=== PATIENT | female | born 1990 | race African-American/Black ===

== ENCOUNTER 2016-04-11 18:17 | Emergency (ER) | payer SELFPAY ==
--- NOTE | 2016-04-11 19:41 | ER Document Report ---
ED Flu Like - General Chief Complaint: Flu Symptoms Stated Complaint: BODY ACHES Mode of Arrival: Ambulatory Information source: Patient Notes: Pt is a 26 year old female who presents to the ER today for sore throat, body aches, chills with fever and nausea that began when she woke up this morning. She denies cough, runny nose. TRAVEL OUTSIDE OF THE [place] IN LAST 30 DAYS: No - Related Data Allergies/Adverse Reactions: Sulfa (Sulfonamide Antibiotics) Allergy (Verified 04/11/16 18:20) Past Medical History - General Information source: Patient - Social History Smoking Status: Never Smoker Chew tobacco use (# tins/day): No Frequency of alcohol use: Occasional Drug Abuse: None Family History: CAD, CVA, DM, Hypertension, Malignancy Patient has suicidal ideation: No Patient has homicidal ideation: No Endocrine Medical History: Reports: Hx Diabetes Mellitus Type 1, Hx Diabetes Mellitus Type 2 Past Surgical History: Reports: Hx Section - x2, Hx Tubal Ligation - Immunizations Immunizations up to date: Yes Hx Diphtheria, Pertussis, Tetanus Vaccination: Yes Review of Systems - Review of Systems Constitutional: See HPI EENT: See HPI Cardiovascular: No symptoms reported Respiratory: No symptoms reported Gastrointestinal: No symptoms reported Genitourinary: No symptoms reported Female Genitourinary: No symptoms reported Musculoskeletal: No symptoms reported Skin: No symptoms reported Hematologic/Lymphatic: No symptoms reported Neurological/Psychological: No symptoms reported Physical Exam - Notes Notes: PHYSICAL EXAMINATION: GENERAL: Obviously uncomfortable, mildly ill-appearing, but in no acute distress. HEAD: Atraumatic, normocephalic. EYES: Pupils equal round and reactive to light, extraocular movements intact, sclera anicteric, conjunctiva are normal. ENT: ear canals without erythema or foreign body, TMs pearly ram with good bony landmarks, nares patent, oropharynx erythematous with enlarged tonsils bilaterally with exudates. Moist mucous membranes. NECK: Normal range of motion, supple with cervical bilateral lymphadenopathy , tender LUNGS: CTAB and equal. No wheezes rales or rhonchi. HEART: Regular rate and rhythm without murmurs EXTREMITIES: Normal range of motion, no pitting edema. No cyanosis. NEUROLOGICAL: Cranial nerves grossly intact. Normal sensory/motor exams. PSYCH: Normal mood, normal affect. SKIN: Warm, Dry, normal turgor, no rashes or lesions noted Course - Re-evaluation Re-evalutation: 04/11/16 20:30 04/11/16 21:17 Pt is positive for strep. She received magic mouthwash to take home. She also received her first abx dose here. Discharge - Discharge Clinical Impression: Strep pharyngitis Condition: Stable Disposition: HOME, SELF-CARE Additional Instructions: Return immediately for any new or worsening symptoms. Follow up with primary care provider, call tomorrow to make followup appointment. Prescriptions: Amoxicillin 500 mg PO BID #20 capsule Ibuprofen [Motrin 800 mg Tablet] 800 mg PO Q8H PRN #30 tab PRN Reason: Forms: Return to Work
[2016-04-11] MEDS ORDERED: CYCLOBENZAPRINE HCL 10 MG TABLET PO ONE (20:28)
[2016-04-11] MEDS ORDERED: IBUPROFEN 800 MG TABLET PO ONE (20:28)
[2016-04-11] MEDS ORDERED: NYSTATIN/DEXAMETH/DIPHEN SUSP 120 ML PO ONE (20:28)
[2016-04-11] MEDS ORDERED: AMOXICILLIN TRIHYDRATE 500 MG CAPSULE PO ONE (20:52)
[2016-04-11 21:27] VITALS: BP 132/67
== END 2016-04-11 21:32 | disposition home or self-care (01) ==
LOC: ER 18:17
DX: J02.0 Streptococcal pharyngitis (principal); R52 Pain, unspecified; R50.9 Fever, unspecified; R11.0 Nausea
CPT/HCPCS: 99283; 87880; 87804; J3490

== ENCOUNTER 2016-04-29 12:22 | Emergency (ER) | payer SELFPAY ==
[2016-04-29 12:47] VITALS: BP 132/81
--- NOTE | 2016-04-29 13:05 | ER Document Report ---
ED Medical Screen (RME) - General Chief Complaint: Lip Swelling Stated Complaint: THROAT PAIN Mode of Arrival: Ambulatory Information source: Patient Notes: 26 y/o F presents to ED c/o sore throat and left lower lip swelling which she noted this morning. Reports recent dx of strep throat. Denies difficulty breathing or swallowing. TRAVEL OUTSIDE OF THE [place] IN LAST 30 DAYS: No - Related Data Allergies/Adverse Reactions: No Known Allergies Allergy (Verified 04/29/16 12:58) Past Medical History - Social History Frequency of alcohol use: Occasional Drug Abuse: None Family history: Reviewed & Not Pertinent Endocrine Medical History: Reports: Hx Diabetes Mellitus Type 1, Hx Diabetes Mellitus Type 2 Renal/ Medical History: Denies: Hx Peritoneal Dialysis Past Surgical History: Reports: Hx Section - x2, Hx Tubal Ligation - Immunizations Immunizations up to date: Yes Hx Diphtheria, Pertussis, Tetanus Vaccination: Yes Physical Exam - Vital signs Vitals: Temp Pulse BP Pulse Ox 98.1 F 75 132/81 H 99 04/29/16 12:46 04/29/16 12:46 04/29/16 12:46 04/29/16 12:46 - General General appearance: Appears well, Alert In distress: None Course - Vital Signs Vital signs: Temp Pulse Resp BP Pulse Ox 98.1 F 75 132/81 H 99 04/29/16 12:46 04/29/16 12:46 04/29/16 12:46 04/29/16 12:46
--- NOTE | 2016-04-29 13:27 | ER Document Report ---
ED ENT - General Chief Complaint: Lip Swelling Stated Complaint: THROAT PAIN Mode of Arrival: Ambulatory TRAVEL OUTSIDE OF THE [place] IN LAST 30 DAYS: No - Related Data Allergies/Adverse Reactions: No Known Allergies Allergy (Verified 04/29/16 12:58) Past Medical History - General Information source: Patient - Social History Smoking Status: Never Smoker Frequency of alcohol use: Occasional Drug Abuse: None Family History: CAD, CVA, DM, Hypertension, Malignancy Patient has suicidal ideation: No Patient has homicidal ideation: No Endocrine Medical History: Reports: Hx Diabetes Mellitus Type 1, Hx Diabetes Mellitus Type 2 Renal/ Medical History: Denies: Hx Peritoneal Dialysis Past Surgical History: Reports: Hx Section - x2, Hx Tubal Ligation - Immunizations Immunizations up to date: Yes Hx Diphtheria, Pertussis, Tetanus Vaccination: Yes Physical Exam - Vital signs Vitals: Temp Pulse BP Pulse Ox 98.1 F 75 132/81 H 99 04/29/16 12:46 04/29/16 12:46 04/29/16 12:46 04/29/16 12:46 Interpretation: Normal. No: Tachycardic, Hypoxic, Tachypneic, Febrile Course - Re-evaluation Re-evalutation: 04/29/16 14:11 Results rapid strep test discussed with patient. Patient admits to being poorly compliant with previous antibiotic prescription, saying that she stopped about 2 days early. - Vital Signs Vital signs: Temp Pulse Resp BP Pulse Ox 98.1 F 75 132/81 H 99 04/29/16 12:46 04/29/16 12:46 04/29/16 12:46 04/29/16 12:46 Discharge - Discharge Clinical Impression: Strep pharyngitis Condition: Stable Disposition: HOME, SELF-CARE Instructions: Strep Throat ([facility]), Amoxicillin ([facility]) Additional Instructions: TAKE AMOXICILLIN DIRECTED, STARTING TODAY AND CONTINUING FOR THE FULL 14 DAYS PRESCRIBED. TAKE BENADRYL, 25-50 mg EVERY 4 TO 6 HOURS TO HELP REDUCE SWELLING IN LIP. RETURN FOR RE-EVALUATION IF YOU GET WORSE, ANY TIME. Prescriptions: Amoxicillin Trihydrate [Amoxil 500 mg Capsule] 500 mg PO TID #42 cap
[2016-04-29] MEDS ORDERED: DIPHENHYDRAMINE HCL 25 MG CAPSULE PO ONE (14:18)
== END 2016-04-29 14:24 | disposition home or self-care (01) ==
LOC: ER 12:22
DX: J02.0 Streptococcal pharyngitis (principal); E11.9 Type 2 diabetes mellitus without complications
CPT/HCPCS: 87880; 99283

== ENCOUNTER 2016-12-02 02:18 | Emergency (ER) | payer SELFPAY ==
--- NOTE | 2016-12-02 02:57 | ER Document Report ---
ED General - General Chief Complaint: Foot Pain Stated Complaint: FALL/FOOT PAIN Time Seen by Provider: 12/02/16 02:52 Notes: Patient is a 26-year-old female presents with complaint of pain in her right foot. Patient says that someone stepped on her foot she has severe pain and she has pain with bearing weight. No numbness the foot. No pain in his ankle. Injuries only to the distal foot itself. No other complaints at this time. TRAVEL OUTSIDE OF THE [place] IN LAST 30 DAYS: No - Related Data Allergies/Adverse Reactions: No Known Allergies Allergy (Verified 12/02/16 02:21) Past Medical History - Social History Smoking Status: Unknown if Ever Smoked Frequency of alcohol use: None Drug Abuse: None Family History: CAD, CVA, DM, Hypertension, Malignancy Patient has suicidal ideation: No Patient has homicidal ideation: No Endocrine Medical History: Reports: Hx Diabetes Mellitus Type 1, Hx Diabetes Mellitus Type 2 Renal/ Medical History: Denies: Hx Peritoneal Dialysis Past Surgical History: Reports: Hx Section - x2, Hx Tubal Ligation - Immunizations Immunizations up to date: Yes Hx Diphtheria, Pertussis, Tetanus Vaccination: Yes Review of Systems - Review of Systems Notes: My Normal Review Basic REVIEW OF SYSTEMS: MUSCULOSKELETAL: Right foot pain SKIN: Denies rash or skin lesions. NEUROLOGICAL: Denies sensory or motor loss. ALL OTHER SYSTEMS REVIEWED AND NEGATIVE. Physical Exam - Vital signs Vitals: Temp Pulse Resp BP Pulse Ox 98.1 F 78 18 143/80 H 100 12/02/16 02:21 12/02/16 02:21 12/02/16 02:21 12/02/16 02:21 12/02/16 02:21 - Notes Notes: General Appearance: Well nourished, alert, cooperative, no acute distress, no obvious discomfort. Vitals: reviewed, See vital signs table. Extremities: strength 5/5 in all extremities, good pulses in all extremities, mild swelling of the dorsum of the right foot mainly at the first MTP joint. Pain to palpation of the distal third of the foot. Remainder of the foot is nontender. Patient is able to flex and extend her toes without difficulty. Skin: warm, dry, appropriate color, no rash Neuro: speech clear, oriented x 3, normal affect, responds appropriately to questions. Distal sensation intact. Course - Re-evaluation Re-evalutation: 12/02/16 04:03 Patient's x-rays negative. I offered patient crutches but states that she does not need them and said she is able to walk. Patient discharged but encouraged to return to ER if she has worsening pain or further concerns. Dictation of this chart was performed using voice recognition software; therefore, there may be some unintended grammatical errors. - Vital Signs Vital signs: Temp Pulse Resp BP Pulse Ox 98.1 F 78 18 143/80 H 100 12/02/16 02:21 12/02/16 02:21 12/02/16 02:21 12/02/16 02:21 12/02/16 02:21 Discharge - Discharge Clinical Impression: Contusion of foot, right Qualifiers: Encounter type: initial encounter Qualified Code(s): S90.31XA - Contusion of right foot, initial encounter Condition: Good Disposition: HOME, SELF-CARE Additional Instructions: Please return to the ER immediately if you develop worsening pain, redness or increased swelling to your foot, or if you have further concerns. Please take Motrin and Tylenol for pain. Forms: Return to Work
--- NOTE | 2016-12-02 03:53 | RADIOLOGY REPORT (SQ) ---
EXAM DESCRIPTION: FOOT RIGHT 2 VIEWS COMPLETED DATE/TIME: 12/02/2016 3:18 am REASON FOR STUDY: trauma. Fall. Pain on top of the right foot in the middle. COMPARISON: None. NUMBER OF VIEWS: Two views. TECHNIQUE: AP and lateral radiographic images acquired of the right foot. LIMITATIONS: None. FINDINGS: MINERALIZATION: Normal. BONES: No acute fracture or dislocation. SOFT TISSUES: No soft tissue swelling. No radiopaque foreign body. IMPRESSION: No radiographic evidence of acute injury. TECHNICAL DOCUMENTATION: JOB ID: [id number] [employer]- All Rights Reserved
[2016-12-02 04:31] VITALS: BP 174/90
== END 2016-12-02 04:29 | disposition home or self-care (01) ==
LOC: ER 02:18
DX: S90.31XA Contusion of right foot, initial encounter (principal); W50.0XXA Accidental hit or strike by another person, initial encounter; E11.9 Type 2 diabetes mellitus without complications; Z98.51 Tubal ligation status
CPT/HCPCS: 99283

== ENCOUNTER 2017-01-11 21:09 | Emergency (ER) | payer SELFPAY ==
[2017-01-11 21:24] VITALS: BP 147/87
== END 2017-01-11 22:20 | disposition left against medical advice (07) ==
LOC: ER 21:09
DX: Z53.9 Procedure and treatment not carried out, unspecified reason (principal); R10.9 Unspecified abdominal pain

== ENCOUNTER 2017-05-11 04:54 | Emergency (ER) | payer SELFPAY ==
[2017-05-11 04:59] VITALS: BP 145/90
[2017-05-11] MEDS ORDERED: HYDROCODONE/ACETAMINOPHEN 5-325 MG TABLET PO ONE (05:24)
[2017-05-11] MEDS ORDERED: HYDROCODONE/ACETAMINOPHEN 5-325 MG (6 TAB/ER DISP) PO PRN (05:24)
--- NOTE | 2017-05-11 05:26 | ER Document Report ---
ED Oral Problem - General Chief Complaint: Toothache Stated Complaint: FACE SWELLING Time Seen by Provider: 05/11/17 05:18 Mode of Arrival: Ambulatory Information source: Patient Notes: Patient is a 27-year-old female who presents to the ER today for a broken tooth to the upper left jaw that broke yesterday and she was eating. Patient admits to a little bit of swelling to the area and a lot of pain. She has used multiple epci-sty-rxrhyiz numbing agents as well as ibuprofen and Tylenol and she states she cannot sleep. She states that she has contacted a dentist and has an appointment set up. TRAVEL OUTSIDE OF THE [place] IN LAST 30 DAYS: No - Related Data Allergies/Adverse Reactions: No Known Allergies Allergy (Verified 12/02/16 02:21) Past Medical History - General Information source: Patient - Social History Smoking Status: Never Smoker Frequency of alcohol use: Occasional Drug Abuse: None Family History: CAD, CVA, DM, Hypertension, Malignancy Patient has suicidal ideation: No Patient has homicidal ideation: No Endocrine Medical History: Reports: Hx Diabetes Mellitus Type 1, Hx Diabetes Mellitus Type 2 Renal/ Medical History: Denies: Hx Peritoneal Dialysis Past Surgical History: Reports: Hx Section - x2, Hx Tubal Ligation - Immunizations Immunizations up to date: Yes Hx Diphtheria, Pertussis, Tetanus Vaccination: Yes Review of Systems - Review of Systems Constitutional: No symptoms reported EENT: See HPI Cardiovascular: No symptoms reported Respiratory: No symptoms reported Gastrointestinal: No symptoms reported Genitourinary: No symptoms reported Female Genitourinary: No symptoms reported Musculoskeletal: No symptoms reported Skin: No symptoms reported Hematologic/Lymphatic: No symptoms reported Neurological/Psychological: No symptoms reported Physical Exam - Vital signs Vitals: Temp Pulse Resp BP Pulse Ox 99.0 F 89 18 145/90 H 99 05/11/17 04:55 05/11/17 04:55 05/11/17 04:55 05/11/17 04:55 05/11/17 04:55 - Notes Notes: but PHYSICAL EXAMINATION: GENERAL: uncomfortable appearing, in no acute distress. HEAD: Atraumatic, normocephalic. EYES: Pupils equal round and reactive to light, extraocular movements intact, sclera anicteric, conjunctiva are normal. ENT: ear canals without erythema or foreign body, TMs pearly ram with good bony landmarks, nares patent, oropharynx clear without exudates. Moist mucous membranes. Tooth #12 with open fracture, tender to palpation, no erythema or edema, no drainage noted NECK: Normal range of motion, supple without lymphadenopathy LUNGS: CTAB and equal. No wheezes rales or rhonchi. HEART: Regular rate and rhythm without murmurs EXTREMITIES: Normal range of motion, no pitting edema. No cyanosis. NEUROLOGICAL: Cranial nerves grossly intact. Normal sensory/motor exams. PSYCH: Normal mood, normal affect. SKIN: Warm, Dry, normal turgor, no rashes or lesions noted Course - Vital Signs Vital signs: Temp Pulse Resp BP Pulse Ox 99.0 F 89 18 145/90 H 99 05/11/17 04:55 05/11/17 04:55 05/11/17 04:55 05/11/17 04:55 05/11/17 04:55 Discharge - Discharge Clinical Impression: Tooth fracture Qualifiers: Encounter type: initial encounter Fracture type: open Qualified Code(s): S02.5XXB - Fracture of tooth (traumatic), initial encounter for open fracture Condition: Stable Disposition: HOME, SELF-CARE Additional Instructions: Return immediately for any new or worsening symptoms. Follow up with Dentist, call tomorrow to make followup appointment. Prescriptions: Amoxicillin 500 mg PO BID #20 capsule Referrals: [facility] [Provider Group] - Follow up as needed
== END 2017-05-11 05:36 | disposition home or self-care (01) ==
LOC: ER 04:54
DX: S02.5XXB Fracture of tooth (traumatic), initial encounter for open fracture (principal); X58.XXXA Exposure to other specified factors, initial encounter; E11.9 Type 2 diabetes mellitus without complications; Z98.51 Tubal ligation status
CPT/HCPCS: 99283

== ENCOUNTER 2017-11-12 22:05 | Emergency (ER) | payer SELFPAY ==
--- NOTE | 2017-11-13 01:04 | ER Document Report ---
ED General - General Chief Complaint: Passed Out Prior to Arrival Stated Complaint: FAINTED,DIZZINESS,BLURRY VISION Time Seen by Provider: 11/13/17 00:30 TRAVEL OUTSIDE OF THE [place] IN LAST 30 DAYS: No - HPI Patient complains to provider of: Lightheadedness and weakness Onset: Other - 27-year-old insulin-dependent diabetic presents for evaluation of lightheadedness and weight is which she has had intermittently worsening over last week prompting her to seek care tonight. She notes that she ran out of insulin and Lantus a while back so decided to stop taking them. She has not seen a doctor in a long time, denies any constipation diarrhea dysuria abdominal pain cramps chest pain palpitations shortness of breath or other symptoms. Denies any focal numbness or weakness. Nothing makes it better nothing makes it worse - Related Data Allergies/Adverse Reactions: No Known Allergies Allergy (Verified 12/02/16 02:21) Past Medical History - Social History Smoking Status: Never Smoker Cigarette use (# per day): No Chew tobacco use (# tins/day): No Family History: CAD, CVA, DM, Hypertension, Malignancy Endocrine Medical History: Reports: Hx Diabetes Mellitus Type 1, Hx Diabetes Mellitus Type 2 Renal/ Medical History: Denies: Hx Peritoneal Dialysis Past Surgical History: Reports: Hx Section - x2, Hx Tubal Ligation - Immunizations Immunizations up to date: Yes Hx Diphtheria, Pertussis, Tetanus Vaccination: Yes Review of Systems - Review of Systems -: Yes All other systems reviewed and negative Physical Exam - Vital signs Vitals: Temp Pulse Resp BP Pulse Ox 98.3 F 56 L 18 140/78 H 91 L 11/12/17 22:13 11/12/17 22:13 11/12/17 22:13 11/12/17 22:13 11/12/17 22:13 - General General appearance: Appears well In distress: None - HEENT Head: Normocephalic Eyes: Normal Conjunctiva: Normal Cornea: Normal - Respiratory Respiratory status: No respiratory distress Chest status: Nontender Breath sounds: Normal Chest palpation: Normal - Cardiovascular Rhythm: Regular Heart sounds: Normal auscultation Murmur: No - Abdominal Inspection: Normal Bowel sounds: Normal Tenderness: Nontender - Back Back: Normal - Extremities General upper extremity: Normal inspection General lower extremity: Normal inspection Shoulder: Normal - Neurological Neuro grossly intact: Yes Cognition: Normal Orientation: AAOx4 - Psychological Associated symptoms: Normal affect Course - Re-evaluation Re-evalutation: 11/13/17 03:57 This 27-year-old insulin-dependent diabetic presented for evaluation of some lightheadedness. She notes that she has been off of her insulin ever since running out several weeks ago because it is too expensive for her to see her primary physician. She denies any recent trauma fevers chills or other symptoms at this time. She is neurologically intact has benign examination. Blood glucose is in the 360 range otherwise has a relatively unremarkable chemistry and count. We will plan for administration of subcutaneous insulin. Patient's blood glucose improved after administration of insulin, [id number] glucose downtrending. Patient will follow up with primary physician in regards to initiating treatment with insulin as previously. She is ambulatory able to tolerate p.o. and well-appearing at the time of discharge. She agrees with current course of action will return for any worsening symptoms. - Vital Signs Vital signs: Temp Pulse Resp BP Pulse Ox 98.3 F 56 L 18 140/78 H 91 L 11/12/17 22:13 11/12/17 22:13 11/12/17 22:13 11/12/17 22:13 11/12/17 22:13 - Laboratory Result Diagrams: 11/13/17 00:45 11/13/17 00:45 Laboratory results interpreted by me: 11/13/17 11/13/17 11/13/17 00:45 00:45 01:27 Hgb 9.0 L Hct 29.1 L MCV 66 L MCH 20.5 L MCHC 30.9 L RDW 18.2 H Sodium 136.9 L Glucose 348 H POC Glucose AST 38 H Urine Glucose (UA) >=500 H 11/13/17 02:58 Hgb Hct MCV MCH MCHC RDW Sodium Glucose POC Glucose 337 H AST Urine Glucose (UA) Discharge - Discharge Clinical Impression: Hyperglycemia Condition: Stable Disposition: HOME, SELF-CARE Instructions: Diabetes ([facility]), Insulin ([facility]) Additional Instructions: You were seen today in the emergency department for your high blood sugar, he had an evaluation including a physical exam as well as an EKG and tests of your blood. It appears that your elevated blood sugar is likely causing her symptoms, you need to call your physician today to schedule an appointment this week to restart taking your insulin. Return for any worsening headache numbness or weakness inability to eat or drink nausea or vomiting.
[2017-11-13 01:22] LABS: ABSOLUTE EOSINOPHILS # (AUTO) 0.1 10^3/uL (0.0-0.6); ABSOLUTE LYMPHOCYTES (AUTO) 2.9 10^3/uL (0.5-4.7); ABSOLUTE MONOCYTES (AUTO) 0.5 10^3/uL (0.1-1.4); ABSOLUTE NEUT (AUTO) 3.3 10^3/uL (1.7-8.2); ALANINE AMINOTRANSFERASE 44 U/L (9-52); ALBUMIN 3.9 g/dL (3.5-5.0); ALKALINE PHOSPHATASE 96 U/L (38-126); ANION GAP 12 (5-19); ASPARTATE AMINO TRANSFERASE 38 U/L (14-36); BASOPHILS % (AUTO) 0.6 % (0-2); BILIRUBIN,DIRECT 0.2 mg/dL (0.0-0.4); BILIRUBIN,TOTAL 0.3 mg/dL (0.2-1.3); BLOOD UREA NITROGEN 8 mg/dL (7-20); CALCIUM 9.5 mg/dL (8.4-10.2); CARBON DIOXIDE 24 mmol/L (22-30); CHLORIDE 101 mmol/L (98-107); EOSINOPHILS % (AUTO) 0.9 % (0-6); GLUCOSE 348 mg/dL (75-110); HEMATOCRIT 29.1 % (36.0-47.0); LYMPHOCYTES % (AUTO) 43.4 % (13-45); MEAN CORPUSCULAR HEMOGLOBIN 20.5 pg (27.0-33.4); MEAN CORPUSCULAR HGB CONC 30.9 g/dL (32.0-36.0); MEAN CORPUSCULAR VOLUME 66 fl (80-97); PLATELET COUNT 354 10^3/uL (150-450); RED BLOOD COUNT 4.38 10^6/uL (3.72-5.28); RED CELL DISTRIBUTION WIDTH 18.2 % (11.5-14.0); SEGMENTED NEUTROPHILS % (AUTO) 48.1 % (42-78); SODIUM 136.9 mmol/L (137-145); TOTAL CELLS COUNTED % (AUTO) 100 %; TOTAL PROTEIN 7.3 g/dL (6.3-8.2); WHITE BLOOD COUNT 6.8 10^3/uL (4.0-10.5)
[2017-11-13] MEDS ORDERED: INSULIN REG, HUMAN 100 UNIT/ML 3 ML VIAL (PYX) SUBCUT ONE (01:41)
[2017-11-13 02:10] LABS: APPEARANCE,URINE CLEAR; BILIRUBIN,URINE NEGATIVE (NEGATIVE); COLOR,URINE STRAW; GLUCOSE, URINE >=500 mg/dL (NEGATIVE); KETONES,URINE NEGATIVE (NEGATIVE); LEUKOCYTE ESTERASE,URINE NEGATIVE (NEGATIVE); NITRITE,URINE NEGATIVE (NEGATIVE); PROTEIN,URINE NEGATIVE (NEGATIVE); URINE SPECIFIC GRAVITY 1.037; UROBILINOGEN,URINE NEGATIVE mg/dL (<2.0)
[2017-11-13 03:59] VITALS: BP 121/65
--- NOTE | 2017-11-13 11:31 | EKG REPORT ---
SEVERITY:- NORMAL ECG - SINUS RHYTHM : Confirmed by: Anna De Leon MD 13-Nov-2017 11:30:35
== END 2017-11-13 04:07 | disposition home or self-care (01) ==
LOC: ER 22:05
DX: E11.65 Type 2 diabetes mellitus with hyperglycemia (principal); R55 Syncope and collapse; R42 Dizziness and giddiness; H53.8 Other visual disturbances; R53.1 Weakness; Z79.4 Long term (current) use of insulin; Z91.19 Patient's noncompliance with other medical treatment and regimen
CPT/HCPCS: 93005; 99284; 36415; 82962; 85025; 81025; 80053; 81001; 93010; J1815

== ENCOUNTER 2018-03-03 08:27 | Emergency (ER) | payer SELFPAY ==
[2018-03-03 08:33] VITALS: BP 131/78
--- NOTE | 2018-03-03 09:38 | ER Document Report ---
ED Foreign Body - General Chief Complaint: Foreign Body in Vagina Stated Complaint: STOMACH PAIN, FB IN VAGINA Time Seen by Provider: 03/03/18 09:11 TRAVEL OUTSIDE OF THE [place] IN LAST 30 DAYS: No - HPI Notes: Patient is a 27 yo female that presents to the emergency department for chief complaint of tampon stuck in vagina. Patient inserted a tampon in her vagina yesterday morning. She forgot that it was in there and had intercourse with her last night. Today she remembered and was unable to feel or retrieve the tampon. She denies any vaginal discharge or bleeding currently. She denies any pelvic pain or pressure. She does have diabetes which she states is well controlled. She denies any concern for STD. She denies any dysuria or hematuria Past Medical History: Diabetes Past Surgical History: Negative Social History: Occasional cigars. Occasional alcohol. Denies drug use Family History: Reviewed and noncontributory for presenting illness Allergies: Reviewed, see documented allergy list. REVIEW OF SYSTEMS: CONSTITUTIONAL : No fever No chills No diaphoresis No recent illness EENT: No vision changes No congestion No sore throat CARDIOVASCULAR: No chest pain No palpitations RESPIRATORY: No shortness of breath No cough No difficulty breathing GASTROINTESTINAL: No abdominal pain No nausea No vomiting No diarrhea GENITOURINARY: No dysuria No hematuria No difficulty urinating MUSCULOSKELETAL: No back pain No leg pain No arm pain SKIN: No rashes No lesions LYMPHATIC: No swollen, enlarged glands. NEUROLOGICAL: No lightheadedness No headache No weakness No paresthesias PSYCHIATRIC: No anxiety No depression PHYSICAL EXAMINATION: Vital signs reviewed, nursing noted reviewed. GENERAL: Well-appearing, well-nourished and in no acute distress. HEAD: Atraumatic, normocephalic. EYES: Eyes appear normal, extraocular movements intact, sclera anicteric, conjunctiva are normal. ENT: nares patent, oropharynx clear without exudates. Moist mucous membranes. NECK: Normal range of motion, supple without lymphadenopathy LUNGS: Breath sounds clear to auscultation bilaterally and equal. No wheezes rales or rhonchi. HEART: Regular rate and rhythm without murmurs ABDOMEN: Soft, nontender, normoactive bowel sounds. No rebound, guarding, or rigidity. No masses appreciated. : No vaginal bleeding or discharge. Large dry tampon in vagina EXTREMITIES: Nontender, good range of motion, no pitting or edema. NEUROLOGICAL: No focal neurological deficits. Moves all extremities spontaneously Motor and sensory grossly intact on exam. PSYCH: Normal mood, normal affect. SKIN: Warm, Dry, normal turgor, no rashes or lesions noted on exposed skin - Related Data Allergies/Adverse Reactions: No Known Allergies Allergy (Verified 12/02/16 02:21) Past Medical History - Social History Smoking Status: Current Some Day Smoker Family History: CAD, CVA, DM, Hypertension, Malignancy Endocrine Medical History: Reports: Hx Diabetes Mellitus Type 1, Hx Diabetes Mellitus Type 2 Renal/ Medical History: Denies: Hx Peritoneal Dialysis Past Surgical History: Reports: Hx Section - x2, Hx Tubal Ligation - Immunizations Immunizations up to date: Yes Hx Diphtheria, Pertussis, Tetanus Vaccination: Yes Physical Exam - Vital signs Vitals: Temp Pulse Resp BP Pulse Ox 98.0 F 84 16 131/78 H 99 03/03/18 08:32 03/03/18 08:32 03/03/18 08:32 03/03/18 08:32 03/03/18 08:32 Course - Re-evaluation Re-evalutation: 03/03/18 09:36 Vitals reviewed. Nursing notes reviewed. Patient had an impacted tampon which was removed in the emergency room. She is not having any pelvic pain or vaginal discharge requiring antibiotics. I did investment counselor her on monitoring for increased pain or vaginal discharge and bleeding. She will be referred to gynecology for follow-up if symptoms begin. Or she will return to the emergency room for any new or worsening symptoms. She is stable at discharge. Prophylactic antibiotics not currently indicated. - Vital Signs Vital signs: Temp Pulse Resp BP Pulse Ox 98.0 F 84 16 131/78 H 99 03/03/18 08:32 03/03/18 08:32 03/03/18 08:32 03/03/18 08:32 03/03/18 08:32 Procedures - Additional Procedures Foreign body removal Time performed: 09:37 Notes: 03/03/18 09:37 Pelvic exam performed using sterile speculum. Direct visualization of tampon with removal using long alligator forceps. No complications. Patient tolerated well. No bleeding. Discharge - Discharge Clinical Impression: Foreign body in vagina Qualifiers: Encounter type: initial encounter Qualified Code(s): T19.2XXA - Foreign body in vulva and vagina, initial encounter Condition: Stable Disposition: HOME, SELF-CARE Instructions: Foreign Body ([facility]) Additional Instructions: Please return to the emergency department if you have any worsening, or concern of your symptoms. Please return to the emergency department if you develop chest pain, difficulty breathing, severe abdominal pain, or ongoing vomiting. Please follow-up with your primary care physician in 2-3 days and any other recommended physicians. If prescribed, take all medications as directed. If you have any questions or concerns do not hesitate to return the emergency department for evaluation. Return to the emergency room or follow-up with gynecology if you develop increased pelvic pain or vaginal discharge Referrals: [facility] [Provider Group] - Follow up as needed
== END 2018-03-03 09:30 | disposition home or self-care (01) ==
LOC: ER 08:27
DX: T19.2XXA Foreign body in vulva and vagina, initial encounter (principal); X58.XXXA Exposure to other specified factors, initial encounter; E11.9 Type 2 diabetes mellitus without complications; F17.290 Nicotine dependence, other tobacco product, uncomplicated
CPT/HCPCS: 99283

== ENCOUNTER 2018-04-15 10:42 | Emergency (ER) | payer SELFPAY ==
[2018-04-15] MEDS ORDERED: ONDANSETRON 4 MG TAB.RAPDIS PO ONE (10:58)
[2018-04-15] MEDS ORDERED: OXYCODONE-ACETAMINOPHEN 5-325 MG TABLET PO ONE (10:58)
--- NOTE | 2018-04-15 11:10 | ER Document Report ---
ED Medical Screen (RME) - General Chief Complaint: Abdominal Pain Stated Complaint: SIDE PAIN Time Seen by Provider: 04/15/18 10:54 Notes: RAPID MEDICAL EVALUATION DISCLOSURE I have seen this patient as part of a Rapid Medical Evaluation and, if applicable, placed any initially appropriate orders. The patient will be seen and fully evaluated, including a full history and physical exam, by a provider (in Main ED or Fast Track) when a room becomes available. 28-year-old female PMH CKD here with complaints of right flank pain nonradiating sharp intermittent as well as hematuria ongoing for the past 1 day. She has associated nausea but no vomiting diarrhea dysuria fevers chills. She denies any previous history of kidney stones. EXAM Minimal right upper quadrant TTP Mild to moderate right flank TTP No CVA TTP TRAVEL OUTSIDE OF THE [place] IN LAST 30 DAYS: No - Related Data Allergies/Adverse Reactions: No Known Allergies Allergy (Verified 04/15/18 10:45) Past Medical History - Social History Family history: Reviewed & Not Pertinent Endocrine Medical History: Reports: Hx Diabetes Mellitus Type 1, Hx Diabetes Mellitus Type 2 Renal/ Medical History: Denies: Hx Peritoneal Dialysis Past Surgical History: Reports: Hx Section - x2, Hx Tubal Ligation - Immunizations Immunizations up to date: Yes Hx Diphtheria, Pertussis, Tetanus Vaccination: Yes Physical Exam - Vital signs Vitals: Temp Pulse Resp BP Pulse Ox 98.2 F 95 16 141/91 H 100 04/15/18 10:49 04/15/18 10:49 04/15/18 10:49 04/15/18 10:49 04/15/18 10:49 Course - Vital Signs Vital signs: Temp Pulse Resp BP Pulse Ox 98.2 F 95 16 141/91 H 100 04/15/18 10:49 04/15/18 10:49 04/15/18 10:49 04/15/18 10:49 04/15/18 10:49
[2018-04-15 11:31] LABS: APPEARANCE,URINE SLIGHTLY-CLOUDY; BILIRUBIN,URINE NEGATIVE (NEGATIVE); COLOR,URINE STRAW; GLUCOSE, URINE >=500 mg/dL (NEGATIVE); KETONES,URINE NEGATIVE (NEGATIVE); LEUKOCYTE ESTERASE,URINE TRACE (NEGATIVE); NITRITE,URINE POSITIVE (NEGATIVE); PROTEIN,URINE NEGATIVE (NEGATIVE); URINE SPECIFIC GRAVITY 1.029; UROBILINOGEN,URINE NEGATIVE mg/dL (<2.0)
--- NOTE | 2018-04-15 11:39 | ER Document Report ---
ED General - General Chief Complaint: Abdominal Pain Stated Complaint: SIDE PAIN Time Seen by Provider: 04/15/18 10:54 Notes: Patient is a 28-year-old female with diabetes that presents to the emergency department for chief complaint of right flank pain. Patient states that she started having this pain yesterday and got progressively worse, she is had urinary frequency associated, denies fevers, chills but had nausea but no vomiting. She currently rates her pain as a 4 out of 10, describes as an aching and constant throbbing sensation on her right flank, worse with palpation to that area. She also reports that she has been poorly compliant with her diabetic medications, she was on Lantus, but cannot afford to buy it anymore, has not followed up with her physician was curious what her sugars were today. Past Medical History: Diabetes mellitus Past Surgical History: Denies surgical history Social History: Admits to smoking cigarettes, denies alcohol or drug use. Family History: Reviewed and noncontributory for presenting illness Allergies: Reviewed, see documented allergy list. REVIEW OF SYSTEMS: Other than noted above, the 12 point review of systems was reviewed with the patient and were negative, all pertinent findings are included in the HPI. PHYSICAL EXAMINATION: Vital signs reviewed, nursing noted reviewed. GENERAL: Well-appearing, well-nourished and in no acute distress. HEAD: Atraumatic, normocephalic. EYES: Eyes appear normal, extraocular movements intact, sclera anicteric, conjunctiva are normal. ENT: nares patent, oropharynx clear without exudates. Moist mucous membranes. NECK: Normal range of motion, supple without lymphadenopathy LUNGS: Breath sounds clear to auscultation bilaterally and equal. No wheezes rales or rhonchi. HEART: Regular rate and rhythm without murmurs ABDOMEN: Soft, right flank tenderness to palpation, normoactive bowel sounds. No rebound, guarding, or rigidity. No masses appreciated. EXTREMITIES: Nontender, good range of motion, no pitting or edema. NEUROLOGICAL: No focal neurological deficits. Moves all extremities spontaneously Motor and sensory grossly intact on exam. PSYCH: Normal mood, normal affect. SKIN: Warm, Dry, normal turgor, no rashes or lesions noted on exposed skin TRAVEL OUTSIDE OF THE [place] IN LAST 30 DAYS: No - Related Data Allergies/Adverse Reactions: No Known Allergies Allergy (Verified 04/15/18 10:45) Past Medical History - Social History Smoking Status: Current Every Day Smoker Chew tobacco use (# tins/day): No Frequency of alcohol use: None Drug Abuse: None Family History: CAD, CVA, DM, Hypertension, Malignancy Patient has suicidal ideation: No Patient has homicidal ideation: No Endocrine Medical History: Reports: Hx Diabetes Mellitus Type 1, Hx Diabetes Mellitus Type 2 Renal/ Medical History: Denies: Hx Peritoneal Dialysis Past Surgical History: Reports: Hx Section - x2, Hx Tubal Ligation - Immunizations Immunizations up to date: Yes Hx Diphtheria, Pertussis, Tetanus Vaccination: Yes Physical Exam - Vital signs Vitals: Temp Pulse Resp BP Pulse Ox 98.2 F 95 16 141/91 H 100 04/15/18 10:49 04/15/18 10:49 04/15/18 10:49 04/15/18 10:49 04/15/18 10:49 Course - Re-evaluation Re-evalutation: Patient seen and examined vital signs reviewed. Laboratory data and imaging were ordered as appropriate for the patient's pr esenting symptoms and complaint, with consideration of any critical or life threatening conditions that may be associated with their obtained history and exam as noted above. Patient was treated with Percocet, and Zofran, but was still having nausea afterwards therefore is given some Phenergan Results were reviewed when available and demonstrated CT imaging was negative for renal stone, UA was positive for signs of urinary tract infection and consistent with the patient's symptoms, clinically with pyelonephritis, no leukocytosis, she did have hyperglycemia, she has poorly controlled diabetes, is only taking NovoLog based on a scale that she sets on her own. She was given 10 units of regular insulin subcu in the ED. The patient was re-evaluated and was stable and improved Evaluation was most consistent with pyelonephritis, hyperglycemia, uncontrolled diabetes, patient will be discharged to follow-up with primary care, given a prescription for Keflex to be taken for 7 days, follow-up with primary care, patient given a sliding scale to use at this time for her NovoLog, advised to c heck her glucose at least 4 times daily. Results were discussed with the patient at this point, after careful consideration I feel that that patient can be discharged from the emergency department, the patient was educated treatments and reasons to return to the emergency department based on their presumed diagnosis as noted above, they were advised to followup with a primary care physician in 2-3 days. Patient was agreeable to plan of care. *Note is created using voice recognition software and may contain spelling, syntax or grammatical errors. Laboratory 04/15/18 04/15/18 04/15/18 10:58 11:35 11:35 WBC 6.8 RBC 4.97 Hgb 9.6 L Hct 31.2 L MCV 63 L MCH 19.3 L MCHC 30.8 L RDW 16.9 H Plt Count 320 Seg Neutrophils % 60.6 Lymphocytes % 31.9 Monocytes % 5.9 Eosinophils % 1.1 Basophils % 0.5 Absolute Neutrophils 4.1 Absolute Lymphocytes 2.2 Absolute Monocytes 0.4 Absolute Eosinophils 0.1 Absolute Basophils 0.0 Platelet Comment ADEQUATE Polychromasia SLIGHT Hypochromasia 1+ Poikilocytosis SLIGHT Anisocytosis 1+ Microcytosis 3+ Ovalocytes SLIGHT Rouleaux SLIGHT Sodium 134.4 L Potassium 4.3 Chloride 98 Carbon Dioxide 25 Anion Gap 11 BUN 10 Creatinine 0.43 L Est GFR ( Amer) > 60 Est GFR (Non-Af Amer) > 60 Glucose 441 H* Calcium 10.0 Total Bilirubin 0.4 Direct Bilirubin 0.2 Neonat Total Bilirubin Not Reportable Neonat Direct Bilirubin Not Reportable Neonat Indirect Bili Not Reportable AST 38 H ALT 29 Alkaline Phosphatase 128 H Total Protein 7.9 Albumin 4.2 Lipase 177.7 Urine Color STRAW Urine Appearance SLIGHTLY-CLOUDY Urine pH 6.0 Ur Specific Rupert 1.029 Urine Protein NEGATIVE Urine Glucose (UA) >=500 H Urine Ketones NEGATIVE Urine Blood LARGE H Urine Nitrite POSITIVE H Urine Bilirubin NEGATIVE Urine Urobilinogen NEGATIVE Ur Leukocyte Esterase TRACE H Urine WBC (Auto) 24 Urine RBC (Auto) 18 Urine Bacteria (Auto) TRACE Squamous Epi Cells Auto <1 Urine Mucus (Auto) RARE Urine Ascorbic Acid NEGATIVE Urine HCG, Qual NEGATIVE Limited or Localized CT 04/15/18 10:57 IMPRESSION: NO SIGNIFICANT OR ACUTE PROCESS IN THE ABDOMEN OR PELVIS. - Vital Signs Vital signs: Temp Pulse Resp BP Pulse Ox 98.2 F 95 16 141/91 H 100 04/15/18 10:49 04/15/18 10:49 04/15/18 10:49 04/15/18 10:49 04/15/18 10:49 - Laboratory Result Diagrams: 04/15/18 11:35 04/15/18 11:35 Laboratory results interpreted by me: 04/15/18 04/15/18 04/15/18 10:58 11:35 11:35 Hgb 9.6 L Hct 31.2 L MCV 63 L MCH 19.3 L MCHC 30.8 L RDW 16.9 H Sodium 134.4 L Creatinine 0.43 L Glucose 441 H* AST 38 H Alkaline Phosphatase 128 H Urine Glucose (UA) >=500 H Urine Blood LARGE H Urine Nitrite POSITIVE H Ur Leukocyte Esterase TRACE H Discharge - Discharge Clinical Impression: Pyelonephritis, Hyperglycemia Condition: Stable Disposition: HOME, SELF-CARE Instructions: Pyelonephritis ([facility]) Additional Instructions: Please follow-up with the primary care physician, call for an appointment, several have been listed as well. In the meantime, take all prescribed antibiotics until we complete the entire course, take the Pyridium and Phenergan if needed, and please use her insulin according to the following scale when checking your glucose at breakfast, lunch, dinner, and bedtime. Blood Glucose <150 0 units 150-200 2 units 201-250 4 units 251-300 6 units 301-350 8 units 351-400 10 units >400 please call your physician. Prescriptions: Cephalexin Monohydrate [Keflex 500 mg Capsule] 500 mg PO Q8H 5 Days #21 capsule Phenazopyridine HCl [Pyridium 100 Mg Tablet] 100 mg PO TID #9 tablet Promethazine HCl [Phenergan 25 mg Tablet] 1 mg PO Q8 PRN #12 tablet PRN Reason: nausea/vomiting Referrals: [facility] [Provider Group] - Follow up as needed [facility] [Provider Group] - Follow up as needed
[2018-04-15 11:54] LABS: ABSOLUTE EOSINOPHILS # (AUTO) 0.1 10^3/uL (0.0-0.6); ABSOLUTE LYMPHOCYTES (AUTO) 2.2 10^3/uL (0.5-4.7); ABSOLUTE MONOCYTES (AUTO) 0.4 10^3/uL (0.1-1.4); ABSOLUTE NEUT (AUTO) 4.1 10^3/uL (1.7-8.2); BASOPHILS % (AUTO) 0.5 % (0-2); EOSINOPHILS % (AUTO) 1.1 % (0-6); HEMATOCRIT 31.2 % (36.0-47.0); HEMOGLOBIN 9.6 g/dL (12.0-15.5); LYMPHOCYTES % (AUTO) 31.9 % (13-45); MEAN CORPUSCULAR HEMOGLOBIN 19.3 pg (27.0-33.4); MEAN CORPUSCULAR HGB CONC 30.8 g/dL (32.0-36.0); MONOCYTES % (AUTO) 5.9 % (3-13); PLATELET COUNT 320 10^3/uL (150-450); RED BLOOD COUNT 4.97 10^6/uL (3.72-5.28); RED CELL DISTRIBUTION WIDTH 16.9 % (11.5-14.0); SEGMENTED NEUTROPHILS % (AUTO) 60.6 % (42-78); TOTAL CELLS COUNTED % (AUTO) 100 %; WHITE BLOOD COUNT 6.8 10^3/uL (4.0-10.5)
[2018-04-15 11:57] LABS: MEAN CORPUSCULAR VOLUME 63 fl (80-97)
--- NOTE | 2018-04-15 12:03 | RADIOLOGY REPORT (SQ) ---
EXAM DESCRIPTION: CT LTD RENAL STONE PROTOCOL ON COMPLETED DATE/TIME: 04/15/2018 11:53 am REASON FOR STUDY: R flank pain hematuria; stone? COMPARISON: None. TECHNIQUE: CT scan of the abdomen and pelvis performed without intravenous or oral contrast. Images reviewed with lung, soft tissue, and bone windows. Reconstructed coronal and sagittal MPR images revi ewed. All images stored on PACS. All CT scanners at this facility use dose modulation, iterative reconstruction, and/or weight based d osing when appropriate to reduce radiation dose to as low as reasonably achievable (ALARA). [facility]: Dose Right [facility]: CareDose [facility]: Dose Right [facility]: Teradose 4D [facility]: SMS Assist RADIATION DOSE: CT Rad equipment meets quality standard of care and radiation dose reduction techniq ues were employed. CTDIvol: 14.8 mGy. DLP: 814 mGy-cm.mGy. LIMITATIONS: None. FINDINGS: LOWER CHEST: No significant findings. No nodules or infiltrates. NON-CONTRASTED LIVER, SPLEEN, ADRENALS: Evaluation limited by lack of IV contrast. No identified sign ificant masses. PANCREAS: No masses. No peripancreatic inflammatory changes. GALLBLADDER: No identified stones by CT criteria. No inflammatory changes to suggest cholecystitis. RIGHT KIDNEY AND URETER: No suspicious masses. Assessment limited by lack of IV contrast. No signif icant calcifications. No hydronephrosis or hydroureter. LEFT KIDNEY AND URETER: No suspicious masses. Assessment limited by lack of IV contrast. No signifi cant calcifications. No hydronephrosis or hydroureter. AORTA AND RETROPERITONEUM: No aneurysm. No retroperitoneal masses or adenopathy. BOWEL AND PERITONEAL CAVITY: No obvious masses or inflammatory changes. No free fluid. APPENDIX: Normal. PELVIS, BLADDER, AND ABDOMINAL WALL:Diastases of the rectus abdominus muscles. No abnormal masses. N o free fluid. Bladder normal. BONES: No significant findings. OTHER: No other significant finding. IMPRESSION: NO SIGNIFICANT OR ACUTE PROCESS IN THE ABDOMEN OR PELVIS. COMMENT: Quality ID # [id number]: Final reports with documentation of one or more dose reduction techniques (e.g., Automated exposure control, adjustment of the mA and/or kV according to patient size, use of iterative reconstruction technique) TECHNICAL DOCUMENTATION: JOB ID: [id number] [employer]- All Rights Reserved Reading location - IP/workstation name: [email or web address]
[2018-04-15 12:12] LABS: ANISOCYTOSIS 1+; OVALOCYTES SLIGHT; POIKILOCYTOSIS SLIGHT; ROULEAUX SLIGHT
[2018-04-15 12:13] LABS: HYPOCHROMASIA 1+; PLATELET COMMENT ADEQUATE; POLYCHROMASIA SLIGHT
[2018-04-15 12:14] LABS: ALANINE AMINOTRANSFERASE 29 U/L (9-52); ALBUMIN 4.2 g/dL (3.5-5.0); ALKALINE PHOSPHATASE 128 U/L (38-126); ANION GAP 11 (5-19); ASPARTATE AMINO TRANSFERASE 38 U/L (14-36); BILIRUBIN,DIRECT 0.2 mg/dL (0.0-0.4); BILIRUBIN,TOTAL 0.4 mg/dL (0.2-1.3); BLOOD UREA NITROGEN 10 mg/dL (7-20); CARBON DIOXIDE 25 mmol/L (22-30); CHLORIDE 98 mmol/L (98-107); LIPASE 177.7 U/L (23-300); POTASSIUM 4.3 mmol/L (3.6-5.0); SODIUM 134.4 mmol/L (137-145); TOTAL PROTEIN 7.9 g/dL (6.3-8.2)
[2018-04-15] MEDS ORDERED: LIDOCAINE 1% INJ-PF (10 MG/ML) 30 ML SDV INFIL ONE (12:17)
[2018-04-15] MEDS ORDERED: CEFTRIAXONE INJ 1000 MG VIAL IM ONE (12:17)
[2018-04-15] MEDS ORDERED: PROMETHAZINE HCL 25 MG TABLET PO ONE (12:26)
[2018-04-15 12:28] LABS: GLUCOSE 441 mg/dL (75-110)
[2018-04-15] MEDS ORDERED: INSULIN REG, HUMAN 100 UNIT/ML 3 ML VIAL (PYX) SUBCUT ONE (12:40)
[2018-04-15 13:59] VITALS: BP 104/55
[2018-04-16 15:40] LABS: PATH REVIEW PATHOLOGIST REVIEWED
== END 2018-04-15 13:30 | disposition home or self-care (01) ==
LOC: ER 10:42
DX: N12 Tubulo-interstitial nephritis, not specified as acute or chronic (principal); E11.65 Type 2 diabetes mellitus with hyperglycemia; F17.210 Nicotine dependence, cigarettes, uncomplicated
CPT/HCPCS: 99285; 96372; 36415; 83690; 85025; 81025; 80053; 81001; 76380; S0119; J3490; J1815; J0696

== ENCOUNTER 2018-04-15 21:43 | Emergency (ER) | payer SELFPAY ==
[2018-04-16] MEDS ORDERED: OXYCODONE-ACETAMINOPHEN 5-325 MG TABLET PO ONE (00:14)
[2018-04-16] MEDS ORDERED: PROMETHAZINE HCL 25 MG TABLET PO ONE (00:14)
[2018-04-16] MEDS ORDERED: HYDROCODONE/ACETAMINOPHEN 5-325 MG (6 TAB/ER DISP) PO PRN (00:14)
--- NOTE | 2018-04-16 00:16 | ER Document Report ---
HPI - HPI Patient complains to provider of: right flank pain Time Seen by Provider: 04/15/18 23:42 Pain Level: 5 Context: Patient is a 28-year-old female that comes to the emergency department for chief complaint of right flank pain. Patient states that she was seen earlier today, diagnosed with a kidney infection, placed on antibiotics, Pyridium, and Phenergan, she states she filled these medications but after she went home and the pain medicine she received while she was in the emergency department wore off, she started having a lot of pain again. She denies worsening pain than previous, she denies vomiting, she denies fever or chills. She states that she is only here for better symptom management. Past medical history of insulin- dependent diabetes. She states she is using NovoLog at home a sliding scale. - REPRODUCTIVE Reproductive: DENIES: : Past Medical History - General Information source: Patient - Social History Smoking Status: Current Every Day Smoker Smoking Education Provided: Yes - <3 min Frequency of alcohol use: None Drug Abuse: None Lives with: Family Family History: CAD, CVA, DM, Hypertension, Malignancy Endocrine Medical History: Reports: Hx Diabetes Mellitus Type 1 Renal/ Medical History: Denies: Hx Peritoneal Dialysis Past Surgical History: Reports: Hx Section - x2, Hx Tubal Ligation - Immunizations Immunizations up to date: Yes Hx Diphtheria, Pertussis, Tetanus Vaccination: Yes Vertical Provider Document - CONSTITUTIONAL General Appearance: WD/WN, Other - Patient appears minimally uncomfortable but does not appear to be in any severe distress - INFECTION CONTROL TRAVEL OUTSIDE OF THE [place] IN LAST 30 DAYS: No - HEENT HEENT: Atraumatic, Normal ENT Exam, Normocephalic - NECK Neck: Normal Inspection - RESPIRATORY Respiratory: Breath Sounds Normal, No Respiratory Distress - CARDIOVASCULAR Cardiovascular: Regular Rate, Regular Rhythm - GI/ABDOMEN Gastrointestinal: Abdomen Soft, Abdomen Non-Tender - BACK Back: Normal Inspection, CVA Tenderness-Right - MUSCULOSKELETAL/EXTREMETIES Musculoskeletal/Extremeties: MAEW, FROM, Non-Tender - NEURO Level of Consciousness: Awake, Alert, Appropriate - DERM Integumentary: Warm, Dry, No Rash Course - Re-evaluation Re-evalutation: Patient is nontoxic in appearance. Soft benign abdomen. Unremarkable vital signs including no fever or tachycardia. Denies worsening symptoms. Asking for better symptom management. Patient has already received IM Rocephin. Patient declines additional laboratory evaluation including blood chemistry. Patient was given another dose of pain medication, she was given a norco pack to go home with. I discussed medication use, follow-up, and return precautions. Patient and family members at bedside state understanding and agreement. - Vital Signs Vital signs: Temp Pulse Resp BP Pulse Ox 98.8 F 81 16 120/68 98 04/15/18 22:46 04/15/18 22:46 04/15/18 22:46 04/15/18 22:46 04/15/18 22:46 Discharge - Discharge Clinical Impression: Right flank pain Condition: Stable Disposition: HOME, SELF-CARE Additional Instructions: Continue current medication including cephalexin antibiotic, Phenergan for nausea. Take the provided medications for pain if needed. You can take ibuprofen with this, 600 mg every 6 hours. Follow-up with primary care. Return if you worsen including vomiting, fever/chills, worsening pain, or any other concerning or worsening symptoms.
[2018-04-16 00:21] VITALS: BP 118/70
== END 2018-04-16 00:30 | disposition home or self-care (01) ==
LOC: ER 21:43
DX: R10.9 Unspecified abdominal pain (principal); E11.9 Type 2 diabetes mellitus without complications; Z79.4 Long term (current) use of insulin; F17.200 Nicotine dependence, unspecified, uncomplicated
CPT/HCPCS: 99283

== ENCOUNTER 2018-05-06 20:57 | Emergency (ER) | payer SELFPAY ==
--- NOTE | 2018-05-06 22:11 | ER Document Report ---
ED GI/ - General Chief Complaint: Flank Pain Stated Complaint: FLANK PAIN Time Seen by Provider: 05/06/18 22:10 Mode of Arrival: Ambulatory Information source: Patient Notes: HISTORY OF PRESENT ILLNESS: Patient is a 28-year-old female with a past medical history of type 2 diabetes who presents with right-sided flank pain. Of note, patient does report having a history of "a kidney infection" a month ago that was treated with antibiotics, she reports the symptoms are similar but not completely identical. Location: Right lower flank Onset: Sudden earlier today Alleviation: None Provocation: Moving, bending, twisting Quality: Aching Radiation: None Severity: Moderate Timing: Constant History of abdominal surgery: None Associated symptoms: Mild nausea but no vomiting, no fevers or chills, no vaginal bleeding or discharge Last bowel movement: Today and normal Last menstrual period: 2 weeks ago and normal but was "a week early" REVIEW OF SYSTEMS: CONSTITUTIONAL : Denies fever or chills, no sweats. Denies recent illness. EENT: Denies eye, ear, throat, or mouth pain or symptoms. Denies nasal or sinus congestion. CARDIOVASCULAR: Denies chest pain. Denies swelling of the legs. RESPIRATORY: Denies cough, cold, or chest congestion. Denies shortness of breath or difficulty breathing. Denies wheezing. GASTROINTESTINAL: Positive for abdominal pain. Positive for nausea but no vomiting or diarrhea. Denies constipation. GENITOURINARY: Denies difficulty urinating, painful urination, burning, frequency, or blood in urine. FEMALE GENITOURINARY: Denies vaginal bleeding, abnormal or irregular periods. MUSCULOSKELETAL: Denies neck or back pain or joint pain or swelling. SKIN: Denies rash or skin lesions. HEMATOLOGIC : Denies easy bruising or bleeding. LYMPHATIC: Denies swollen, enlarged glands. NEUROLOGICAL: Denies altered mental status or loss of consciousness. Denies headache. Denies weakness or paralysis or loss of use of either side. Denies problems with gait or speech. Denies sensory or motor loss. PSYCHIATRIC: Denies anxiety or stress or depression. All other systems reviewed and negative. PHYSICAL EXAMINATION: GENERAL: Well-appearing, well-nourished and in no acute distress. HEAD: Atraumatic, normocephalic. No scalp deformity, depression, or crepitance. EYES: Pupils are 3 mm and equal/round/reactive to light, extraocular movements i ntact, sclera anicteric, conjunctiva are normal. ENT: Nares patent bilaterally, oropharynx. Moist mucous membranes. No tonsil hypertrophy. NECK: Normal range of motion, supple without lymphadenopathy. LUNGS: Breath sounds present, equal, and clear to auscultation bilaterally. No wheezes, rales, or rhonchi. HEART: Regular rate and rhythm without murmurs, rubs, or gallops. 2+ peripheral pulses. Normal capillary refill. ABDOMEN: Soft without distention, mild tenderness in the right lower flank and mid abdomen. Normoactive bowel sounds. No guarding, no rebound. No masses appreciated. BACK: Normal contour, no midline tenderness. Rectal exam deferred. GENITAL/PELVIC: Deferred. EXTREMITIES: Normal range of motion, no pitting or edema. No cyanosis. NEUROLOGICAL: No focal neurological deficits. Moves all extremities spontaneously and on command. PSYCH: Normal mood, normal affect. No suicidal thoughts/ideations. No homocidal thoughts/ideations. No hallucinations. SKIN: Warm, dry, normal turgor, no rashes or lesions noted. ASSESSMENT AND PLAN: This patient is a 28-year-old female who presents with right-sided flank and abdominal pain. Differential diagnosis includes UTI versus pyelonephritis versus ureterolithiasis versus diabetic ketoacidosis. 1. Will obtain labs, urine, VBG, and reassess. 2. Will give IV fluids with Toradol and Zofran. TRAVEL OUTSIDE OF THE [place] IN LAST 30 DAYS: No - Related Data Allergies/Adverse Reactions: No Known Allergies Allergy (Verified 04/15/18 10:45) Past Medical History - General Information source: Patient - Social History Smoking Status: Never Smoker Chew tobacco use (# tins/day): No Frequency of alcohol use: None Drug Abuse: None Lives with: Family Family History: CAD, CVA, DM, Hypertension, Malignancy Patient has suicidal ideation: No Patient has homicidal ideation: No - Past Medical History Cardiac Medical History: Reports: None Pulmonary Medical History: Reports: None EENT Medical History: Reports: None Neurological Medical History: Reports: None Endocrine Medical History: Reports: Hx Diabetes Mellitus Type 1, Hx Diabetes Mellitus Type 2 Renal/ Medical History: Reports: None. Denies: Hx Peritoneal Dialysis Malignancy Medical History: Reports: None GI Medical History: Reports: None Musculoskeletal Medical History: Reports None Skin Medical History: Reports None Psychiatric Medical History: Reports: None Traumatic Medical History: Reports: None Infectious Medical History: Reports: None Surgical Hx: Negative Past Surgical History: Reports: Hx Section - x2, Hx Tubal Ligation - Immunizations Immunizations up to date: Yes Hx Diphtheria, Pertussis, Tetanus Vaccination: Yes Physical Exam - Vital signs Vitals: Temp Pulse Resp BP Pulse Ox 98.4 F 111 H 18 155/87 H 100 05/06/18 21:04 05/06/18 21:04 05/06/18 21:04 05/06/18 21:04 05/06/18 21:04 Course - Re-evaluation Re-evalutation: 05/07/18 03:32 No evidence of acute diabetic ketoacidosis and blood work, however the patient was given IV fluids as well as 10 units of Regular Insulin and has had improvement of her hyperglycemia. Urinalysis does show evidence of urinary tract infection that is nitrite positive, however there is no evidence to suggest pyelonephritis. Patient will be given oral Levaquin and will be discharged home with return precautions and follow-up. Patient voices both understanding and agreeing with the plan. - Vital Signs Vital signs: Temp Pulse Resp BP Pulse Ox 98.4 F 111 H 18 155/87 H 100 05/06/18 21:04 05/06/18 21:04 05/06/18 21:04 05/06/18 21:04 05/06/18 21:04 - Laboratory Result Diagrams: 05/06/18 21:25 05/06/18 21:25 Laboratory results interpreted by me: 05/06/18 05/06/18 05/06/18 21:20 21:25 21:25 Hgb 8.4 L Hct 27.3 L MCV 62 L MCH 19.1 L MCHC 30.7 L RDW 16.8 H Sodium 134.9 L Creatinine 0.42 L Glucose 472 H* POC Glucose Alkaline Phosphatase 140 H Urine Glucose (UA) >=500 H Urine Blood SMALL H Urine Nitrite POSITIVE H Ur Leukocyte Esterase MODERATE H 05/07/18 03:00 Hgb Hct MCV MCH MCHC RDW Sodium Creatinine Glucose POC Glucose 308 H Alkaline Phosphatase Urine Glucose (UA) Urine Blood Urine Nitrite Ur Leukocyte Esterase Discharge - Discharge Clinical Impression: Hyperglycemia Urinary tract infection Qualifiers: Urinary tract infection type: acute cystitis Hematuria presence: without hematuria Qualified Code(s): N30.00 - Acute cystitis without hematuria Condition: Good Disposition: HOME, SELF-CARE Instructions: Urinary Tract Infection ([facility]), Hyperglycemia ([facility]), Quinolone Antibiotics ([facility]) Additional Instructions: You have been evaluated in the Emergency Department for abdominal pain as well as a urinary tract infection and elevated blood glucose. Please follow-up with your [primary physician] as instructed in 1 week to be rechecked. Take your antibiotics as instructed until they are completed. Return to the Emergency Department if you experience high fevers, worsening pain, the inability or difficulty urinating, or any other concerning symptoms. Prescriptions: Ondansetron [Zofran Odt 4 mg Tablet] 1 - 2 tab PO Q4HP PRN #30 tab.rapdis PRN Reason: Levofloxacin [Levaquin 500 mg Tablet] 500 mg PO DAILY #10 tablet Tramadol HCl [Ultram] 50 mg PO Q6H PRN #30 tablet PRN Reason: For Pain Print Language: Egyptian
[2018-05-06 22:34] LABS: APPEARANCE,URINE CLOUDY; BILIRUBIN,URINE NEGATIVE (NEGATIVE); COLOR,URINE YELLOW; GLUCOSE, URINE >=500 mg/dL (NEGATIVE); KETONES,URINE NEGATIVE (NEGATIVE); LEUKOCYTE ESTERASE,URINE MODERATE (NEGATIVE); NITRITE,URINE POSITIVE (NEGATIVE); PROTEIN,URINE NEGATIVE (NEGATIVE); URINE SPECIFIC GRAVITY 1.032; UROBILINOGEN,URINE NEGATIVE mg/dL (<2.0)
[2018-05-06 22:43] LABS: URINE AMPHETAMINES SCREEN NEGATIVE; URINE BARBITURATES SCREEN NEGATIVE; URINE BENZODIAZEPINES SCREEN NEGATIVE; URINE COCAINE SCREEN NEGATIVE; URINE MARIJUANA (THC) SCREEN NEGATIVE; URINE METHADONE SCREEN NEGATIVE; URINE PHENCYCLIDINE SCREEN NEGATIVE
[2018-05-07] LABS: ABSOLUTE BASOPHILS # (AUTO) 0.1 10^3/uL (0.0-0.2); ABSOLUTE EOSINOPHILS # (AUTO) 0.1 10^3/uL (0.0-0.6); ABSOLUTE LYMPHOCYTES (AUTO) 2.6 10^3/uL (0.5-4.7); ABSOLUTE MONOCYTES (AUTO) 0.5 10^3/uL (0.1-1.4); BASOPHILS % (AUTO) 0.5 % (0-2); HEMATOCRIT 27.3 % (36.0-47.0); HEMOGLOBIN 8.4 g/dL (12.0-15.5); LYMPHOCYTES % (AUTO) 28.3 % (13-45); MEAN CORPUSCULAR HEMOGLOBIN 19.1 pg (27.0-33.4); MEAN CORPUSCULAR HGB CONC 30.7 g/dL (32.0-36.0); MEAN CORPUSCULAR VOLUME 62 fl (80-97); MONOCYTES % (AUTO) 5.4 % (3-13); PLATELET COUNT 389 10^3/uL (150-450); RED BLOOD COUNT 4.37 10^6/uL (3.72-5.28); RED CELL DISTRIBUTION WIDTH 16.8 % (11.5-14.0); SEGMENTED NEUTROPHILS % (AUTO) 64.8 % (42-78); TOTAL CELLS COUNTED % (AUTO) 100 %; WHITE BLOOD COUNT 9.3 10^3/uL (4.0-10.5)
[2018-05-07 00:07] LABS: ALANINE AMINOTRANSFERASE 28 U/L (9-52); ALBUMIN 4.1 g/dL (3.5-5.0); ALKALINE PHOSPHATASE 140 U/L (38-126); ANION GAP 11 (5-19); ASPARTATE AMINO TRANSFERASE 28 U/L (14-36); BILIRUBIN,DIRECT 0.2 mg/dL (0.0-0.4); BILIRUBIN,TOTAL 0.4 mg/dL (0.2-1.3); BLOOD UREA NITROGEN 8 mg/dL (7-20); CALCIUM 9.6 mg/dL (8.4-10.2); CARBON DIOXIDE 26 mmol/L (22-30); CHLORIDE 98 mmol/L (98-107); SODIUM 134.9 mmol/L (137-145); TOTAL PROTEIN 7.4 g/dL (6.3-8.2)
[2018-05-07 00:16] LABS: GLUCOSE 472 mg/dL (75-110)
[2018-05-07 00:32] LABS: ANISOCYTOSIS 1+; STOMATOCYTES 1+
[2018-05-07 00:33] LABS: PLATELET COMMENT ADEQUATE
[2018-05-07] MEDS ORDERED: NORMAL SALINE 1000 ML 1,000 ML IV ONE (00:37)
[2018-05-07] MEDS ORDERED: INSULIN REG, HUMAN 100 UNIT/ML 3 ML VIAL (PYX) IV ONE (00:38)
[2018-05-07 02:13] LABS: VENOUS BLOOD BASE EXCESS 0.9 mmol/L; VENOUS BLOOD HCO3 26.3 mmol/L (20-32); VENOUS BLOOD PCO2 45.3 mmHg (35-63); VENOUS BLOOD PH 7.38 (7.30-7.42)
[2018-05-07] MEDS ORDERED: LEVOFLOXACIN 500 MG TABLET PO ONE (03:31)
[2018-05-07] MEDS ORDERED: TRAMADOL HCL 50 MG TABLET PO ONE (03:32)
[2018-05-07 04:16] VITALS: BP 146/70
== END 2018-05-07 04:16 | disposition home or self-care (01) ==
LOC: ER 20:57
DX: N30.00 Acute cystitis without hematuria (principal); E11.65 Type 2 diabetes mellitus with hyperglycemia; R10.9 Unspecified abdominal pain
CPT/HCPCS: 99284; 96360; 36415; 82962; 85025; 81025; 80053; 81001; 80307; 82803; J1815; J7030

== ENCOUNTER 2018-06-11 08:36 | Emergency (ER) | payer SELFPAY ==
[2018-06-11] MEDS ORDERED: IBUPROFEN 400 MG TABLET PO ONE (09:29)
[2018-06-11] MEDS ORDERED: PHENAZOPYRIDINE HCL 100 MG TABLET PO ONE (09:29)
--- NOTE | 2018-06-11 09:30 | ER Document Report ---
ED Medical Screen (RME) - General Chief Complaint: Vaginal Pain Stated Complaint: VAGINAL PAIN Time Seen by Provider: 06/11/18 09:23 Notes: 28-year-old female patient with emergency part for evaluation of dysuria, multiple abscesses, pelvic pain, pain around the labia, abscess under the left arm, abscesses on the bilateral thighs. Patient is a diabetic. I have greeted and performed a rapid initial assessment of this patient. A comprehensive ED assessment and evaluation of the patient, analysis of test results and completion of the medical decision making process will be conducted by additional ED providers. TRAVEL OUTSIDE OF THE [place] IN LAST 30 DAYS: No - Related Data Allergies/Adverse Reactions: No Known Allergies Allergy (Verified 06/11/18 08:37) Past Medical History - Social History Family history: Reviewed & Not Pertinent Endocrine Medical History: Reports: Hx Diabetes Mellitus Type 1, Hx Diabetes Mellitus Type 2 Renal/ Medical History: Denies: Hx Peritoneal Dialysis Past Surgical History: Reports: Hx Section - x2, Hx Tubal Ligation - Immunizations Immunizations up to date: Yes Hx Diphtheria, Pertussis, Tetanus Vaccination: Yes Physical Exam - Vital signs Vitals: Temp Pulse Resp BP Pulse Ox 99.2 F 99 18 138/79 H 100 06/11/18 09:20 06/11/18 09:20 06/11/18 09:20 06/11/18 09:20 06/11/18 09:20 Course - Vital Signs Vital signs: Temp Pulse Resp BP Pulse Ox 99.2 F 99 18 138/79 H 100 06/11/18 09:20 06/11/18 09:20 06/11/18 09:20 06/11/18 09:20 06/11/18 09:20
[2018-06-11] MEDS ORDERED: NORMAL SALINE 1000 ML 1,000 ML IV ONE (09:43)
[2018-06-11 09:54] LABS: APPEARANCE,URINE CLEAR; BILIRUBIN,URINE NEGATIVE (NEGATIVE); COLOR,URINE YELLOW; GLUCOSE, URINE >=500 mg/dL (NEGATIVE); KETONES,URINE NEGATIVE (NEGATIVE); LEUKOCYTE ESTERASE,URINE NEGATIVE (NEGATIVE); NITRITE,URINE POSITIVE (NEGATIVE); PROTEIN,URINE 30 mg/dL (NEGATIVE); URINE SPECIFIC GRAVITY 1.033; UROBILINOGEN,URINE NEGATIVE mg/dL (<2.0)
--- NOTE | 2018-06-11 10:18 | ER Document Report ---
Addendum entered and electronically signed by PEACE VASQUEZ FNP 06/19/18 18:21: Procedures - Incision and Drainage Right medial thigh Type: Simple, Multiple - see diagram Anesthetic type: 1% Lidocaine w/epi mL's of anesthetic: 3 Blade size: 11 I&D procedure: Chlorprep applied, Sterile dressing applied Incision Method: Incision made by scalpel Amount/type of drainage: purulent Adult Front & Back picture: 1 - medial thigh 2 - Left axilla 3 - Left thigh Original Note: ED General - General Chief Complaint: Vaginal Pain Stated Complaint: VAGINAL PAIN Time Seen by Provider: 06/11/18 09:23 Notes: Patient is a 28-year-old female who presents the emergency department with vaginal pain. She also complains of overall body pain. She states that she has had her symptoms since she was last seen here in the emergency department and diagnosed with a urinary tract infection, which was back in April. She admits to having some white vaginal discharge and states that it is itchy. She also states that she has been burning also. She has a past medical history of gestational diabetes, which led to diabetes and she is supposed to be taking 10 units of NovoLog every day, but states that she does not have insurance she only takes it when needed. She also has multiple "bumps" all over her body. She has them on her left, thigh left lower leg, and one in her left axilla area. She does not have insurance and has not seen her primary care provider in regards to this issue. She denies any sexual contacts. TRAVEL OUTSIDE OF THE [place] IN LAST 30 DAYS: No - Related Data Allergies/Adverse Reactions: No Known Allergies Allergy (Verified 06/11/18 08:37) Past Medical History - Social History Smoking Status: Current Every Day Smoker Family History: CAD, CVA, DM, Hypertension, Malignancy Patient has suicidal ideation: No Patient has homicidal ideation: No Endocrine Medical History: Reports: Hx Diabetes Mellitus Type 1, Hx Diabetes Mellitus Type 2 Renal/ Medical History: Denies: Hx Peritoneal Dialysis Past Surgical History: Reports: Hx Section - x2, Hx Tubal Ligation - Immunizations Immunizations up to date: Yes Hx Diphtheria, Pertussis, Tetanus Vaccination: Yes Review of Systems - Review of Systems Notes: REVIEW OF SYSTEMS: CONSTITUTIONAL : Denies recent illness. Denies recent unintentional weight loss. Denies fever, chills, or sweats. EENT: Denies eye, ear, throat, or mouth pain, discharge, or symptoms. Denies nasal or sinus congestion. CARDIOVASCULAR: Denies chest pain. RESPIRATORY: Denies shortness of breath, cough, congestion, difficulty breathing, or wheezing. GASTROINTESTINAL: Denies nausea, vomiting, and diarrhea. Denies abdominal pain. Denies constipation. GENITOURINARY: Denies difficulty urinating, burning, blood in urine, urgency or frequency. MUSCULOSKELETAL: Denies neck and back pain. Denies joint pain or swelling. SKIN: See HPI HEMATOLOGIC : Denies easy bruising or bleeding. LYMPHATIC: Denies swollen, painful, enlarged glands. NEUROLOGICAL: Denies no numbness or tingling denies weakness. Denies headache. Denies altered mental status. Denies alteration in speech. PSYCHIATRIC: Denies stress, anxiety, alteration in sleep patterns, or depression. HEALTH CARE SANITARY TECHNICIAN: See HPI All other systems reviewed and negative. Physical Exam - Vital signs Vitals: Temp Pulse BP Pulse Ox 99.2 F 97 138/79 H 99 06/11/18 09:18 06/11/18 09:18 06/11/18 09:18 06/11/18 09:18 - Notes Notes: PHYSICAL EXAMINATION: GENERAL: Appears well, healthy, well-nourished, no acute distress. HEAD: Normocephalic, atraumatic. EYES: PERRL, conjunctiva normal, all extraocular movements intact, sclera nonicteric ENT: Moist mucous membranes. NECK: Supple, no noticeable swelling, redness, rash. Normal range of motion. LUNGS: Equal breath sounds bilaterally and clear to auscultation. No wheezes rales or rhonchi. CARDIOVASCULAR: S1-S2, regular rate, regular rhythm. Radial pulses 2+, normal. ABDOMEN: Normoactive bowel sounds. Soft, nontender, no guarding, no rebound tenderness, and no masses palpated. EXTREMITIES: Normal strength and range of motion, no pitting or edema. No cyanosis. NEUROLOGICAL: Moves all extremities upon command. Strength 5/5 in all extremities. PSYCH: Normal mood, normal affect. SKIN: Warm, dry. Multiple abscesses noted to axilla and bilateral thighs. PELVIC: Discharge noted. Raw skin noted to vaginal area and groin area. Course - Re-evaluation Re-evalutation: 06/11/18 11:15 KERRY Mari accompanied me during the patient's pelvic exam. A wet mount will be sent to see if the patient has any yeast or bacterial vaginosis.The patient has a mild leukocytosis of 10,700. Her urine is negative for leukocytes, therefore ruling out a urinary tract infection. The patient did not have any cervical motion tenderness on exam, ruling out pelvic inflammatory disease. Patient's blood gas is normal. Her blood sugar came down to 411. She will be given 12 units of regular insulin to help bring her blood sugar down and her sugar will be reassessed after giving insulin. 06/11/18 11:45 The patient has an abscesses noted to her left axilla area x2. Abscesses noted to bilateral buttock areas. Only one was drained and a small amount of purulent fluid was expressed. She has an abscess noted to her left anterior lateral thigh. About 3 mL's of purulent drainage was drained from that area. Also her right anterior medial thigh an abscess was drained from that area. All ab scesses were drained. She will be started on doxycycline and will be on it for the next week. While treating the patient's abscesses, I had a long conversation with the patient about the importance of keeping her blood sugar under control. She states that she states she does not have insurance, she finds it difficult. I have given her prescription coupon cards to help with her cost. Verbal discharge instructions were given to the patient. They verbalized understanding. They are stable for discharge. - Vital Signs Vital signs: Temp Pulse Resp BP Pulse Ox 98.3 F 92 14 129/86 H 100 06/11/18 13:17 06/11/18 13:17 06/11/18 13:17 06/11/18 13:17 06/11/18 13:17 - Laboratory Result Diagrams: 06/11/18 10:26 06/11/18 10:26 Laboratory results interpreted by me: 06/11/18 06/11/18 06/11/18 09:30 09:38 10:26 WBC 10.7 H Hgb 9.0 L Hct 29.4 L MCV 60 L MCH 18.5 L MCHC 30.8 L RDW 17.3 H Sodium Glucose POC Glucose 464 H* Calcium Alkaline Phosphatase Urine Protein 30 H Urine Glucose (UA) >=500 H Urine Nitrite POSITIVE H 06/11/18 06/11/18 06/11/18 10:26 11:24 13:15 WBC Hgb Hct MCV MCH MCHC RDW Sodium 135.6 L Glucose 454 H* POC Glucose 411 H* 355 H Calcium 10.4 H Alkaline Phosphatase 178 H Urine Protein Urine Glucose (UA) Urine Nitrite Discharge - Discharge Clinical Impression: Vaginal itching, Abscess, Yeast infection Condition: Stable Disposition: HOME, SELF-CARE Instructions: Abscess ([facility]), Post Incision and Drainage Additional Instructions: You were seen today in the emergency department for vaginal itching and multiple abscesses. The abscesses were drained here in the emergency department. You have been started on 2 antibiotics. Flagyl, as a medication to help with your vaginal itching. Doxycycline, is a medication to help with the abscesses on your body. Make sure you take all your medication as prescribed. Do not drink alcohol while you are taking Flagyl. You have also been given fluconazole, medication to help with your yeast infection. You need to take another dose in the next 3 days. Please establish a primary care provider to help with your insulin. [facility] for [facility]. You have also been provided prescription she plans to help with the cost of your medication. If you develop a fever greater than 100.4 F, have worsening symptoms, or have any symptoms that are worrisome to you, please return to the emergency department. Prescriptions: Doxycycline Hyclate 100 mg PO BID #20 capsule Fluconazole [Diflucan] 150 mg PO ONCE PRN #1 tablet PRN Reason: Metronidazole [Flagyl 500 mg Tablet] 500 mg PO Q6H #40 tablet
[2018-06-11 10:40] LABS: VENOUS BLOOD BASE EXCESS -0.5 mmol/L; VENOUS BLOOD HCO3 24.8 mmol/L (20-32); VENOUS BLOOD PCO2 43.4 mmHg (35-63); VENOUS BLOOD PH 7.37 (7.30-7.42)
[2018-06-11 10:46] LABS: BACTERIA (WET MOUNT) 3+ BACTERIA SEEN; EPITHELIALS (WET MOUNT) 4+ EPITHELIALS SEEN; RBCS (WET MOUNT) NO RBCS SEEN; T.VAGINALIS (WET MOUNT) TRICHOMONAS SEEN; WBCS (WET MOUNT) 3+ WBCS SEEN; YEAST (WET MOUNT) YEAST SEEN
[2018-06-11 10:47] LABS: ABSOLUTE EOSINOPHILS # (AUTO) 0.1 10^3/uL (0.0-0.6); ABSOLUTE LYMPHOCYTES (AUTO) 2.3 10^3/uL (0.5-4.7); ABSOLUTE MONOCYTES (AUTO) 0.7 10^3/uL (0.1-1.4); ABSOLUTE NEUT (AUTO) 7.6 10^3/uL (1.7-8.2); BASOPHILS % (AUTO) 0.3 % (0-2); HEMATOCRIT 29.4 % (36.0-47.0); LYMPHOCYTES % (AUTO) 21.7 % (13-45); MEAN CORPUSCULAR HEMOGLOBIN 18.5 pg (27.0-33.4); MEAN CORPUSCULAR HGB CONC 30.8 g/dL (32.0-36.0); MEAN CORPUSCULAR VOLUME 60 fl (80-97); MONOCYTES % (AUTO) 6.4 % (3-13); PLATELET COUNT 401 10^3/uL (150-450); RED BLOOD COUNT 4.89 10^6/uL (3.72-5.28); RED CELL DISTRIBUTION WIDTH 17.3 % (11.5-14.0); SEGMENTED NEUTROPHILS % (AUTO) 70.6 % (42-78); TOTAL CELLS COUNTED % (AUTO) 100 %; WHITE BLOOD COUNT 10.7 10^3/uL (4.0-10.5)
[2018-06-11] MEDS ORDERED: LIDOCAINE 1%/EPINEPHRINE INJ 20 ML VIAL INJ ONE (10:48)
[2018-06-11 11:11] LABS: HYPOCHROMASIA 3+
[2018-06-11 11:12] LABS: ANISOCYTOSIS 1+; PLATELET COMMENT ADEQUATE
[2018-06-11 11:18] LABS: ALANINE AMINOTRANSFERASE 17 U/L (9-52); ALBUMIN 4.3 g/dL (3.5-5.0); ALKALINE PHOSPHATASE 178 U/L (38-126); ANION GAP 11 (5-19); ASPARTATE AMINO TRANSFERASE 20 U/L (14-36); BILIRUBIN,TOTAL 0.5 mg/dL (0.2-1.3); BLOOD UREA NITROGEN 8 mg/dL (7-20); CALCIUM 10.4 mg/dL (8.4-10.2); CARBON DIOXIDE 26 mmol/L (22-30); CHLORIDE 99 mmol/L (98-107); POTASSIUM 4.1 mmol/L (3.6-5.0); SODIUM 135.6 mmol/L (137-145)
[2018-06-11 11:25] LABS: GLUCOSE 454 mg/dL (75-110)
[2018-06-11 11:26] LABS: CHLAM PCR NOT DETECTED (NOT DETECT); GON PCR NOT DETECTED (NOT DETECT)
[2018-06-11] MEDS ORDERED: INSULIN REG, HUMAN 100 UNIT/ML 3 ML VIAL (PYX) SUBCUT ONE (12:15)
[2018-06-11] MEDS ORDERED: FLUCONAZOLE 100 MG TABLET PO ONE (12:19)
[2018-06-11 13:18] VITALS: BP 129/86
== END 2018-06-11 13:24 | disposition home or self-care (01) ==
LOC: ER 08:36
DX: L02.412 Cutaneous abscess of left axilla (principal); L02.416 Cutaneous abscess of left lower limb; L02.415 Cutaneous abscess of right lower limb; B37.9 Candidiasis, unspecified; R10.2 Pelvic and perineal pain; N89.8 Other specified noninflammatory disorders of vagina; L29.9 Pruritus, unspecified; E11.9 Type 2 diabetes mellitus without complications; T38.3X6A Underdosing of insulin and oral hypoglycemic [antidiabetic] drugs, initial encounter; Z91.120 Patient's intentional underdosing of medication regimen due to financial hardship; Z91.14 Patient's other noncompliance with medication regimen; F17.200 Nicotine dependence, unspecified, uncomplicated; Z87.440 Personal history of urinary (tract) infections; L02.31 Cutaneous abscess of buttock
CPT/HCPCS: 10061; 99283; 96360; 36415; 87210; 82962; 85025; 81025; 80053; 81001; 87491; 87591; 82803; J3490 ×3; J1815; J7030

== ENCOUNTER 2018-06-30 16:42 | Emergency (ER) | payer SELFPAY ==
[2018-06-30] MEDS ORDERED: ACETAMINOPHEN 325 MG TABLET PO ONE (17:32)
--- NOTE | 2018-06-30 17:32 | ER Document Report ---
ED Medical Screen (RME) - General Stated Complaint: SHORTNESS OF BREATH Time Seen by Provider: 06/30/18 17:30 Mode of Arrival: Ambulatory Information source: Patient Notes: PT PRESENTS WITH LEFT SIDE PAIN, SOB, PAIN WITH VOID, REPORTS VOMITING YESTERDAY, DENIES FEVER. HISTORY OF DIABETES, REPORTS GLUCOSE USUALLY STAYS IN THE HIGH 400-500s. Takes NOVULOG. FEVER IN PIVOT OF 101. TYLENOL ORDERED I have greeted and performed a rapid initial assessment of this patient. A comprehensive ED assessment and evaluation of the patient, analysis of test results and completion of the medical decision making process will be conducted by additional ED providers. TRAVEL OUTSIDE OF THE [place] IN LAST 30 DAYS: No - Related Data Allergies/Adverse Reactions: No Known Allergies Allergy (Verified 06/30/18 17:30) Past Medical History - Social History Family history: Reviewed & Not Pertinent Endocrine Medical History: Reports: Hx Diabetes Mellitus Type 1, Hx Diabetes Mellitus Type 2 Renal/ Medical History: Denies: Hx Peritoneal Dialysis Past Surgical History: Reports: Hx Section - x2, Hx Tubal Ligation - Immunizations Immunizations up to date: Yes Hx Diphtheria, Pertussis, Tetanus Vaccination: Yes Physical Exam - Vital signs Vitals: Temp Pulse Resp BP Pulse Ox 101 F H 110 H 20 150/93 H 100 06/30/18 17:32 06/30/18 17:32 06/30/18 17:32 06/30/18 17:32 06/30/18 17:32 Course - Vital Signs Vital signs: Temp Pulse Resp BP Pulse Ox 101 F H 110 H 20 150/93 H 100 06/30/18 17:32 06/30/18 17:32 06/30/18 17:32 06/30/18 17:32 06/30/18 17:32 - Laboratory Laboratory results interpreted by me: 06/30/18 17:25 Urine Glucose (UA) >=500 H Urine Blood SMALL H Ur Leukocyte Esterase LARGE H
[2018-06-30 18:00] LABS: APPEARANCE,URINE SLIGHTLY-CLOUDY; BILIRUBIN,URINE NEGATIVE (NEGATIVE); COLOR,URINE YELLOW; GLUCOSE, URINE >=500 mg/dL (NEGATIVE); KETONES,URINE NEGATIVE (NEGATIVE); LEUKOCYTE ESTERASE,URINE LARGE (NEGATIVE); NITRITE,URINE NEGATIVE (NEGATIVE); PROTEIN,URINE NEGATIVE (NEGATIVE); URINE SPECIFIC GRAVITY 1.024; UROBILINOGEN,URINE NEGATIVE mg/dL (<2.0)
[2018-06-30] MEDS ORDERED: NORMAL SALINE 1000 ML 1,000 ML IV ONE (19:22)
[2018-06-30 20:14] LABS: ABSOLUTE BASOPHILS # (AUTO) 0.1 10^3/uL (0.0-0.2); ABSOLUTE EOSINOPHILS # (AUTO) 0.1 10^3/uL (0.0-0.6); ABSOLUTE LYMPHOCYTES (AUTO) 2.7 10^3/uL (0.5-4.7); ABSOLUTE MONOCYTES (AUTO) 0.4 10^3/uL (0.1-1.4); BASOPHILS % (AUTO) 0.7 % (0-2); EOSINOPHILS % (AUTO) 0.8 % (0-6); HEMATOCRIT 27.9 % (36.0-47.0); HEMOGLOBIN 8.4 g/dL (12.0-15.5); MEAN CORPUSCULAR HEMOGLOBIN 18.1 pg (27.0-33.4); MEAN CORPUSCULAR HGB CONC 30.3 g/dL (32.0-36.0); MONOCYTES % (AUTO) 4.8 % (3-13); PLATELET COUNT 392 10^3/uL (150-450); RED BLOOD COUNT 4.68 10^6/uL (3.72-5.28); RED CELL DISTRIBUTION WIDTH 17.4 % (11.5-14.0); SEGMENTED NEUTROPHILS % (AUTO) 64.7 % (42-78); TOTAL CELLS COUNTED % (AUTO) 100 %; WHITE BLOOD COUNT 9.2 10^3/uL (4.0-10.5)
[2018-06-30 20:19] LABS: ALANINE AMINOTRANSFERASE 47 U/L (9-52); ALBUMIN 3.9 g/dL (3.5-5.0); ALKALINE PHOSPHATASE 113 U/L (38-126); ANION GAP 9 (5-19); ASPARTATE AMINO TRANSFERASE 39 U/L (14-36); BILIRUBIN,DIRECT 0.1 mg/dL (0.0-0.4); BILIRUBIN,TOTAL 0.4 mg/dL (0.2-1.3); BLOOD UREA NITROGEN 7 mg/dL (7-20); CALCIUM 10.1 mg/dL (8.4-10.2); CARBON DIOXIDE 26 mmol/L (22-30); CHLORIDE 99 mmol/L (98-107); POTASSIUM 4.2 mmol/L (3.6-5.0); SODIUM 134.2 mmol/L (137-145); TOTAL PROTEIN 7.6 g/dL (6.3-8.2)
[2018-06-30 20:33] LABS: GLUCOSE 426 mg/dL (75-110)
[2018-06-30 20:36] LABS: MEAN CORPUSCULAR VOLUME 60 fl (80-97)
[2018-06-30 20:37] LABS: ANISOCYTOSIS 2+; HYPOCHROMASIA 3+; POLYCHROMASIA SLIGHT; ROULEAUX SLIGHT; TARGET CELLS 1+
[2018-06-30 20:38] LABS: PLATELET COMMENT ADEQUATE
[2018-06-30] MEDS ORDERED: CEFTRIAXONE INJ 1000 MG VIAL IV ONE (21:03)
[2018-06-30] MEDS ORDERED: INSULIN REG, HUMAN 100 UNIT/ML 3 ML VIAL (PYX) SUBCUT ONE (21:04)
--- NOTE | 2018-06-30 21:25 | ER Document Report ---
ED General - General Chief Complaint: Abdominal Pain Stated Complaint: SHORTNESS OF BREATH Time Seen by Provider: 06/30/18 17:30 Mode of Arrival: Ambulatory Notes: Patient is a 28-year old female with a past medical history of insulin-dependent type 2 diabetes with poor glycemic control who presents with 2 days of left flank pain, pain with urination and urinary frequency. Patient states that she has not had fevers at home while she was noted to have a fever in triage. Patient describes the pain in her left flank as being a constant, throbbing, aching discomfort. Nothing seems to improve or worsen her pain. States this feels exactly similar to when she had a kidney infection in April 2018. She has had nausea but no vomiting. Does not have a primary care doctor. Denies focal abdominal pain, syncope or confusion. TRAVEL OUTSIDE OF THE [place] IN LAST 30 DAYS: No - Related Data Allergies/Adverse Reactions: No Known Allergies Allergy (Verified 06/30/18 17:30) Past Medical History - General Information source: Patient - Social History Smoking Status: Never Smoker Frequency of alcohol use: None Drug Abuse: None Lives with: Spouse/Significant other Family History: CAD, CVA, DM, Hypertension, Malignancy Endocrine Medical History: Reports: Hx Diabetes Mellitus Type 1, Hx Diabetes Mellitus Type 2 Renal/ Medical History: Denies: Hx Peritoneal Dialysis Past Surgical History: Reports: Hx Section - x2, Hx Tubal Ligation - Immunizations Immunizations up to date: Yes Hx Diphtheria, Pertussis, Tetanus Vaccination: Yes Review of Systems - Review of Systems Notes: Constitutional: Negative for fever. HENT: Negative for sore throat. Eyes: Negative for visual changes. Cardiovascular: Negative for chest pain. Respiratory: Negative for shortness of breath. Gastrointestinal: Positive for left flank pain, nausea Genitourinary: Positive for dysuria. Musculoskeletal: Negative for back pain. Skin: Negative for rash. Neurological: Negative for headaches, weakness or numbness. 10 point ROS negative except as marked above and in HPI. Physical Exam - Vital signs Vitals: Temp Pulse Resp BP Pulse Ox 101 F H 110 H 20 150/93 H 100 06/30/18 17:32 06/30/18 17:32 06/30/18 17:32 06/30/18 17:32 06/30/18 17:32 Interpretation: Hypertensive, Tachycardic, Febrile Notes: PHYSICAL EXAMINATION: GENERAL: Well-appearing, well-nourished and in no acute distress. HEAD: Atraumatic, normocephalic. EYES: Pupils equal round and reactive to light, extraocular movements intact, sclera anicteric, conjunctiva are normal. ENT: nares patent, oropharynx clear without exudates. Moderately dry mucous membranes. NECK: Normal range of motion, supple without lymphadenopathy LUNGS: Breath sounds clear to auscultation bilaterally and equal. No wheezes rales or rhonchi. HEART: Regular rate and rhythm without murmurs ABDOMEN: Soft, nontender, normoactive bowel sounds. No guarding, no rebound. No masses appreciated. Left CVA tenderness EXTREMITIES: Normal range of motion, no pitting or edema. No cyanosis. NEUROLOGICAL: No focal neurological deficits. Moves all extremities spo ntaneously and on command. PSYCH: Normal mood, normal affect. SKIN: Warm, Dry, normal turgor, no rashes or lesions noted. Course - Re-evaluation Re-evalutation: 06/30/18 21:22 Presentation is most consistent with acute pyelonephritis. Laboratories do demonstrate a large amount of white blood cells in the urine as well as bacter ia. Patient has had constitutional symptoms at home as well as a fever. CVA tenderness is present on exam. The remainder laboratories are relatively unremarkable without evidence of renal dysfunction but do show chronic hyperglycemia without evidence of DKA or HHS. I have added glipizide to the patient's home diabetic regimen. I do not suspect an acute appendicitis, biliary pathology, pancreatitis, intra-abdominal abscess, or tubo-ovarian abscess based on history and examination. Patient has been given a dose of IV ceftriaxone and a liter of fluids. Patient is able to tolerate oral intake without difficulty. Will be discharged home on 7 day course of cephalexin. A urine culture has been sent. At this time will discharge with return precautions and follow-up recommendations. Verbal discharge instructions given a the bedside and opportunity for questions given. Medication warnings reviewed. Patient is in agreement with this plan and has verbalized understanding of return precautions and the need for primary care follow-up in the next 24-72 hours. - Vital Signs Vital signs: Temp Pulse Resp BP Pulse Ox 98.5 F 86 18 126/76 H 100 06/30/18 22:28 06/30/18 22:28 06/30/18 22:28 06/30/18 22:28 06/30/18 22:28 - Laboratory Result Diagrams: 06/30/18 19:35 06/30/18 19:35 Laboratory results interpreted by me: 06/30/18 06/30/18 06/30/18 17:25 19:35 19:35 Hgb 8.4 L Hct 27.9 L MCV 60 L MCH 18.1 L MCHC 30.3 L RDW 17.4 H Sodium 134.2 L Creatinine 0.45 L Glucose 426 H* POC Glucose AST 39 H Urine Glucose (UA) >=500 H Urine Blood SMALL H Ur Leukocyte Esterase LARGE H 06/30/18 06/30/18 20:20 22:27 Hgb Hct MCV MCH MCHC RDW Sodium Creatinine Glucose POC Glucose 397 H 365 H AST Urine Glucose (UA) Urine Blood Ur Leukocyte Esterase Discharge - Discharge Clinical Impression: Pyelonephritis, Left flank pain Hyperglycemia due to type 2 diabetes mellitus Qualifiers: Diabetes mellitus halfway insulin use: with terminal carman use Qualified Code(s): E11.65 - Type 2 diabetes mellitus with hyperglycemia Condition: Good Disposition: HOME, SELF-CARE Additional Instructions: You have been diagnosed with a condition called pyelonephritis which is an infection involving your kidneys and bladder. You have been given a dose of antibiotics here in the emergency department to help begin to treat this infection. Your also being sent home on antibiotics. Please start taking these later on today when you fill the prescription. Complete the course even if you feel better. Please return if you have persistent vomiting, pass out, have worsening pain, become unable to tolerate fluids, or have any other symptoms that are concerning to you. Please follow-up with your primary care physician i n the next 24-48 hours. You need to followup urgently with your primary care doctor as your blood sugars were dangerously high today. You did not have any evidence of a dangerous condition associated with these blood sugars at this time. However, it is very important that you get your blood sugars under control. Please take all of your medications exactly as directed. You should avoid foods that are high in carbohydrates and sugary foods. Losing weight will also help to better control your blood sugars. Please return to emergency department immediately if you develop weakness, persistent vomiting, confusion, or any other symptoms that are concerning to you. Prescriptions: Cephalexin Monohydrate [Keflex 500 mg Capsule] 500 mg PO Q6H 7 Days capsule Fluconazole [Diflucan] 200 mg PO DAILY #1 tablet Glipizide [Glipizide Xl] 10 mg PO DAILY #30 tab.[id number]
[2018-06-30 22:29] VITALS: BP 126/76
[2018-07-01 12:10] LABS: PATH REVIEW PATHOLOGIST REVIEWED
== END 2018-06-30 22:29 | disposition home or self-care (01) ==
LOC: ER 16:42
DX: N12 Tubulo-interstitial nephritis, not specified as acute or chronic (principal); E11.65 Type 2 diabetes mellitus with hyperglycemia; R10.9 Unspecified abdominal pain; R06.02 Shortness of breath; R11.0 Nausea; Z98.51 Tubal ligation status; Z79.4 Long term (current) use of insulin
CPT/HCPCS: 99284; 96361; 96365; 36415; 87086; 82962; 84703; 85025; 87088; 80053; 81001; 87186; J1815; J0696; J7030

== ENCOUNTER 2018-07-21 11:58 | Emergency (ER) | payer SELFPAY ==
--- NOTE | 2018-07-21 12:52 | ER Document Report ---
ED Medical Screen (RME) - General Chief Complaint: Pain With Urination Stated Complaint: DIZZY/SIDE PAIN/URINARY ISSUE Time Seen by Provider: 07/21/18 12:45 Mode of Arrival: Ambulatory Information source: Patient TRAVEL OUTSIDE OF THE [place] IN LAST 30 DAYS: No - HPI Patient complains to provider of: Left flank pain Notes: 07/21/18 12:50 Patient is here with complaints of left flank pain. The patient was recently seen on 30 June and diagnosed with left pyelonephritis. Urine culture grew Klebsiella pneumoniae, she was placed on Keflex. According to the culture sensitivity, this would have been an appropriate antibiotic. She states that she finished her antibiotics and was feeling fine until the last 24 hours when she started having left flank pain and urinary symptoms again. She complains of nausea, but denies any vomiting or diarrhea. She states that she thinks she had a fever at home. Physical exam: Patient is nontoxic-appearing, no distress. Left CVA tenderness to percussion. Plan: CBC, CMP, lipase, urine, urine , urine culture. An initial examination was made on the patient as part of the triage process, and it was determined a more comprehensive evaluation was necessary. Initial labs were ordered and patient was transferred to another provider in the ED who assumed care and finished evaluation and plan. - Related Data Allergies/Adverse Reactions: No Known Allergies Allergy (Verified 07/21/18 12:00) Past Medical History - Social History Frequency of alcohol use: None Drug Abuse: None Family history: Reviewed & Not Pertinent Endocrine Medical History: Reports: Hx Diabetes Mellitus Type 1, Hx Diabetes Mellitus Type 2 Renal/ Medical History: Denies: Hx Peritoneal Dialysis Past Surgical History: Reports: Hx Section - x2, Hx Tubal Ligation - Immunizations Immunizations up to date: Yes Hx Diphtheria, Pertussis, Tetanus Vaccination: Yes Physical Exam - Vital signs Vitals: Temp Pulse Resp BP Pulse Ox 98.4 F 92 14 131/79 H 97 07/21/18 12:13 07/21/18 12:13 07/21/18 12:13 07/21/18 12:13 07/21/18 12:13 Course - Vital Signs Vital signs: Temp Pulse Resp BP Pulse Ox 98.4 F 92 14 131/79 H 97 07/21/18 12:13 07/21/18 12:13 07/21/18 12:13 07/21/18 12:13 07/21/18 12:13
[2018-07-21 13:21] LABS: ABSOLUTE EOSINOPHILS # (AUTO) 0.1 10^3/uL (0.0-0.6); ABSOLUTE LYMPHOCYTES (AUTO) 2.1 10^3/uL (0.5-4.7); ABSOLUTE MONOCYTES (AUTO) 0.4 10^3/uL (0.1-1.4); ABSOLUTE NEUT (AUTO) 4.1 10^3/uL (1.7-8.2); BASOPHILS % (AUTO) 0.7 % (0-2); EOSINOPHILS % (AUTO) 1.3 % (0-6); HEMATOCRIT 26.9 % (36.0-47.0); MEAN CORPUSCULAR HGB CONC 29.9 g/dL (32.0-36.0); MEAN CORPUSCULAR VOLUME 60 fl (80-97); MONOCYTES % (AUTO) 6.3 % (3-13); PLATELET COUNT 509 10^3/uL (150-450); RED BLOOD COUNT 4.46 10^6/uL (3.72-5.28); RED CELL DISTRIBUTION WIDTH 18.3 % (11.5-14.0); SEGMENTED NEUTROPHILS % (AUTO) 60.7 % (42-78); TOTAL CELLS COUNTED % (AUTO) 100 %; WHITE BLOOD COUNT 6.8 10^3/uL (4.0-10.5)
[2018-07-21 13:22] LABS: APPEARANCE,URINE SLIGHTLY-CLOUDY; BILIRUBIN,URINE NEGATIVE (NEGATIVE); COLOR,URINE YELLOW; GLUCOSE, URINE >=500 mg/dL (NEGATIVE); KETONES,URINE NEGATIVE (NEGATIVE); LEUKOCYTE ESTERASE,URINE TRACE (NEGATIVE); NITRITE,URINE NEGATIVE (NEGATIVE); PROTEIN,URINE NEGATIVE (NEGATIVE); UROBILINOGEN,URINE NEGATIVE mg/dL (<2.0)
[2018-07-21 13:34] LABS: ALANINE AMINOTRANSFERASE 27 U/L (9-52); ALBUMIN 4.1 g/dL (3.5-5.0); ALKALINE PHOSPHATASE 111 U/L (38-126); ANION GAP 10 (5-19); ASPARTATE AMINO TRANSFERASE 31 U/L (14-36); BILIRUBIN,DIRECT 0.2 mg/dL (0.0-0.4); BILIRUBIN,TOTAL 0.5 mg/dL (0.2-1.3); BLOOD UREA NITROGEN 3 mg/dL (7-20); CALCIUM 10.3 mg/dL (8.4-10.2); CARBON DIOXIDE 23 mmol/L (22-30); CHLORIDE 102 mmol/L (98-107); LIPASE 162.7 U/L (23-300); POTASSIUM 4.1 mmol/L (3.6-5.0); SODIUM 135.2 mmol/L (137-145); TOTAL PROTEIN 7.6 g/dL (6.3-8.2)
[2018-07-21 13:46] LABS: GLUCOSE 570 mg/dL (75-110)
[2018-07-21] MEDS ORDERED: NORMAL SALINE 1000 ML 2,000 ML IV ONE (13:48)
[2018-07-21 14:01] LABS: ANISOCYTOSIS 1+; HYPOCHROMASIA 2+; OVALOCYTES SLIGHT; POIKILOCYTOSIS SLIGHT; POLYCHROMASIA 1+
[2018-07-21 14:02] LABS: PLATELET COMMENT INCREASED; TEAR DROP CELLS SLIGHT
[2018-07-21] MEDS ORDERED: KETOROLAC TROMETHAMINE INJ/PF 30 MG/1 ML SDV IV ONE (17:11)
[2018-07-21] MEDS ORDERED: PHENAZOPYRIDINE HCL 200 MG TABLET PO ONE (17:11)
[2018-07-21] MEDS ORDERED: ONDANSETRON HCL INJ/PF 4 MG/2 ML SDV IV ONE (17:11)
--- NOTE | 2018-07-21 17:12 | ER Document Report ---
ED General - General Chief Complaint: Pain With Urination Stated Complaint: DIZZY/SIDE PAIN/URINARY ISSUE Time Seen by Provider: 07/21/18 12:45 Primary Care Provider: RAMIRO MOTT MD [ACTIVE STAFF] - Follow up in 3-5 days Mode of Arrival: Ambulatory Notes: Patient is a 28-year-old female that presents to the emergency department for chief complaint of left flank pain. Patient reports that this pain is been present for the past few days, she is had associated dysuria, she is been taking Motrin and she does report a fever at home which was improved with Motrin. Denies prior history of kidney stones. She denies noting any blood in the urine. She also denies any headaches, lightheadedness, chest pain, shortness of breath or difficulty breathing. She currently rates her pain as a 9 out of 10 describes as an aching and stabbing in the left flank. Past Medical History: Diabetes mellitus, poorly controlled Past Surgical History: Denies surgical history Social History: Admits to smoking cigarettes and occasional alcohol use, denies illicit drug use. Family History: Reviewed and noncontributory for presenting illness Allergies: Reviewed, see documented allergy list. REVIEW OF SYSTEMS: Other than noted above, the 12 point review of systems was reviewed with the patient and were negative, all pertinent findings are included in the HPI. PHYSICAL EXAMINATION: Vital signs reviewed, nursing noted reviewed. GENERAL: Well-appearing, well-nourished and in no acute distress. HEAD: Atraumatic, normocephalic. EYES: Eyes appear normal, extraocular movements intact, sclera anicteric, conjunctiva are normal. ENT: nares patent, oropharynx clear without exudates. Moist mucous membranes. NECK: Normal range of motion, supple without lymphadenopathy LUNGS: Breath sounds clear to auscultation bilaterally and equal. No wheezes rales or rhonchi. HEART: Regular rate and rhythm without murmurs ABDOMEN: Soft, mild left CVA tenderness with palpation, normoactive bowel s ounds. No rebound, guarding, or rigidity. No masses appreciated. EXTREMITIES: Nontender, good range of motion, no pitting or edema. NEUROLOGICAL: No focal neurological deficits. Moves all extremities spontaneously Motor and sensory grossly intact on exam. PSYCH: Normal mood, normal affect. SKIN: Warm, Dry, normal turgor, no rashes or lesions noted on exposed skin TRAVEL OUTSIDE OF THE [place] IN LAST 30 DAYS: No - Related Data Allergies/Adverse Reactions: No Known Allergies Allergy (Verified 07/21/18 12:00) Past Medical History - General Information source: Patient - Social History Smoking Status: Current Some Day Smoker Frequency of alcohol use: None Drug Abuse: None Family History: CAD, CVA, DM, Hypertension, Malignancy Patient has suicidal ideation: No Patient has homicidal ideation: No Endocrine Medical History: Reports: Hx Diabetes Mellitus Type 1, Hx Diabetes Mellitus Type 2 Renal/ Medical History: Denies: Hx Peritoneal Dialysis Past Surgical History: Reports: Hx Section - x2, Hx Tubal Ligation - Immunizations Immunizations up to date: Yes Hx Diphtheria, Pertussis, Tetanus Vaccination: Yes Physical Exam - Vital signs Vitals: Temp Pulse Resp BP Pulse Ox 98.4 F 92 14 131/79 H 97 07/21/18 12:13 07/21/18 12:13 07/21/18 12:13 07/21/18 12:13 07/21/18 12:13 Course - Re-evaluation Re-evalutation: Patient seen and examined vital signs reviewed. Laboratory data and/or imaging were ordered as appropriate for the patient's presenting symptoms and complaint, with consideration of any critical or life threatening conditions that may be associated with their obtained history and exam as noted above. Patient was treated with IV fluids, Toradol, and Zofran Results were reviewed when available and demonstrated UA consistent with urinary tract infection, and she was noted to be rather hyperglycemic, without anion gap, which did improve with IV fluids, after discussion with the patient, she has been not using her insulin as directed, but states she just got insurance and will be following up with the primary care physician soon to be put on medication to better control her diabetes. She also states she is been having a yeast infection, with irritation between her legs, and would like treatment for that as well, she was given a dose of Diflucan in the ED as well as a dose of IV Rocephin. She was also noted to be anemic, patient states that she has chronic anemia from iron deficiency, but she does not take iron supplements as directed, she was also given a prescription for this. The patient was re-evaluated and was stable and improved Evaluation was most consistent with pyelonephritis, patient will be continued on oral antibiotics, she was given prescription for Diflucan to take as well if needed after finishing antibiotics, she is also given a prescription for naproxen and Pyridium and advised to follow-up with her primary care regarding her hyperglycemia. Results were discussed with the patient at this point, after careful considerat ion I feel that that patient can be discharged from the emergency department, the patient was educated treatments and reasons to return to the emergency department based on their presumed diagnosis as noted above, they were advised to followup with a primary care physician in 2-3 days. Patient was agreeable to plan of care. *Note is created using voice recognition software and may contain spelling, syntax or grammatical errors. Laboratory 07/21/18 07/21/18 07/21/18 12:57 12:57 12:57 WBC 6.8 RBC 4.46 Hgb 8.0 L Hct 26.9 L MCV 60 L MCH 18.0 L MCHC 29.9 L RDW 18.3 H Plt Count 509 H Seg Neutrophils % 60.7 Lymphocytes % 31.0 Monocytes % 6.3 Eosinophils % 1.3 Basophils % 0.7 Absolute Neutrophils 4.1 Absolute Lymphocytes 2.1 Absolute Monocytes 0.4 Absolute Eosinophils 0.1 Absolute Basophils 0.0 Platelet Comment INCREASED Polychromasia 1+ Hypochromasia 2+ Poikilocytosis SLIGHT Anisocytosis 1+ Microcytosis 3+ Tear Drop Cells SLIGHT Ovalocytes SLIGHT Sodium 135.2 L Potassium 4.1 Chloride 102 Carbon Dioxide 23 Anion Gap 10 BUN 3 L Creatinine 0.47 L Est GFR ( Amer) > 60 Est GFR (Non-Af Amer) > 60 Glucose 570 H* POC Glucose Calcium 10.3 H Total Bilirubin 0.5 Direct Bilirubin 0.2 Neonat Total Bilirubin Not Reportable Neonat Direct Bilirubin Not Reportable Neonat Indirect Bili Not Reportable AST 31 ALT 27 Alkaline Phosphatase 111 Total Protein 7.6 Albumin 4.1 Lipase 162.7 Urine Color YELLOW Urine Appearance SLIGHTLY-CLOUDY Urine pH 6.0 Ur Specific [place] 1.030 Urine Protein NEGATIVE Urine Glucose (UA) >=500 H Urine Ketones NEGATIVE Urine Blood MODERATE H Urine Nitrite NEGATIVE Urine Bilirubin NEGATIVE Urine Urobilinogen NEGATIVE Ur Leukocyte Esterase TRACE H Urine WBC (Auto) 6 Urine RBC (Auto) 1 U Hyaline Cast (Auto) 1 Urine Bacteria (Auto) TRACE Squamous Epi Cells Auto 13 Urine Mucus (Auto) RARE Urine Ascorbic Acid NEGATIVE Urine HCG, Qual NEGATIVE 07/21/18 15:29 WBC RBC Hgb Hct MCV MCH MCHC RDW Plt Count Seg Neutrophils % Lymphocytes % Monocytes % Eosinophils % Basophils % Absolute Neutrophils Absolute Lymphocytes Absolute Monocytes Absolute Eosinophils Absolute Basophils Platelet Comment Polychromasia Hypochromasia Poikilocytosis Anisocytosis Microcytosis Tear Drop Cells Ovalocytes Sodium Potassium Chloride Carbon Dioxide Anion Gap BUN Creatinine Est GFR ( Amer) Est GFR (Non-Af Amer) Glucose POC Glucose 480 H* Calcium Total Bilirubin Direct Bilirubin Neonat Total Bilirubin Neonat Direct Bilirubin Neonat Indirect Bili AST ALT Alkaline Phosphatase Total Protein Albumin Lipase Urine Color Urine Appearance Urine pH Ur Specific [place] Urine Protein Urine Glucose (UA) Urine Ketones Urine Blood Urine Nitrite Urine Bilirubin Urine Urobilinogen Ur Leukocyte Esterase Urine WBC (Auto) Urine RBC (Auto) U Hyaline Cast (Auto) Urine Bacteria (Auto) Squamous Epi Cells Auto Urine Mucus (Auto) Urine Ascorbic Acid Urine HCG, Qual Abdomen/Pelvis CT 07/21/18 17:11 IMPRESSION: NO SIGNIFICANT OR ACUTE PROCESS IN THE ABDOMEN OR PELVIS. - Vital Signs Vital signs: Temp Pulse Resp BP Pulse Ox 98.4 F 92 27 H 108/40 L 100 07/21/18 12:13 07/21/18 12:13 07/21/18 19:00 07/21/18 18:03 07/21/18 18:03 - Laboratory Result Diagrams: 07/21/18 12:57 07/21/18 12:57 Laboratory results interpreted by me: 07/21/18 07/21/18 07/21/18 12:57 12:57 12:57 Hgb 8.0 L Hct 26.9 L MCV 60 L MCH 18.0 L MCHC 29.9 L RDW 18.3 H Plt Count 509 H Sodium 135.2 L BUN 3 L Creatinine 0.47 L Glucose 570 H* POC Glucose Calcium 10.3 H Urine Glucose (UA) >=500 H Urine Blood MODERATE H Ur Leukocyte Esterase TRACE H 07/21/18 15:29 Hgb Hct MCV MCH MCHC RDW Plt Count Sodium BUN Creatinine Glucose POC Glucose 480 H* Calcium Urine Glucose (UA) Urine Blood Ur Leukocyte Esterase Discharge - Discharge Clinical Impression: Pyelonephritis, Hyperglycemia Anemia Qualifiers: Anemia type: unspecified type Qualified Code(s): D64.9 - Anemia, unspecified Condition: Stable Disposition: HOME, SELF-CARE Instructions: Anemia, Iron Deficiency ([facility]), Pyelonephritis ([facility]) Additional Instructions: Please complete the entire course of antibiotics as prescribed, if you have worsening symptoms, or not improving over the next several days, do not hesitate to return to the emergency department, I also recommend that you take the Pyridium to help with the burning with urinating, and I also recommend he start treating her iron deficiency anemia, with daily iron supplements that have been prescribed. Prescriptions: RX: Ferrous Sulfate [Feosol] 325 mg PO DAILY #30 tablet Fluconazole [Diflucan] 150 mg PO ONCE PRN #1 tablet PRN Reason: YEAST INFECTION RX: Naproxen [Naprosyn] 500 mg PO BID PRN #30 tablet PRN Reason: flank pain Phenazopyridine HCl [Pyridium 200 mg Tablet] 200 mg PO TID #15 tablet Sulfamethoxazole/Trimethoprim [Bactrim Ds Tablet] 1 each PO BID #14 tablet Referrals: RAMIRO MOTT MD [ACTIVE STAFF] - Follow up in 3-5 days
[2018-07-21] MEDS ORDERED: MORPHINE SULFATE 10 MG/ML INJ IV ONE (17:46)
[2018-07-21] MEDS ORDERED: CEFTRIAXONE 1 GM/D5W RTU 1 GM/50 ML RTUPB IV ONE (18:06)
--- NOTE | 2018-07-21 18:09 | RADIOLOGY REPORT (SQ) ---
EXAM DESCRIPTION: CT ABD/PELVIS NO ORAL OR IV COMPLETED DATE/TIME: 07/21/2018 5:56 pm REASON FOR STUDY: left flank pain COMPARISON: None. TECHNIQUE: CT scan of the abdomen and pelvis performed without intravenous or oral contrast. Images reviewed with lung, soft tissue, and bone windows. Reconstructed coronal and sagittal MPR images revi ewed. All images stored on PACS. All CT scanners at this facility use dose modulation, iterative reconstruction, and/or weight based d osing when appropriate to reduce radiation dose to as low as reasonably achievable (ALARA). [facility]: Dose Right [facility]: CareDose [facility]: Dose Right [facility]: Teradose 4D [facility]: Smart [employer] RADIATION DOSE: CT Rad equipment meets quality standard of care and radiation dose reduction techniq ues were employed. CTDIvol: 14.5 mGy. DLP: 795 mGy-cm.mGy. LIMITATIONS: None. FINDINGS: LOWER CHEST: No significant findings. No nodules or infiltrates. NON-CONTRASTED LIVER, SPLEEN, ADRENALS: Evaluation limited by lack of IV contrast. No identified sign ificant masses. PANCREAS: No masses. No peripancreatic inflammatory changes. GALLBLADDER: No identified stones by CT criteria. No inflammatory changes to suggest cholecystitis. RIGHT KIDNEY AND URETER: No suspicious masses. Assessment limited by lack of IV contrast. No signif icant calcifications. No hydronephrosis or hydroureter. LEFT KIDNEY AND URETER: No suspicious masses. Assessment limited by lack of IV contrast. No signifi cant calcifications. No hydronephrosis or hydroureter. AORTA AND RETROPERITONEUM: No aneurysm. No retroperitoneal masses or adenopathy. BOWEL AND PERITONEAL CAVITY: No obvious masses or inflammatory changes. No free fluid. APPENDIX: Not identified. PELVIS, BLADDER, AND ABDOMINAL WALL:No abnormal masses. No free fluid. Bladder normal. BONES: No significant findings. OTHER: No other significant finding. IMPRESSION: NO SIGNIFICANT OR ACUTE PROCESS IN THE ABDOMEN OR PELVIS. COMMENT: Quality ID # [id number]: Final reports with documentation of one or more dose reduction techniques (e.g., Automated exposure control, adjustment of the mA and/or kV according to patient size, use of iterative reconstruction technique) TECHNICAL DOCUMENTATION: JOB ID: [id number] [employer]- All Rights Reserved Reading location - IP/workstation name: [email or web address]
[2018-07-21] MEDS ORDERED: FLUCONAZOLE 100 MG TABLET PO ONE (18:54)
[2018-07-21 19:21] VITALS: BP 108/40
== END 2018-07-21 19:35 | disposition home or self-care (01) ==
LOC: ER 11:58
DX: N12 Tubulo-interstitial nephritis, not specified as acute or chronic (principal); E11.65 Type 2 diabetes mellitus with hyperglycemia; D64.9 Anemia, unspecified; R30.9 Painful micturition, unspecified; R42 Dizziness and giddiness; R39.198 Other difficulties with micturition; R10.9 Unspecified abdominal pain; R30.0 Dysuria; R50.9 Fever, unspecified; F17.200 Nicotine dependence, unspecified, uncomplicated
CPT/HCPCS: 99284; 96361; 96375; 96365; 36415; 87086; 82962; 83690; 85025; 81025; 87088; 80053; 81001; 87186; 74176; J1885; J2270; J3490; J2405; J7030; J0696

== ENCOUNTER 2018-08-08 15:40 | Emergency (ER) | payer BC ==
[2018-08-08 15:58] VITALS: BP 138/87
[2018-08-08] MEDS ORDERED: IBUPROFEN 800 MG TABLET PO ONE (17:10)
[2018-08-08] MEDS ORDERED: AMOXICILLIN TR/POT CLAVULANATE 500-125 MG TAB PO ONE (17:10)
[2018-08-08] MEDS ORDERED: LIDOCAINE 2% VISCOUS SOLN 20 ML UDCUP PO ONE (17:10)
[2018-08-08] MEDS ORDERED: OXYCODONE-ACETAMINOPHEN 5-325 MG TABLET PO ONE (17:10)
[2018-08-08] MEDS ORDERED: AMOXICILLIN TRIHYD 250 MG CAPSULE PO ONE (17:10)
--- NOTE | 2018-08-08 17:15 | ER Document Report ---
HPI - HPI Patient complains to provider of: Dental pain Time Seen by Provider: 08/08/18 16:43 Onset: Yesterday Onset/Duration: Worse Quality of pain: Achy Pain Level: 4 Context: Patient presents with a 2-day history of left upper dental pain. Patient did see a dentist earlier this afternoon was told that she had an infection and that she needed to get the tooth removed as soon as possible. Patient states that that dentist will not be able to do the extraction as she has diabetes. Patient states that he has to find a different oral surgeon to remove the tooth. Patient without any fever or facial swelling. Associated Symptoms: Other - Dental pain Exacerbated by: Denies Relieved by: Denies Similar symptoms previously: Yes Recently seen / treated by doctor: Yes - ROS ROS below otherwise negative: Yes Systems Reviewed and Negative: Yes All other systems reviewed and negative - CONSTITUTIONAL Constitutional: DENIES: Fever, Chills - EENT Notes: Dental pain - GASTROINTESTINAL Gastrointestinal: DENIES: Nausea - REPRODUCTIVE Reproductive: DENIES: : - DERM Skin Color: Normal Skin Problems: None Past Medical History - General Information source: Patient - Social History Smoking Status: Current Every Day Smoker Chew tobacco use (# tins/day): No Smoking Education Provided: Yes Frequency of alcohol use: None Drug Abuse: None Occupation: none Family History: CAD, CVA, DM, Hypertension, Malignancy Patient has suicidal ideation: No Patient has homicidal ideation: No Endocrine Medical History: Reports: Hx Diabetes Mellitus Type 1 Renal/ Medical History: Denies: Hx Peritoneal Dialysis Past Surgical History: Reports: Hx Section - x2, Hx Tubal Ligation - Immunizations Immunizations up to date: Yes Hx Diphtheria, Pertussis, Tetanus Vaccination: Yes Vertical Provider Document - CONSTITUTIONAL Agree With Documented VS: Yes Exam Limitations: No Limitations General Appearance: WD/WN, No Apparent Distress - INFECTION CONTROL TRAVEL OUTSIDE OF THE [place] IN LAST 30 DAYS: No - HEENT HEENT: Atraumatic, Normocephalic Mouth Diagram: 1 - Dental decay, tenderness, no gingival abscess, no trismus, no sublingual or submental swelling. - NECK Neck: Normal Inspection, Supple. negative: Lymphadenopathy-Left, Lymphadenopathy-Right - RESPIRATORY Respiratory: Breath Sounds Normal, No Respiratory Distress - CARDIOVASCULAR Cardiovascular: Regular Rate, Regular Rhythm, No Murmur - BACK Back: Normal Inspection - MUSCULOSKELETAL/EXTREMETIES Musculoskeletal/Extremeties: MAEW - NEURO Level of Consciousness: Awake, Alert, Appropriate Motor/Sensory: No Motor Deficit - DERM Integumentary: Warm, Dry, No Rash Course - Re-evaluation Re-evalutation: 08/08/18 17:12 Patient saw a dentist earlier today and had x-rays and was told that she had a below the gumline dental infection. Patient without any obvious drainable abscess noted. Patient without any facial swelling. Patient states that the dentist she saw gave her prescription for antibiotics but told her that she would have to see a different dental provider to have the tooth extracted as she has a history of diabetes and it was going to be a more complex extraction. Patient was provided with an oral surgeons information and advised to follow-up with them for further evaluation. - Vital Signs Vital signs: Temp Pulse Resp BP Pulse Ox 99 F 82 18 138/87 H 100 08/08/18 15:57 08/08/18 15:57 08/08/18 15:57 08/08/18 15:57 08/08/18 15:57 Discharge - Discharge Clinical Impression: Toothache Condition: Stable Disposition: HOME, SELF-CARE Instructions: Anti-Inflammatory Medication ([facility]), Dentist, Toothache ([facility]) Additional Instructions: Return immediately for any new or worsening symptoms Followup with a primary care provider, call tomorrow to make a followup appointment Follow-up with an oral surgeon or dentist for further evaluation. Call Saturday for an appointment Get the prescription for the Augmentin filled that you were given today and take as prescribed. Prescriptions: Naproxen [Naprosyn 250 Nmg Tablet] 1 tab PO BID #14 tablet Forms: Smoking Cessation Education Referrals: [facility] [Provider Group] - Follow up as needed [facility] [Provider Group] - Follow up as needed
== END 2018-08-08 17:30 | disposition home or self-care (01) ==
LOC: ER 15:40
DX: K08.9 Disorder of teeth and supporting structures, unspecified (principal); F17.200 Nicotine dependence, unspecified, uncomplicated; E10.9 Type 1 diabetes mellitus without complications; Z98.51 Tubal ligation status
CPT/HCPCS: 99282; J3490 ×2

== ENCOUNTER 2018-09-02 14:22 | Emergency (ER) | payer BC ==
[2018-09-02] MEDS ORDERED: NORMAL SALINE 1000 ML 1,000 ML IV ONE (15:28)
--- NOTE | 2018-09-02 15:30 | ER Document Report ---
ED Medical Screen (RME) - General Chief Complaint: Dizziness Stated Complaint: DIZZINESS Time Seen by Provider: 09/02/18 15:27 Primary Care Provider: CLAIRE TORREZ [Primary Care Provider] - Follow up as needed Mode of Arrival: Ambulatory Information source: Patient Notes: 28-year-old female presented to ED for complaint of dizziness lightheadedness, nausea, very thirsty, frequent urination. She does have a history of diabetes type 2. She states that the last time she had NovoLog was last week. She does take her long-acting insulin but she is not sure the name of it but is not Lantus. She took that last night. She states she was recently diagnosed with diabetes and at the time she had a sugar over 500. Patient is alert oriented and is able to answer questions walk with a even steady gait and to use her telephone. I have greeted and performed a rapid initial assessment of this patient. A comprehensive ED assessment and evaluation of the patient, analysis of test results and completion of medical decision making process will be conducted by an additional ED providers. Dictation of this chart was performed using voice recognition software; therefore, there may be some unintended grammatical errors. TRAVEL OUTSIDE OF THE [place] IN LAST 30 DAYS: No - Related Data Allergies/Adverse Reactions: No Known Allergies Allergy (Verified 09/02/18 14:25) Past Medical History - Social History Family history: Reviewed & Not Pertinent Endocrine Medical History: Reports: Hx Diabetes Mellitus Type 1, Hx Diabetes Mellitus Type 2 Renal/ Medical History: Denies: Hx Peritoneal Dialysis Past Surgical History: Reports: Hx Section - x2, Hx Tubal Ligation - Immunizations Immunizations up to date: Yes Hx Diphtheria, Pertussis, Tetanus Vaccination: Yes Physical Exam - Vital signs Vitals: Temp Pulse Resp BP Pulse Ox 98.3 F 87 16 136/88 H 100 09/02/18 14:28 09/02/18 14:28 09/02/18 14:28 09/02/18 14:09/02/18 14:28 Course - Vital Signs Vital signs: Temp Pulse Resp BP Pulse Ox 98.3 F 87 16 136/88 H 100 09/02/18 14:28 09/02/18 14:28 09/02/18 14:28 09/02/18 14:28 09/02/18 14:28 Doctor's Discharge - Discharge Referrals: LOCALMD,NO [Primary Care Provider] - Follow up as needed
[2018-09-02 16:55] LABS: APPEARANCE,URINE CLOUDY; BILIRUBIN,URINE NEGATIVE (NEGATIVE); COLOR,URINE YELLOW; GLUCOSE, URINE >=500 mg/dL (NEGATIVE); KETONES,URINE NEGATIVE (NEGATIVE); LEUKOCYTE ESTERASE,URINE TRACE (NEGATIVE); NITRITE,URINE NEGATIVE (NEGATIVE); PROTEIN,URINE 30 mg/dL (NEGATIVE); UROBILINOGEN,URINE NEGATIVE mg/dL (<2.0)
[2018-09-02 17:11] LABS: ALANINE AMINOTRANSFERASE 17 U/L (9-52); ALBUMIN 4.3 g/dL (3.5-5.0); ALKALINE PHOSPHATASE 104 U/L (38-126); ANION GAP 8 (5-19); ASPARTATE AMINO TRANSFERASE 30 U/L (14-36); BILIRUBIN,DIRECT 0.3 mg/dL (0.0-0.4); BILIRUBIN,TOTAL 0.6 mg/dL (0.2-1.3); BLOOD UREA NITROGEN 10 mg/dL (7-20); CALCIUM 9.4 mg/dL (8.4-10.2); CARBON DIOXIDE 26 mmol/L (22-30); CHLORIDE 102 mmol/L (98-107); GLUCOSE 239 mg/dL (75-110); POTASSIUM 3.9 mmol/L (3.6-5.0); TOTAL PROTEIN 8.4 g/dL (6.3-8.2)
[2018-09-02 17:30] LABS: ABSOLUTE BASOPHILS # (AUTO) 0.1 10^3/uL (0.0-0.2); ABSOLUTE EOSINOPHILS # (AUTO) 0.1 10^3/uL (0.0-0.6); ABSOLUTE LYMPHOCYTES (AUTO) 2.6 10^3/uL (0.5-4.7); ABSOLUTE MONOCYTES (AUTO) 0.5 10^3/uL (0.1-1.4); ABSOLUTE NEUT (AUTO) 3.6 10^3/uL (1.7-8.2); BASOPHILS % (AUTO) 0.9 % (0-2); EOSINOPHILS % (AUTO) 1.8 % (0-6); HEMATOCRIT 27.5 % (36.0-47.0); LYMPHOCYTES % (AUTO) 38.1 % (13-45); MEAN CORPUSCULAR VOLUME 59 fl (80-97); MONOCYTES % (AUTO) 7.3 % (3-13); PLATELET COUNT 365 10^3/uL (150-450); RED BLOOD COUNT 4.69 10^6/uL (3.72-5.28); RED CELL DISTRIBUTION WIDTH 17.7 % (11.5-14.0); SEGMENTED NEUTROPHILS % (AUTO) 51.9 % (42-78); TOTAL CELLS COUNTED % (AUTO) 100 %; WHITE BLOOD COUNT 6.9 10^3/uL (4.0-10.5)
[2018-09-02 17:44] LABS: ANISOCYTOSIS 1+; HYPOCHROMASIA 2+; PLATELET COMMENT ADEQUATE; POIKILOCYTOSIS SLIGHT; POLYCHROMASIA 1+; SPHEROCYTES SLIGHT
[2018-09-02] MEDS ORDERED: PRENATAL VITAMIN W DHA CAPSULE PO ONE (18:18)
--- NOTE | 2018-09-02 18:24 | ER Document Report ---
ED General - General Chief Complaint: Dizziness Stated Complaint: DIZZINESS Time Seen by Provider: 09/02/18 15:27 Primary Care Provider: CLAIRE TORREZ [Primary Care Provider] - Follow up as needed Mode of Arrival: Ambulatory Information source: Patient TRAVEL OUTSIDE OF THE [place] IN LAST 30 DAYS: No - HPI Patient complains to provider of: Dizziness, lightheadedness, fatigue Onset: Other - Past couple of days Onset/Duration: Gradual Quality of pain: No pain Severity: None Pain Level: Denies Associated symptoms: None Exacerbated by: Denies Relieved by: Denies Similar symptoms previously: No Recently seen / treated by doctor: No Notes: 28-year-old -[place] female coming in today with dizziness, lightheadedness, fatigue getting worse for the past couple of days. She is on the tail end of a menstrual cycle. She has a history of iron deficiency anemia. She has a new doctor who wanted her to come off of all of her medication. - Related Data Allergies/Adverse Reactions: No Known Allergies Allergy (Verified 09/02/18 14:25) Past Medical History - General Information source: Patient - Social History Smoking Status: Current Every Day Smoker Chew tobacco use (# tins/day): No Frequency of alcohol use: Occasional Drug Abuse: None Family History: CAD, CVA, DM, Hypertension, Malignancy Patient has suicidal ideation: No Patient has homicidal ideation: No Endocrine Medical History: Reports: Hx Diabetes Mellitus Type 1, Hx Diabetes Mellitus Type 2 Renal/ Medical History: Denies: Hx Peritoneal Dialysis Past Surgical History: Reports: Hx Section - x2, Hx Tubal Ligation - Immunizations Immunizations up to date: Yes Hx Diphtheria, Pertussis, Tetanus Vaccination: Yes Review of Systems - Review of Systems Notes: Constitutional: No fevers. No chills. EENT: No eye redness. No eye pain. No ear pain. No sore throat. Cardiovascular: No chest pain. No palpitations. Respiratory: No cough. No shortness of breath. No respiratory distress. Gastrointestinal: No abdominal pain. No nausea, vomiting, or diarrhea. Genitourinary: Atraumatic. No lesions. No pain. No discharge. Musculoskeletal: Atraumatic. No swelling. No deformities. Skin: No rash or lesions. Lymphatic: No swollen lymph nodes. Neurologic: No headache. No syncope. Weakness, lightheadedness, dizziness Psychiatric: No suicidal or homicidal ideation. Physical Exam - Vital signs Vitals: Temp Pulse Resp BP Pulse Ox 98.3 F 87 16 136/88 H 100 09/02/18 14:28 09/02/18 14:28 09/02/18 14:28 09/02/18 14:09/02/18 14:28 - Notes Notes: General: Well-developed, well-nourished. In no acute distress. Non-toxic appearing. Cardiac: Well-perfused. Regular rate and rhythm. No murmurs, rubs, or gallops. Pulmonary: No respiratory distress. No cyanosis. Bilateral lung fiels are clear to auscultation. Abdominal: Non-distended. Non-rigid. Bowels sounds are present in all four quadrants. No guarding or rebound. HEENT: Head is atraumatic. Conjunctival paleness. No tearing. PERRL. EOMI. Orbits atraumatic. No periorbital swelling or erythema. Oropharynx is without erythema, swelling, or exudates. Neck: Supple. No adenopathy. No meningismus. Dermatologic: Warm with good turgor. No rash. Atraumatic. Chest: Atraumatic. No chest wall tenderness to palpation. Musculoskeletal: Moves all extremities well. No range of motion deficits. no muscular or joint tenderness. No paraspinal muscle tenderness. no midline spinal tenderness or step-off. Genitourinary: Examination deferred Neurologic: No gross neurologic deficits. Psychiatric: Normal mood. Course - Re-evaluation Re-evalutation: 09/02/18 18:21 Patient had a hemoglobin of 8. She is just on the tail end of her menstrual cycle. I think given that we know she has a history of an we will start her back on iron pills and recheck her CBC in a couple of days. If she continues to go down or becomes more symptomatic she will probably need blood transfusion. She is encouraged to return the emergency department if this is the case. - Vital Signs Vital signs: Temp Pulse Resp BP Pulse Ox 98.3 F 87 16 136/88 H 100 09/02/18 14:28 09/02/18 14:28 09/02/18 14:28 09/02/18 14:28 09/02/18 14:28 - Laboratory Result Diagrams: 09/02/18 16:09/02/18 16:05 Laboratory results interpreted by me: 09/02/18 09/02/18 09/02/18 16:05 16:05 16:05 Hgb 8.0 L Hct 27.5 L MCV 59 L MCH 17.0 L MCHC 29.0 L RDW 17.7 H Sodium 136.0 L Creatinine 0.43 L Glucose 239 H Total Protein 8.4 H Urine Protein 30 H Urine Glucose (UA) >=500 H Ur Leukocyte Esterase TRACE H Discharge - Discharge Clinical Impression: Iron deficiency anemia Qualifiers: Iron deficiency anemia type: unspecified iron deficiency Qualified Code(s): D50.9 - Iron deficiency anemia, unspecified Condition: Good Disposition: HOME, SELF-CARE Instructions: Anemia, Iron Deficiency ([facility]) Additional Instructions: Start your iron pills again. If your symptoms get worse, return to the emergency department otherwise plan to see her doctor in the next 24 to 48 hours for blood count rechecked. Referrals: primary doctor, your [Other] - Follow up tomorrow
[2018-09-02 18:39] VITALS: BP 151/91
== END 2018-09-02 18:51 | disposition home or self-care (01) ==
LOC: ER 14:22
DX: D50.9 Iron deficiency anemia, unspecified (principal); R42 Dizziness and giddiness; R53.83 Other fatigue; F17.200 Nicotine dependence, unspecified, uncomplicated; E11.9 Type 2 diabetes mellitus without complications; Z98.51 Tubal ligation status
CPT/HCPCS: 99284; 96360; 36415; 82962; 84703; 85025; 80053; 81001; J7030; J3490

== ENCOUNTER 2018-10-01 08:19 | Outpatient (CLI) | payer BC ==
[~2018-10-01 08:19] MED LIST: FERUMOXYTOL 510 MG in NORMAL SALINE 100 ML IV PRN; NORMAL SALINE 250 ML IV PRN
[2018-10-01 08:47] VITALS: BP 137/78
== END 2018-10-01 09:41 | disposition home or self-care (01) ==
LOC: II 08:19 → 5TH 09:18 → II 09:41
PROVIDERS: ATTEND Internal Medicine
PROC: 3E033GC Introduction of Other Therapeutic Substance into Peripheral Vein, Percutaneous Approach (ICD-10-PCS; principal; 2018-10-01)
DX: D50.9 Iron deficiency anemia, unspecified (principal); K90.9 Intestinal malabsorption, unspecified
CPT/HCPCS: 96365; Q0138; J7050

== ENCOUNTER 2018-10-03 12:29 | Emergency (ER) | payer BC ==
--- NOTE | 2018-10-03 12:54 | ER Document Report ---
ED Medical Screen (RME) - General Chief Complaint: Abdominal Pain Stated Complaint: FLANK PAIN Time Seen by Provider: 10/03/18 12:49 Primary Care Provider: CHAD OROZCO MD [Primary Care Provider] - Follow up as needed Mode of Arrival: Ambulatory Information source: Patient Notes: 28-year-old female presented to ED for complaint of bilateral flank pain abdominal cramping and pelvic pain for the last week. She states the pain became much worse after she got her iron infusion on Saturday. She states she has a history of anemia so she gets iron infusions. Patient is alert oriented respirations regular and unlabored speaking in full sentences walks with a even steady gait. She states she knows she is not and she does not think she has any kind of STD but we will test for both. I have greeted and performed a rapid initial assessment of this patient. A comprehensive ED assessment and evaluation of the patient, analysis of test results and completion of medical decision making process will be conducted by an additional ED providers. Dictation of this chart was performed using voice recognition software; therefore, there may be some unintended grammatical errors. TRAVEL OUTSIDE OF THE [place] IN LAST 30 DAYS: No - Related Data Allergies/Adverse Reactions: No Known Allergies Allergy (Verified 10/03/18 12:35) Past Medical History - Social History Chew tobacco use (# tins/day): No Frequency of alcohol use: week ends Drug Abuse: None Family history: Reviewed & Not Pertinent Endocrine Medical History: Reports: Hx Diabetes Mellitus Type 1, Hx Diabetes Mellitus Type 2 Renal/ Medical History: Denies: Hx Peritoneal Dialysis Past Surgical History: Reports: Hx Section - x2, Hx Tubal Ligation - Immunizations Immunizations up to date: Yes Hx Diphtheria, Pertussis, Tetanus Vaccination: Yes Doctor's Discharge - Discharge Referrals: CHAD OROZCO MD [Primary Care Provider] - Follow up as needed
[2018-10-03 13:28] LABS: APPEARANCE,URINE SLIGHTLY-CLOUDY; BILIRUBIN,URINE NEGATIVE (NEGATIVE); COLOR,URINE YELLOW; GLUCOSE, URINE >=500 mg/dL (NEGATIVE); KETONES,URINE TRACE mg/dL (NEGATIVE); LEUKOCYTE ESTERASE,URINE NEGATIVE (NEGATIVE); NITRITE,URINE NEGATIVE (NEGATIVE); PROTEIN,URINE 30 mg/dL (NEGATIVE); URINE SPECIFIC GRAVITY 1.028; UROBILINOGEN,URINE NEGATIVE mg/dL (<2.0)
[2018-10-03 13:31] LABS: BACTERIA (WET MOUNT) 4+ BACTERIA SEEN; EPITHELIALS (WET MOUNT) 3+ EPITHELIALS SEEN; RBCS (WET MOUNT) RARE RBCS SEEN; T.VAGINALIS (WET MOUNT) NO TRICHOMONAS SEEN; WBCS (WET MOUNT) 2+ WBCS SEEN; YEAST (WET MOUNT) NO YEAST SEEN
[2018-10-03 13:39] LABS: ABSOLUTE BASOPHILS # (AUTO) 0.1 10^3/uL (0.0-0.2); ABSOLUTE EOSINOPHILS # (AUTO) 0.1 10^3/uL (0.0-0.6); ABSOLUTE LYMPHOCYTES (AUTO) 2.7 10^3/uL (0.5-4.7); ABSOLUTE MONOCYTES (AUTO) 0.4 10^3/uL (0.1-1.4); ABSOLUTE NEUT (AUTO) 4.5 10^3/uL (1.7-8.2); BASOPHILS % (AUTO) 1.2 % (0-2); EOSINOPHILS % (AUTO) 1.2 % (0-6); HEMATOCRIT 27.5 % (36.0-47.0); HEMOGLOBIN 8.3 g/dL (12.0-15.5); LYMPHOCYTES % (AUTO) 34.9 % (13-45); MEAN CORPUSCULAR HEMOGLOBIN 17.6 pg (27.0-33.4); MEAN CORPUSCULAR HGB CONC 30.3 g/dL (32.0-36.0); MEAN CORPUSCULAR VOLUME 58 fl (80-97); MONOCYTES % (AUTO) 4.9 % (3-13); PLATELET COUNT 312 10^3/uL (150-450); RED BLOOD COUNT 4.74 10^6/uL (3.72-5.28); RED CELL DISTRIBUTION WIDTH 17.5 % (11.5-14.0); SEGMENTED NEUTROPHILS % (AUTO) 57.8 % (42-78); TOTAL CELLS COUNTED % (AUTO) 100 %; WHITE BLOOD COUNT 7.8 10^3/uL (4.0-10.5)
[2018-10-03 13:49] LABS: ALANINE AMINOTRANSFERASE 17 U/L (9-52); ALBUMIN 4.3 g/dL (3.5-5.0); ALKALINE PHOSPHATASE 103 U/L (38-126); ANION GAP 12 (5-19); ASPARTATE AMINO TRANSFERASE 23 U/L (14-36); BILIRUBIN,DIRECT 0.2 mg/dL (0.0-0.4); BILIRUBIN,TOTAL 0.5 mg/dL (0.2-1.3); BLOOD UREA NITROGEN 10 mg/dL (7-20); CALCIUM 9.8 mg/dL (8.4-10.2); CARBON DIOXIDE 24 mmol/L (22-30); CHLORIDE 100 mmol/L (98-107); GLUCOSE 355 mg/dL (75-110); POTASSIUM 3.9 mmol/L (3.6-5.0); SODIUM 136.2 mmol/L (137-145); TOTAL PROTEIN 7.9 g/dL (6.3-8.2)
[2018-10-03 13:59] LABS: ANISOCYTOSIS 1+
[2018-10-03 14:00] LABS: PLATELET COMMENT ADEQUATE
[2018-10-03 14:01] LABS: POLYCHROMASIA 1+
[2018-10-03 14:02] LABS: POIKILOCYTOSIS SLIGHT; TEAR DROP CELLS SLIGHT
[2018-10-03 15:09] LABS: CHLAM PCR NOT DETECTED (NOT DETECT)
--- NOTE | 2018-10-03 15:15 | RADIOLOGY REPORT (SQ) ---
EXAM DESCRIPTION: U/S RETROPERITON (RENAL/AORTA) COMPLETED DATE/TIME: 10/03/2018 3:06 pm REASON FOR STUDY: bilateral flank pain COMPARISON: None. TECHNIQUE: Dynamic and static grayscale images acquired of the kidneys and bladder and recorded on P ACS. Additional selected color Doppler and spectral images recorded. LIMITATIONS: None. FINDINGS: RIGHT KIDNEY: Normal size. Normal echogenicity. No solid or suspicious masses. No hydronep hrosis. No calcifications. LEFT KIDNEY: Normal size. Normal echogenicity. No solid or suspicious masses. No hydronephrosis. No calcifications. BLADDER: No masses. OTHER FINDINGS: No other significant finding. IMPRESSION: NORMAL RENAL AND BLADDER ULTRASOUND. TECHNICAL DOCUMENTATION: JOB ID: [id number] [employer]- All Rights Reserved Reading location - IP/workstation name: [email or web address]
--- NOTE | 2018-10-03 15:17 | RADIOLOGY REPORT (SQ) ---
EXAM DESCRIPTION: U/S NON OB PEL TV W/DOPPLER COMPLETED DATE/TIME: 10/03/2018 3:06 pm REASON FOR STUDY: pelvic pain COMPARISON: 07/15/2015. TECHNIQUE: Dynamic and static grayscale images acquired of the pelvis via transvaginal approach and recorded on PACS. Additional selected color Doppler and spectral images recorded. LIMITATIONS: None. FINDINGS: UTERUS: Contour normal. No mass. ENDOMETRIAL STRIPE: No focal or generalized thickening. No masses. CERVIX: No nabothian cysts. RIGHT OVARY AND DOPPLER: Normal size. No worrisome masses. Normal arterial vascular flow without evid ence for torsion. LEFT OVARY AND DOPPLER: Normal size. No worrisome masses. Normal arterial vascular flow without evide nce for torsion. FREE FLUID: Small amount of free fluid in the posterior caudal sec. OTHER: No other significant finding. MEASUREMENTS: UTERUS: 5.1 x 5.9 x 10.6 cm. ENDOMETRIAL STRIPE: 9.3 mm. RIGHT OVARY: 2.7 x 2.8 x 4.3 cm. LEFT OVARY: 2.5 x 3.8 x 4.2 cm. IMPRESSION: NORMAL TRANSVAGINAL PELVIC ULTRASOUND. TECHNICAL DOCUMENTATION: JOB ID: [id number] [employer]- All Rights Reserved Rev-08/23 Reading location - IP/workstation name: [email or web address]
[2018-10-03] MEDS ORDERED: HYDROMORPHONE HCL INJ/PF 2 MG/ML AMPULE SUBCUT ONE (15:28)
[2018-10-03] MEDS ORDERED: ONDANSETRON 4 MG TAB.RAPDIS PO ONE (15:28)
--- NOTE | 2018-10-03 15:34 | ER Document Report ---
ED General - General Chief Complaint: Abdominal Pain Stated Complaint: FLANK PAIN Time Seen by Provider: 10/03/18 12:49 Primary Care Provider: CHAD OROZCO MD [Primary Care Provider] - Follow up as needed Mode of Arrival: Ambulatory TRAVEL OUTSIDE OF THE [place] IN LAST 30 DAYS: No - HPI Patient complains to provider of: Bilateral flank pain, low back pain, leg cramps, vaginal discharge Onset: Last week Onset/Duration: Constant Quality of pain: Sharp Severity: Severe Pain Level: 4 Associated symptoms: denies: Chills, Nonproductive cough, Productive cough, Diarrhea, Fever, Nausea, Vomiting, Sore throat Exacerbated by: Denies Relieved by: Denies Similar symptoms previously: No Recently seen / treated by doctor: No Notes: 28-year-old -Turkmen female coming in with a week's worth of bilateral flank pain, low back pain, leg cramps, dizziness. History of iron deficiency anemia. She is on iron infusions for this. No fevers or chills. No nausea vomiting or diarrhea - Related Data Allergies/Adverse Reactions: No Known Allergies Allergy (Verified 10/03/18 12:35) Past Medical History - General Information source: Patient - Social History Smoking Status: Current Every Day Smoker Chew tobacco use (# tins/day): No Frequency of alcohol use: week ends Drug Abuse: None Lives with: Alone Family History: CAD, CVA, DM, Hypertension, Malignancy Patient has suicidal ideation: No Patient has homicidal ideation: No Endocrine Medical History: Reports: Hx Diabetes Mellitus Type 1, Hx Diabetes Mellitus Type 2 Renal/ Medical History: Denies: Hx Peritoneal Dialysis Past Surgical History: Reports: Hx Section - x2, Hx Tubal Ligation - Immunizations Immunizations up to date: Yes Hx Diphtheria, Pertussis, Tetanus Vaccination: Yes Review of Systems - Review of Systems Notes: Constitutional: No fevers. No chills. EENT: No eye redness. No eye pain. No ear pain. No sore throat. Cardiovascular: No chest pain. No palpitations. Respiratory: No cough. No shortness of breath. No respiratory distress. Gastrointestinal: Bilateral flank pain Genitourinary: Atraumatic. No lesions. No pain. No discharge. Musculoskeletal: Positive for leg cramps Skin: No rash or lesions. Lymphatic: No swollen lymph nodes. Neurologic: No headache. No syncope. Psychiatric: No suicidal or homicidal ideation. Physical Exam - Vital signs Vitals: Temp Pulse Resp BP Pulse Ox 98.6 F 91 16 135/79 H 99 10/03/18 12:40 10/03/18 12:40 10/03/18 12:40 10/03/18 12:40 10/03/18 12:40 - Notes Notes: General: Well-developed, well-nourished. In no acute distress. Non-toxic appearing. Cardiac: Well-perfused. Regular rate and rhythm. No murmurs, rubs, or gallops. Pulmonary: No respiratory distress. No cyanosis. Bilateral lung fiels are clear to auscultation. Abdominal: Non-distended. Non-rigid. Bowels sounds are present in all four quadrants. No guarding or rebound. HEENT: Head is atraumatic. Conjunctivae not reddened. No tearing. PERRL. EOMI. Orbits atraumatic. No periorbital swelling or erythema. Oropharynx is without erythema, swelling, or exudates. Neck: Supple. No adenopathy. No meningismus. Dermatologic: Warm with good turgor. No rash. Atraumatic. Chest: Atraumatic. No chest wall tenderness to palpation. Musculoskeletal: Moves all extremities well. No range of motion deficits. no muscular or joint tenderness. No paraspinal muscle tenderness. no midline spinal tenderness or step-off. Genitourinary: Examination deferred Neurologic: No gross neurologic deficits. Psychiatric: Normal mood. Course - Re-evaluation Re-evalutation: 10/03/18 15:34 Patient is type 2 diabetes and some history of chronic iron deficiency anemia. Her exam is underwhelming. She is hemodynamically stable. She has a normal pelvic ultrasound. Pelvic swab reveals probable BV without gonorrhea chlamydia trichomoniasis or yeast. Renal ultrasound is negative. Will get CT abdomen pelvis no contrast. Suspect nothing will be found. 10/03/18 16:33 Patient's labs reassuring. Pelvic and renal ultrasound is normal. CT abdomen and pelvis without contrast performed and normal. I do not have a solid explanation for her back and flank pain. She does have evidence of bacterial vaginosis. We will treat her for musculoskeletal pain as well as metronidazole for her bacterial vaginosis. - Vital Signs Vital signs: Temp Pulse Resp BP Pulse Ox 98.6 F 91 16 135/79 H 99 10/03/18 12:40 10/03/18 12:40 10/03/18 12:40 10/03/18 12:40 10/03/18 12:40 - Laboratory Result Diagrams: 10/03/18 13:12 10/03/18 13:12 Laboratory results interpreted by me: 10/03/18 10/03/18 10/03/18 13:12 13:12 13:12 Hgb 8.3 L Hct 27.5 L MCV 58 L MCH 17.6 L MCHC 30.3 L RDW 17.5 H Sodium 136.2 L Glucose 355 H Urine Protein 30 H Urine Glucose (UA) >=500 H Urine Ketones TRACE H Discharge - Discharge Clinical Impression: Flank pain, Bacterial vaginosis Condition: Good Disposition: HOME, SELF-CARE Instructions: Abdominal Pain ([facility]), Antinausea Medication ([facility]) Additional Instructions: He will be prescribed naproxen as needed for flank pain. Please be diligent about managing your blood sugar take your medications as directed. Start taking Flagyl for the bacterial vaginosis. Please establish with a primary care provider or clinic who can do your general health maintenance as needed. Prescriptions: Metronidazole [Flagyl 500 mg Tablet] 500 mg PO BID #14 tablet Naproxen 500 mg PO BID 7 Days #14 tablet Referrals: CHAD OROZCO MD [Primary Care Provider] - Follow up as needed
--- NOTE | 2018-10-03 16:02 | RADIOLOGY REPORT (SQ) ---
EXAM DESCRIPTION: CT ABD/PELVIS NO ORAL OR IV COMPLETED DATE/TIME: 10/03/2018 3:49 pm REASON FOR STUDY: bilat flank pain COMPARISON: 07/21/2018 TECHNIQUE: CT scan of the abdomen and pelvis performed without intravenous or oral contrast. Images reviewed with lung, soft tissue, and bone windows. Reconstructed coronal and sagittal MPR images revi ewed. All images stored on PACS. All CT scanners at this facility use dose modulation, iterative reconstruction, and/or weight based d osing when appropriate to reduce radiation dose to as low as reasonably achievable (ALARA). [facility]: Dose Right [facility]: CareDose [facility]: Dose Right [facility]: Teradose 4D [facility]: Smart Milabra RADIATION DOSE: CT Rad equipment meets quality standard of care and radiation dose reduction techniq ues were employed. CTDIvol: 13.5 mGy. DLP: 717 mGy-cm.mGy. LIMITATIONS: None. FINDINGS: LOWER CHEST: No significant findings. No nodules or infiltrates. NON-CONTRASTED LIVER, SPLEEN, ADRENALS: Evaluation limited by lack of IV contrast. No identified sign ificant masses. PANCREAS: No masses. No peripancreatic inflammatory changes. GALLBLADDER: Contracted gallbladder. No identified stones by CT criteria. No inflammatory changes to suggest cholecystitis. RIGHT KIDNEY AND URETER: No suspicious masses. Assessment limited by lack of IV contrast. No signif icant calcifications. No hydronephrosis or hydroureter. LEFT KIDNEY AND URETER: No suspicious masses. Assessment limited by lack of IV contrast. No signifi cant calcifications. No hydronephrosis or hydroureter. AORTA AND RETROPERITONEUM: No aneurysm. No retroperitoneal masses or adenopathy. BOWEL AND PERITONEAL CAVITY: No obvious masses or inflammatory changes. No free fluid. APPENDIX: Normal. PELVIS, BLADDER, AND ABDOMINAL WALL:No abnormal masses. Small volume nonspecific fluid in the low pe lvis (series 3, image 70). Bladder normal. Tiny phlebolith in the low left hemipelvis which is unch anged in position compared to prior examination dated 07/21/2018. BONES: No significant findings. OTHER: No other significant finding. IMPRESSION: Small volume nonspecific fluid in the low pelvis, possibly functional in the reproductiv e age setting. No other noncontrast CT findings to explain abdominal pain. COMMENT: Quality ID # [id number]: Final reports with documentation of one or more dose reduction techniques (e.g., Automated exposure control, adjustment of the mA and/or kV according to patient size, use of iterative reconstruction technique) TECHNICAL DOCUMENTATION: JOB ID: [id number] [employer]- All Rights Reserved Reading location - IP/workstation name: [email or web address]
[2018-10-03 17:18] VITALS: BP 125/82
== END 2018-10-03 17:18 | disposition home or self-care (01) ==
LOC: ER 12:29
DX: N76.0 Acute vaginitis (principal); B96.89 Other specified bacterial agents as the cause of diseases classified elsewhere; R10.9 Unspecified abdominal pain; M54.5 Low back pain; R05 Cough; F17.200 Nicotine dependence, unspecified, uncomplicated; E11.9 Type 2 diabetes mellitus without complications; Z98.51 Tubal ligation status
CPT/HCPCS: 99284; 96372; 36415; 87210; 84703; 85025; 80053; 81001; 87491; 87591; 76770; 76830; 93976; 74176; S0119; J1170

== ENCOUNTER 2018-10-08 08:20 | Outpatient (CLI) | payer BC ==
[~2018-10-08 08:20] MED LIST changes: +FERUMOXYTOL (NON-ESRD) 510 MG/NS 100 ML IV PRN; -FERUMOXYTOL 510 MG in NORMAL SALINE 100 ML IV PRN
[2018-10-08 08:49] VITALS: BP 130/71
== END 2018-10-08 09:40 | disposition home or self-care (01) ==
LOC: II 08:20 → 5TH 08:23 → II 09:40
PROVIDERS: ATTEND Internal Medicine
PROC: 3E033GC Introduction of Other Therapeutic Substance into Peripheral Vein, Percutaneous Approach (ICD-10-PCS; principal; 2018-10-08)
DX: D50.9 Iron deficiency anemia, unspecified (principal); K90.9 Intestinal malabsorption, unspecified
CPT/HCPCS: 96365; Q0138; J7050

== ENCOUNTER 2018-11-05 21:39 | Emergency (ER) | payer BC ==
[2018-11-05] MEDS ORDERED: NORMAL SALINE 1000 ML 1,000 ML IV ONE (22:42)
[2018-11-06 00:41] LABS: ABSOLUTE BASOPHILS # (AUTO) 0.1 10^3/uL (0.0-0.2); ABSOLUTE EOSINOPHILS # (AUTO) 0.1 10^3/uL (0.0-0.6); ABSOLUTE LYMPHOCYTES (AUTO) 2.6 10^3/uL (0.5-4.7); ABSOLUTE MONOCYTES (AUTO) 0.4 10^3/uL (0.1-1.4); ABSOLUTE NEUT (AUTO) 2.9 10^3/uL (1.7-8.2); BASOPHILS % (AUTO) 1.6 % (0-2); EOSINOPHILS % (AUTO) 1.4 % (0-6); HEMATOCRIT 35.9 % (36.0-47.0); HEMOGLOBIN 11.4 g/dL (12.0-15.5); LYMPHOCYTES % (AUTO) 42.8 % (13-45); MEAN CORPUSCULAR HGB CONC 31.8 g/dL (32.0-36.0); MEAN CORPUSCULAR VOLUME 72 fl (80-97); MONOCYTES % (AUTO) 6.4 % (3-13); PLATELET COUNT 234 10^3/uL (150-450); RED BLOOD COUNT 4.97 10^6/uL (3.72-5.28); RED CELL DISTRIBUTION WIDTH 31.4 % (11.5-14.0); SEGMENTED NEUTROPHILS % (AUTO) 47.8 % (42-78); TOTAL CELLS COUNTED % (AUTO) 100 %
[2018-11-06 00:55] LABS: ANION GAP 10 (5-19); BLOOD UREA NITROGEN 10 mg/dL (7-20); CALCIUM 9.3 mg/dL (8.4-10.2); CARBON DIOXIDE 25 mmol/L (22-30); CHLORIDE 100 mmol/L (98-107); POTASSIUM 3.9 mmol/L (3.6-5.0)
--- NOTE | 2018-11-06 00:59 | ER Document Report ---
ED General - General Chief Complaint: High Blood Sugar Stated Complaint: ABDOMINAL PAIN, DIZZINESS, SUGAR PROBLEMS Time Seen by Provider: 11/05/18 22:35 Primary Care Provider: CHAD OROZCO MD [Primary Care Provider] - Follow up as needed Notes: Patient is a 28-year-old female is diabetic. She presents because she is been having high blood sugars over the last several days. She says that she currently is on long-acting insulin that is a new medication that she says comes in a green box. She cannot remember the name of it. She then does sliding scale insulin throughout the day. She uses NovoLog for her sliding scale. No fevers. Some nausea and vomiting today. No diarrhea. No abdominal pain. No dysuria. No other complaints this time. TRAVEL OUTSIDE OF THE [place] IN LAST 30 DAYS: No - Related Data Allergies/Adverse Reactions: No Known Allergies Allergy (Verified 10/03/18 12:35) Past Medical History - Social History Smoking Status: Never Smoker Frequency of alcohol use: None Drug Abuse: None Family History: CAD, CVA, DM, Hypertension, Malignancy Endocrine Medical History: Reports: Hx Diabetes Mellitus Type 1, Hx Diabetes Mellitus Type 2 Renal/ Medical History: Denies: Hx Peritoneal Dialysis Past Surgical History: Reports: Hx Section - x2, Hx Tubal Ligation - Immunizations Immunizations up to date: Yes Hx Diphtheria, Pertussis, Tetanus Vaccination: Yes Review of Systems - Review of Systems Notes: My Normal Review Basic REVIEW OF SYSTEMS: CONSTITUTIONAL : Denies fever, chills, or sweats. Denies recent illness. EENT: Denies eye, ear, throat, or mouth pain or symptoms. Denies nasal or sinus congestion. CARDIOVASCULAR: Denies chest pain. RESPIRATORY: Denies cough, cold, or chest congestion. Denies shortness of breath, difficulty breathing, or wheezing. GASTROINTESTINAL: Denies abdominal pain. Some vomiting denies constipation. Last BM: GENITOURINARY: Denies difficulty urinating, painful urination, burning, frequency, or blood in urine. FEMALE GENITOURINARY: Denies vaginal bleeding, abnormal or irregular periods. LMP: MUSCULOSKELETAL: Denies neck or back pain or joint pain or swelling. SKIN: Denies rash or skin lesions. NEUROLOGICAL: Denies altered mental status or loss of consciousness. Denies headache. Denies weakness or paralysis or loss of use of either side. Denies problems with gait or speech. Denies sensory or motor loss. ALL OTHER SYSTEMS REVIEWED AND NEGATIVE. Physical Exam - Vital signs Vitals: Temp Pulse Resp BP Pulse Ox 98.6 F 83 20 143/93 H 97 11/05/18 21:47 11/05/18 21:47 11/05/18 21:47 11/05/18 21:47 11/05/18 21:47 - Notes Notes: General Appearance: Well nourished, alert, cooperative, no acute distress, no obvious discomfort. Well-appearing. Vitals: reviewed, See vital signs table. Head: no swelling or tenderness to the head Eyes: PERRL, EOMI, Conjuctiva clear Mouth: No decreasd moisture Lungs: No wheezing, No rales, No rhonci, No accessory muscle use, good air ex change bilaterally. Heart: Normal rate, Regular rythm, No murmur, no rub Abdomen: Normal BS, soft, No rigidity, No abdominal tenderness, No guarding, no rebound, no abdominal masses, no organomegaly Extremities: strength 5/5 in all extremities, good pulses in all extremities, no swelling or tenderness in the extremities, no edema. Skin: warm, dry, appropriate color, no rash Neuro: speech clear, oriented x 3, normal affect, responds appropriately to questions. Course - Re-evaluation Re-evalutation: 11/06/18 04:00 Patient's blood sugars downtrending appropriately. She has no evidence of DKA on her left her evaluation. Clinically she looks well. Feel she safe to be discharged home. She says her blood sugars been hard to control ever since being switched this new form of long-acting insulin. She says her sugars are much better controlled on Lantus. I will switch her back to Lantus. I am encouraged her follow-up with your doctor for reevaluation and to inform him of the medication change. Patient agrees with plan and will be discharged home. She is to return to ER if she has recurrent high blood sugars not responding to her insulin or she feels unwell. Dictation of this chart was performed using voice recognition software; therefore, there may be some unintended grammatical errors. - Vital Signs Vital signs: Temp Pulse Resp BP Pulse Ox 98.0 F 73 20 124/66 100 11/06/18 03:31 11/06/18 03:31 11/06/18 03:31 11/06/18 03:31 11/06/18 03:31 - Laboratory Result Diagrams: 11/06/18 00:23 11/06/18 00:23 Laboratory results interpreted by me: 11/05/18 11/06/18 11/06/18 21:56 00:23 00:23 Hgb 11.4 L Hct 35.9 L MCV 72 L MCH 23.0 L MCHC 31.8 L RDW 31.4 H Sodium 134.7 L Creatinine 0.45 L Glucose 414 H* POC Glucose 456 H* Urine Glucose (UA) Urine Ketones Ur Leukocyte Esterase 11/06/18 11/06/18 02:44 03:05 Hgb Hct MCV MCH MCHC RDW Sodium Creatinine Glucose POC Glucose 268 H Urine Glucose (UA) >=500 H Urine Ketones TRACE H Ur Leukocyte Esterase MODERATE H Discharge - Discharge Clinical Impression: Hyperglycemia Condition: Good Disposition: HOME, SELF-CARE Additional Instructions: Please stop taking the new long-acting insulin that you have been getting samples for. We will switch you back to Lantus. I have prescribed the Lantus for you. Please continue to do your sliding scale with your Humalog at home. Please return to the ER if you have fevers, blood sugars consistently above 350, vomiting, or if you feel like you are worsening in any way. Please follow-up with your doctor to make them aware that we have switched you back to Lantus and to be reevaluated. Prescriptions: Lantus Solostar Pen 30 units SQ QPM #1 Pen Needle, Diabetic [Insulin Pen Needle] 1 each MC QPM #25 dis.needle Forms: Return to Work Referrals: CHAD OROZCO MD [Primary Care Provider] - Follow up in 3-5 days
[2018-11-06 01:02] LABS: ANISOCYTOSIS 4+; SPHEROCYTES 3+
[2018-11-06 01:04] LABS: PLATELET COMMENT ADEQUATE
[2018-11-06 01:07] LABS: GLUCOSE 414 mg/dL (75-110)
[2018-11-06] MEDS ORDERED: INSULIN REG, HUMAN 100 UNIT/ML 3 ML VIAL (PYX) SUBCUT ONE (01:21)
[2018-11-06] MEDS ORDERED: NORMAL SALINE 1000 ML 1,000 ML IV ONE (01:23)
[2018-11-06] MEDS ORDERED: ACETAMINOPHEN 325 MG TABLET PO ONE (01:57)
[2018-11-06] MEDS ORDERED: PREGABALIN 50 MG CAPSULE PO ONE (01:57)
[2018-11-06 03:32] VITALS: BP 124/66
[2018-11-06 03:40] LABS: APPEARANCE,URINE SLIGHTLY-CLOUDY; BILIRUBIN,URINE NEGATIVE (NEGATIVE); COLOR,URINE YELLOW; GLUCOSE, URINE >=500 mg/dL (NEGATIVE); KETONES,URINE TRACE mg/dL (NEGATIVE); LEUKOCYTE ESTERASE,URINE MODERATE (NEGATIVE); NITRITE,URINE NEGATIVE (NEGATIVE); PROTEIN,URINE NEGATIVE (NEGATIVE); UROBILINOGEN,URINE NEGATIVE mg/dL (<2.0)
[2018-11-06] MEDS ORDERED: INSULIN GLARGINE,HUM.REC.ANLOG 1,000 UNIT/10 ML VIAL SUBCUT ONE (03:52)
[2018-11-06] MEDS ORDERED: INSULIN GLARGINE,HUM.REC.ANLOG 1,000 UNIT/10 ML VIAL (PYX) SUBCUT ONE (04:45)
== END 2018-11-06 05:01 | disposition home or self-care (01) ==
LOC: ER 21:39
DX: E11.65 Type 2 diabetes mellitus with hyperglycemia (principal); Z79.4 Long term (current) use of insulin; R11.2 Nausea with vomiting, unspecified
CPT/HCPCS: 99283; 96360; 96361; 36415; 82962; 84703; 85025; 80048; 81001; J1815 ×2; J7030

== ENCOUNTER 2018-12-14 19:43 | Emergency (ER) | payer BC ==
--- NOTE | 2018-12-14 20:20 | ER Document Report ---
ED Medical Screen (RME) - General Chief Complaint: Back Pain Stated Complaint: RIGHT SHOULDER PAIN,LEFT SIDED FACIAL TINGLING Time Seen by Provider: 12/14/18 20:13 Primary Care Provider: CHAD OROZCO MD [Primary Care Provider] - Follow up as needed Mode of Arrival: Ambulatory Information source: Patient Notes: 28-year-old female presents to ED for complaint of numbness and tingling to the left side of her face and pain on the right neck shoulder and upper arm. She states she has some numbness and tingling to this right neck shoulder and arm also. She is alert oriented respirations regular and unlabored speaking in full sentences. She has full range of motion to both shoulders. 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 She states all of the symptoms started around noon today. Patient is alert oriented respirations regular and unlabored speaking in full sentences and she did walk into the room with a even steady gait. I have greeted and performed a rapid initial assessment of this patient. A comprehensive ED assessment and evaluation of the patient, analysis of test results and completion of medical decision making process will be conducted by an additional ED providers. TRAVEL OUTSIDE OF THE [place] IN LAST 30 DAYS: No - Related Data Allergies/Adverse Reactions: No Known Allergies Allergy (Verified 10/03/18 12:35) Past Medical History - Social History Family history: Reviewed & Not Pertinent Endocrine Medical History: Reports: Hx Diabetes Mellitus Type 1, Hx Diabetes Mellitus Type 2 Renal/ Medical History: Denies: Hx Peritoneal Dialysis Past Surgical History: Reports: Hx Section - x2, Hx Tubal Ligation - Immunizations Immunizations up to date: Yes Hx Diphtheria, Pertussis, Tetanus Vaccination: Yes Physical Exam - Vital signs Vitals: Temp Pulse Resp BP Pulse Ox 98.6 F 85 18 136/77 H 99 12/14/18 19:55 12/14/18 19:55 12/14/18 19:55 12/14/18 19:55 12/14/18 19:55 Course - Vital Signs Vital signs: Temp Pulse Resp BP Pulse Ox 98.6 F 85 18 136/77 H 99 12/14/18 19:55 12/14/18 19:55 12/14/18 19:55 12/14/18 19:55 12/14/18 19:55 Doctor's Discharge - Discharge Referrals: CHAD OROZCO MD [Primary Care Provider] - Follow up as needed
[2018-12-14 21:11] LABS: APPEARANCE,URINE CLEAR; BILIRUBIN,URINE NEGATIVE (NEGATIVE); COLOR,URINE YELLOW; GLUCOSE, URINE >=500 mg/dL (NEGATIVE); KETONES,URINE NEGATIVE (NEGATIVE); LEUKOCYTE ESTERASE,URINE NEGATIVE (NEGATIVE); NITRITE,URINE POSITIVE (NEGATIVE); PROTEIN,URINE NEGATIVE (NEGATIVE); URINE SPECIFIC GRAVITY 1.032; UROBILINOGEN,URINE NEGATIVE mg/dL (<2.0)
[2018-12-14 21:16] LABS: ABSOLUTE BASOPHILS # (AUTO) 0.1 10^3/uL (0.0-0.2); ABSOLUTE EOSINOPHILS # (AUTO) 0.1 10^3/uL (0.0-0.6); ABSOLUTE LYMPHOCYTES (AUTO) 3.2 10^3/uL (0.5-4.7); ABSOLUTE MONOCYTES (AUTO) 0.4 10^3/uL (0.1-1.4); ABSOLUTE NEUT (AUTO) 3.3 10^3/uL (1.7-8.2); BASOPHILS % (AUTO) 1.1 % (0-2); EOSINOPHILS % (AUTO) 2.1 % (0-6); HEMATOCRIT 33.2 % (36.0-47.0); HEMOGLOBIN 10.8 g/dL (12.0-15.5); LYMPHOCYTES % (AUTO) 45.4 % (13-45); MEAN CORPUSCULAR HEMOGLOBIN 24.6 pg (27.0-33.4); MEAN CORPUSCULAR HGB CONC 32.7 g/dL (32.0-36.0); MEAN CORPUSCULAR VOLUME 75 fl (80-97); MONOCYTES % (AUTO) 5.3 % (3-13); PLATELET COUNT 365 10^3/uL (150-450); RED BLOOD COUNT 4.41 10^6/uL (3.72-5.28); RED CELL DISTRIBUTION WIDTH 21.9 % (11.5-14.0); SEGMENTED NEUTROPHILS % (AUTO) 46.1 % (42-78); TOTAL CELLS COUNTED % (AUTO) 100 %; WHITE BLOOD COUNT 7.1 10^3/uL (4.0-10.5)
[2018-12-14 21:20] LABS: VENOUS BLOOD BASE EXCESS 1.5 mmol/L; VENOUS BLOOD HCO3 27.6 mmol/L (20-32); VENOUS BLOOD PCO2 48.8 mmHg (35-63); VENOUS BLOOD PH 7.37 (7.30-7.42)
[2018-12-14 21:24] LABS: ALBUMIN 4.1 g/dL (3.5-5.0); ALKALINE PHOSPHATASE 88 U/L (38-126); ANION GAP 11 (5-19); ASPARTATE AMINO TRANSFERASE 31 U/L (14-36); BILIRUBIN,DIRECT 0.2 mg/dL (0.0-0.4); BILIRUBIN,TOTAL 0.3 mg/dL (0.2-1.3); BLOOD UREA NITROGEN 15 mg/dL (7-20); CALCIUM 10.3 mg/dL (8.4-10.2); CARBON DIOXIDE 27 mmol/L (22-30); CHLORIDE 96 mmol/L (98-107); POTASSIUM 4.4 mmol/L (3.6-5.0); TOTAL PROTEIN 7.2 g/dL (6.3-8.2)
[2018-12-14 21:29] LABS: GLUCOSE 422 mg/dL (75-110)
[2018-12-14 21:36] LABS: ANISOCYTOSIS 3+; PLATELET COMMENT ADEQUATE; SCHISTOCYTES SLIGHT
[2018-12-14] MEDS ORDERED: FAMOTIDINE 20 MG TABLET PO ONE (21:37)
[2018-12-14] MEDS ORDERED: ONDANSETRON HCL INJ/PF 4 MG/2 ML SDV IV ONE (21:37)
[2018-12-14] MEDS ORDERED: HYDROCODONE/ACETAMINOPHEN 5-325 MG TABLET PO ONE (21:37)
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
[2018-12-14] MEDS ORDERED: INSULIN REG, HUMAN 100 UNIT/ML 3 ML VIAL (PYX) SUBCUT ONE (21:38)
[2018-12-14] MEDS: NORMAL SALINE 1000 ML 1,000 ML IV PRN ×2 (21:55→23:32)
[2018-12-15] MEDS ORDERED: CEPHALEXIN 500 MG CAPSULE PO ONE (00:53)
[2018-12-15 02:00] VITALS: BP 126/81
== END 2018-12-15 02:07 | disposition home or self-care (01) ==
LOC: ER 19:43
DX: E11.65 Type 2 diabetes mellitus with hyperglycemia (principal); M79.601 Pain in right arm; M25.511 Pain in right shoulder; R20.0 Anesthesia of skin; R10.9 Unspecified abdominal pain; R30.0 Dysuria; R11.0 Nausea; Z79.4 Long term (current) use of insulin; Z87.891 Personal history of nicotine dependence
CPT/HCPCS: 36415; 82962; 84703; 85025; 80053; 81001; 82803; J1815; J2405; J7030; 96361; 96374; 99283

== ENCOUNTER 2018-12-17 07:44 | Outpatient (CLI) | payer BC ==
[2018-12-17 07:59] VITALS: BP 135/86
== END 2018-12-17 09:30 | disposition home or self-care (01) ==
LOC: II 07:44 → 5TH 07:49 → II 09:30
PROVIDERS: ATTEND Internal Medicine
PROC: 3E033GC Introduction of Other Therapeutic Substance into Peripheral Vein, Percutaneous Approach (ICD-10-PCS; principal; 2018-12-17)
DX: D50.9 Iron deficiency anemia, unspecified (principal); K90.9 Intestinal malabsorption, unspecified
CPT/HCPCS: 96365; Q0138; J7050

== ENCOUNTER 2018-12-24 08:09 | Outpatient (CLI) | payer BC ==
[2018-12-24 08:27] VITALS: BP 134/87
== END 2018-12-24 09:20 | disposition home or self-care (01) ==
LOC: 5TH 08:09 → II 08:09
PROVIDERS: ATTEND Internal Medicine
PROC: 3E033GC Introduction of Other Therapeutic Substance into Peripheral Vein, Percutaneous Approach (ICD-10-PCS; principal; 2018-12-24)
DX: D50.9 Iron deficiency anemia, unspecified (principal); K90.9 Intestinal malabsorption, unspecified
CPT/HCPCS: 96365; Q0138; J7050

== ENCOUNTER 2019-02-02 20:03 | Emergency (ER) | payer BC ==
[2019-02-02] MEDS ORDERED: NORMAL SALINE 1000 ML 2,000 ML IV ONE (20:13)
[2019-02-02] MEDS ORDERED: ONDANSETRON HCL INJ/PF 4 MG/2 ML SDV IV ONE (20:15)
--- NOTE | 2019-02-02 20:17 | ER Document Report ---
ED Medical Screen (RME) - General Chief Complaint: High Blood Sugar Stated Complaint: HIGH BLOOD SUGAR Time Seen by Provider: 02/02/19 20:08 Primary Care Provider: CHAD OROZCO MD [Primary Care Provider] - Follow up as needed Notes: Patient is a 28-year-old insulin-dependent diabetic female who presents to the emergency department with a chief complaint of high blood sugars. Patient also states that she feels nauseated. Patient states that she has a little bit of abdominal pain in her left upper quadrant. Patient states that she got a new Lantus pen and gave herself 30 units, but her Lantus pen was accidentally left in her car. She is unsure of whether or not it is not working due to the heat. Exam: Mildly tender mid upper abdomen. Blood sugar 460 and 490. I have greeted and performed a rapid initial assessment of this patient. A comprehensive ED assessment and evaluation of the patient, analysis of test results and completion of medical decision making process will be conducted by an additional ED providers. TRAVEL OUTSIDE OF THE [place] IN LAST 30 DAYS: No - Related Data Allergies/Adverse Reactions: No Known Allergies Allergy (Verified 12/14/18 20:20) Past Medical History - Social History Family history: Reviewed & Not Pertinent Endocrine Medical History: Reports: Hx Diabetes Mellitus Type 1, Hx Diabetes Mellitus Type 2 Renal/ Medical History: Denies: Hx Peritoneal Dialysis Past Surgical History: Reports: Hx Section - x2, Hx Tubal Ligation - Immunizations Immunizations up to date: Yes Hx Diphtheria, Pertussis, Tetanus Vaccination: Yes Physical Exam - Vital signs Vitals: Temp Pulse Resp BP Pulse Ox 98.6 F 89 18 143/91 H 99 02/02/19 20:06 02/02/19 20:06 02/02/19 20:06 02/02/19 20:06 02/02/19 20:06 Course - Vital Signs Vital signs: Temp Pulse Resp BP Pulse Ox 98.6 F 89 18 143/91 H 99 02/02/19 20:06 02/02/19 20:06 02/02/19 20:06 02/02/19 20:06 02/02/19 20:06 Doctor's Discharge - Discharge Referrals: CHAD OROZCO MD [Primary Care Provider] - Follow up as needed
[2019-02-02 20:49] LABS: APPEARANCE,URINE CLEAR; BILIRUBIN,URINE NEGATIVE (NEGATIVE); COLOR,URINE COLORLESS; GLUCOSE, URINE >=1000 mg/dL (NEGATIVE); KETONES,URINE NEGATIVE (NEGATIVE); LEUKOCYTE ESTERASE,URINE NEGATIVE (NEGATIVE); NITRITE,URINE NEGATIVE (NEGATIVE); PROTEIN,URINE NEGATIVE (NEGATIVE); URINE SPECIFIC GRAVITY 1.033; UROBILINOGEN,URINE NEGATIVE mg/dL (<2.0)
[2019-02-02 20:58] LABS: ABSOLUTE BASOPHILS # (AUTO) 0.1 10^3/uL (0.0-0.2); ABSOLUTE EOSINOPHILS # (AUTO) 0.1 10^3/uL (0.0-0.6); ABSOLUTE LYMPHOCYTES (AUTO) 2.4 10^3/uL (0.5-4.7); ABSOLUTE MONOCYTES (AUTO) 0.3 10^3/uL (0.1-1.4); ABSOLUTE NEUT (AUTO) 2.7 10^3/uL (1.7-8.2); BASOPHILS % (AUTO) 1.3 % (0-2); HEMATOCRIT 39.3 % (36.0-47.0); HEMOGLOBIN 12.7 g/dL (12.0-15.5); LYMPHOCYTES % (AUTO) 42.9 % (13-45); MEAN CORPUSCULAR HEMOGLOBIN 26.4 pg (27.0-33.4); MEAN CORPUSCULAR HGB CONC 32.2 g/dL (32.0-36.0); MEAN CORPUSCULAR VOLUME 82 fl (80-97); MONOCYTES % (AUTO) 6.1 % (3-13); PLATELET COUNT 316 10^3/uL (150-450); RED BLOOD COUNT 4.79 10^6/uL (3.72-5.28); RED CELL DISTRIBUTION WIDTH 16.4 % (11.5-14.0); SEGMENTED NEUTROPHILS % (AUTO) 47.7 % (42-78); TOTAL CELLS COUNTED % (AUTO) 100 %; WHITE BLOOD COUNT 5.6 10^3/uL (4.0-10.5)
[2019-02-02 21:06] LABS: VENOUS BLOOD PCO2 52.5 mmHg (35-63); VENOUS BLOOD PH 7.31 (7.30-7.42)
[2019-02-02 21:23] LABS: ALBUMIN 4.5 g/dL (3.5-5.0); ALKALINE PHOSPHATASE 93 U/L (38-126); ANION GAP 13 (5-19); ASPARTATE AMINO TRANSFERASE 33 U/L (14-36); BILIRUBIN,DIRECT 0.4 mg/dL (0.0-0.4); BILIRUBIN,TOTAL 0.6 mg/dL (0.2-1.3); BLOOD UREA NITROGEN 9 mg/dL (7-20); CALCIUM 10.1 mg/dL (8.4-10.2); CARBON DIOXIDE 23 mmol/L (22-30); CHLORIDE 99 mmol/L (98-107); CREATINE KINASE 88 U/L (30-135)
[2019-02-02 21:33] LABS: GLUCOSE 442 mg/dL (75-110)
[2019-02-02] MEDS ORDERED: INSULIN REG, HUMAN 100 UNIT/ML 3 ML VIAL (PYX) SUBCUT ONE (21:39)
[2019-02-02] MEDS ORDERED: RINGERS SOLUTION,LACTATED 1,000 ML IV ONE (21:39)
--- NOTE | 2019-02-02 22:16 | ER Document Report ---
ED Blood Sugar Problem - General Chief Complaint: High Blood Sugar Stated Complaint: HIGH BLOOD SUGAR Time Seen by Provider: 02/02/19 20:08 Primary Care Provider: CHAD OROZCO MD [Primary Care Provider] - Follow up as needed Notes: RME NOTE: Patient is a 28-year-old insulin-dependent diabetic female who [facility] with a chief complaint of high blood sugars. Patient also states that she feels nauseated. Patient states that she has a little bit of abdominal pain in her left upper quadrant. Patient states that she got a new Lantus pen and gave herself 30 units, but her Lantus pen was accidentally left in her car. She is unsure of whether or not it is not working due to the heat. MY HPI: Patient voices she is no longer nauseous but does admit to "generalized nausea all the time." Patient also voices to "itchy vaginal discharge". Patient voices she typically does get yeast infections when her sugars get "high." Patient is wishing to refuse any sort of pelvic exam at this time. I discussed my concerns of prophylactically treating her for a yeast as this may also be a bacterial vaginosis infection. Patient continues to decline pelvic exam. States she will follow up with PCP tomorrow. States she does not have any money and would not like her insulin refilled. States her primary care provider typically gets it to her for free. No pain noted upon examination of abdomen. TRAVEL OUTSIDE OF THE [place] IN LAST 30 DAYS: No - Related Data Allergies/Adverse Reactions: No Known Allergies Allergy (Verified 12/14/18 20:20) Home Medications: Humalog. Lantus Past Medical History - General Information source: Patient - Social History Smoking Status: Never Smoker Chew tobacco use (# tins/day): No Frequency of alcohol use: Rare Drug Abuse: None Family History: CAD, CVA, DM, Hypertension, Malignancy Patient has suicidal ideation: No Patient has homicidal ideation: No Endocrine Medical History: Reports: Hx Diabetes Mellitus Type 1, Hx Diabetes Mellitus Type 2 Renal/ Medical History: Denies: Hx Peritoneal Dialysis Past Surgical History: Reports: Hx Section - x2, Hx Tubal Ligation - Immunizations Immunizations up to date: Yes Hx Diphtheria, Pertussis, Tetanus Vaccination: Yes Review of Systems - Review of Systems Constitutional: denies: Fever EENT: No symptoms reported Cardiovascular: No symptoms reported Respiratory: No symptoms reported Gastrointestinal: See HPI Genitourinary: See HPI Female Genitourinary: See HPI Musculoskeletal: No symptoms reported Skin: No symptoms reported Hematologic/Lymphatic: No symptoms reported Neurological/Psychological: No symptoms reported Physical Exam - Vital signs Vitals: Temp Pulse Resp BP Pulse Ox 98.6 F 89 18 143/91 H 99 02/02/19 20:06 02/02/19 20:06 02/02/19 20:06 02/02/19 20:06 02/02/19 20:06 - Notes Notes: GENERAL: Alert, interacts well. No acute distress. HEAD: Normocephalic, atraumatic. EYES: Pupils equal, round, and reactive to light. Extraocular movements intact. ENT: Oral mucosa moist, tongue midline. NECK: Full range of motion. Supple. Trachea midline. LUNGS: Clear to auscultation bilaterally, no wheezes, rales, or rhonchi. No respiratory distress. HEART: Regular rate and rhythm. No murmur ABDOMEN: Soft, non-tender. Non-distended. Bowel sounds present in all 4 quadrants. EXTREMITIES: Moves all 4 extremities spontaneously. No edema, normal radial and dorsalis pedis pulses bilaterally. No cyanosis. BACK: no cervical, thoracic, lumbar midline tenderness. No saddle anesthesia, normal distal neurovascular exam. NEUROLOGICAL: Alert and oriented x3. Normal speech. cranial nerves II through XII grossly intact. PSYCH: Normal affect, normal mood. SKIN: Warm, dry, normal turgor. No rashes or lesions noted. Course - Re-evaluation Re-evalutation: 02/02/19 22:14 Laboratory 02/02/19 02/02/19 02/02/19 20:25 20:45 20:45 WBC 5.6 RBC 4.79 Hgb 12.7 Hct 39.3 MCV 82 MCH 26.4 L MCHC 32.2 RDW 16.4 H Plt Count 316 Lymph % (Auto) 42.9 Simpson % (Auto) 6.1 Eos % (Auto) 2.0 Baso % (Auto) 1.3 Absolute Neuts (auto) 2.7 Absolute Lymphs (auto) 2.4 Absolute Monos (auto) 0.3 Absolute Eos (auto) 0.1 Absolute Basos (auto) 0.1 Seg Neutrophils % 47.7 VBG pH VBG pCO2 VBG HCO3 VBG Base Excess Sodium 135.4 L Potassium 4.0 Chloride 99 Carbon Dioxide 23 Anion Gap 13 BUN 9 Creatinine 0.59 Est GFR ( Amer) > 60 Est GFR (MDRD) Non-Af > 60 Glucose 442 H* Calcium 10.1 Total Bilirubin 0.6 Direct Bilirubin 0.4 Neonat Total Bilirubin Not Reportable Neonat Direct Bilirubin Not Reportable Neonat Indirect Bili Not Reportable AST 33 ALT 34 Alkaline Phosphatase 93 Creatine Kinase 88 CK-MB (CK-2) Total Protein 8.0 Albumin 4.5 Serum HCG, Qual Urine Color COLORLESS Urine Appearance CLEAR Urine pH 6.0 Ur Specific [place] 1.033 Urine Protein NEGATIVE Urine Glucose (UA) >=1000 H Urine Ketones NEGATIVE Urine Blood SMALL H Urine Nitrite NEGATIVE Urine Bilirubin NEGATIVE Urine Urobilinogen NEGATIVE Ur Leukocyte Esterase NEGATIVE Urine WBC (Auto) 3 Urine RBC (Auto) 1 Urine Bacteria (Auto) TRACE Squamous Epi Cells Auto <1 Urine Ascorbic Acid NEGATIVE 02/02/19 02/02/19 02/02/19 20:45 20:45 20:45 WBC RBC Hgb Hct MCV MCH MCHC RDW Plt Count Lymph % (Auto) Simpson % (Auto) Eos % (Auto) Baso % (Auto) Absolute Neuts (auto) Absolute Lymphs (auto) Absolute Monos (auto) Absolute Eos (auto) Absolute Basos (auto) Seg Neutrophils % VBG pH 7.31 VBG pCO2 52.5 VBG HCO3 26.0 VBG Base Excess -1.0 Sodium Potassium Chloride Carbon Dioxide Anion Gap BUN Creatinine Est GFR ( Amer) Est GFR (MDRD) Non-Af Glucose Calcium Total Bilirubin Direct Bilirubin Neonat Total Bilirubin Neonat Direct Bilirubin Neonat Indirect Bili AST ALT Alkaline Phosphatase Creatine Kinase CK-MB (CK-2) 0.26 Total Protein Albumin Serum HCG, Qual NEGATIVE Urine Color Urine Appearance Urine pH Ur Specific [place] Urine Protein Urine Glucose (UA) Urine Ketones Urine Blood Urine Nitrite Urine Bilirubin Urine Urobilinogen Ur Leukocyte Esterase Urine WBC (Auto) Urine RBC (Auto) Urine Bacteria (Auto) Squamous Epi Cells Auto Urine Ascorbic Acid Patient's labs do reveal hyperglycemia with no signs of acidosis. Patient was given 2 L of fluid in the emergency department as well as subcu insulin. I discussed with patient her need to keep a close eye on her sugars in the next 12 to 24 hours. Of also discussed replacing her insulin as she feels as though "it does not work anymore because I left it in my car." Patient again voices she will not get insulin filled because she "has no money." I have placed a social work consult and for this patient to assess for needs. Patient continues to decline pelvic exam. Repeat abdominal examination reveals no pain. Patient's sugars are downtrending. Patient stable for discharge. - Vital Signs Vital signs: Temp Pulse Resp BP Pulse Ox 98.6 F 89 18 143/91 H 99 02/02/19 20:06 02/02/19 20:06 02/02/19 20:06 02/02/19 20:06 02/02/19 20:06 - Laboratory Result Diagrams: 02/02/19 20:45 02/02/19 20:45 Laboratory results interpreted by me: 02/02/19 02/02/19 02/02/19 20:25 20:45 20:45 MCH 26.4 L RDW 16.4 H Sodium 135.4 L Glucose 442 H* Urine Glucose (UA) >=1000 H Urine Blood SMALL H Discharge - Discharge Clinical Impression: Hyperglycemia Condition: Stable Disposition: HOME, SELF-CARE Instructions: Hyperglycemia ([facility]) Additional Instructions: As we discussed you have been seen and treated in the emergency department for an elevation in your blood sugars. There does not appear to be any signs of diabetic ketoacidosis on your labs. Is very important that you keep a close eye on your sugars for the next 12 to 24 hours. Is also very important you follow- up with your primary care provider to get your insulin refilled. Please immediately return to the emergency room should you have any concerns. Forms: Return to Work Referrals: CHAD OROZCO MD [Primary Care Provider] - Follow up as needed [facility] [Provider Group] - Follow up as needed [facility] [Provider Group] - Follow up as needed
[2019-02-02 23:41] VITALS: BP 113/71
== END 2019-02-02 23:43 | disposition home or self-care (01) ==
LOC: ER 20:03
DX: E11.65 Type 2 diabetes mellitus with hyperglycemia (principal); Z79.4 Long term (current) use of insulin; R11.0 Nausea; N89.8 Other specified noninflammatory disorders of vagina; Z98.51 Tubal ligation status; Z59.8 Other problems related to housing and economic circumstances
CPT/HCPCS: 36415; 82553; 82962; 82550; 84703; 85025; 80053; 81001; 82803; J1815; J2405; J7030; J7120

== ENCOUNTER 2019-02-25 19:51 | Emergency (ER) | payer BC ==
[2019-02-25] MEDS ORDERED: RINGERS SOLUTION,LACTATED 1,000 ML IV ONE (21:21)
--- NOTE | 2019-02-25 21:22 | ER Document Report ---
ED Medical Screen (RME) - General Chief Complaint: Neck Problem Stated Complaint: NECK PAIN,DIFFICULTY BREATHING Time Seen by Provider: 02/25/19 21:11 Primary Care Provider: CHAD OROZCO MD [Primary Care Provider] - Follow up as needed Notes: Patient is a 28-year-old female history of diabetes presents to the emergency department with left anterior neck pain. Patient also voices to a generalized toothache. Patient also voices she feels "lightheaded." Thinks her sugars are "off." Patient's denying any nausea, vomiting, diarrhea, abdominal pain. States that times it is hard for her to take a deep breath. GENERAL: Alert, interacts well. No acute distress. HEAD: Normocephalic, atraumatic. LUNGS: Clear to auscultation bilaterally, no wheezes, rales, or rhonchi. No respiratory distress. I have greeted and performed a rapid initial assessment of this patient. A comprehensive ED assessment and evaluation of the patient, analysis of test results and completion of the medical decision making process will be conducted by additional ED providers. I have specifically instructed the patient or family members with the patient to immediately return to any nursing staff should anything change in the patient's condition or with their chief complaint. This medical record was dictated with voice recognizing software. There may be grammatical, syntax errors that are unintended. TRAVEL OUTSIDE OF THE [place] IN LAST 30 DAYS: No - Related Data Allergies/Adverse Reactions: No Known Allergies Allergy (Verified 02/25/19 21:00) Past Medical History - Social History Frequency of alcohol use: None Drug Abuse: None Family history: Reviewed & Not Pertinent Endocrine Medical History: Reports: Hx Diabetes Mellitus Type 1, Hx Diabetes Mellitus Type 2 Renal/ Medical History: Denies: Hx Peritoneal Dialysis Past Surgical History: Reports: Hx Section - x2, Hx Tubal Ligation - Immunizations Immunizations up to date: Yes Hx Diphtheria, Pertussis, Tetanus Vaccination: Yes Physical Exam - Vital signs Vitals: Temp Pulse Resp BP Pulse Ox 98.8 F 72 18 132/89 H 100 02/25/19 20:17 02/25/19 20:17 02/25/19 20:17 02/25/19 20:17 02/25/19 20:17 Course - Vital Signs Vital signs: Temp Pulse Resp BP Pulse Ox 98.8 F 72 18 132/89 H 100 02/25/19 20:17 02/25/19 20:17 02/25/19 20:17 02/25/19 20:17 02/25/19 20:17 Doctor's Discharge - Discharge Referrals: CHAD OROZCO MD [Primary Care Provider] - Follow up as needed
--- NOTE | 2019-02-25 22:17 | RADIOLOGY REPORT (SQ) ---
XR CHEST 2 VIEWS EXAM DATE: 02/25/2019 9:22 PM [employer]RAF[employer] ASSISTANT HISTORY: SOB. COMPARISON: 03/21/2016 FINDINGS: The heart size is within normal limits. No consolidation, pleural effusion, or pneumothorax is seen. No acute bony findings. IMPRESSION: No acute cardiopulmonary disease.
[2019-02-25 22:50] LABS: ABSOLUTE EOSINOPHILS # (AUTO) 0.1 10^3/uL (0.0-0.6); ABSOLUTE LYMPHOCYTES (AUTO) 2.3 10^3/uL (0.5-4.7); ABSOLUTE MONOCYTES (AUTO) 0.4 10^3/uL (0.1-1.4); ABSOLUTE NEUT (AUTO) 2.5 10^3/uL (1.7-8.2); BASOPHILS % (AUTO) 0.7 % (0-2); EOSINOPHILS % (AUTO) 1.7 % (0-6); HEMATOCRIT 40.4 % (36.0-47.0); HEMOGLOBIN 13.6 g/dL (12.0-15.5); LYMPHOCYTES % (AUTO) 43.3 % (13-45); MEAN CORPUSCULAR HEMOGLOBIN 27.4 pg (27.0-33.4); MEAN CORPUSCULAR HGB CONC 33.8 g/dL (32.0-36.0); MEAN CORPUSCULAR VOLUME 81 fl (80-97); MONOCYTES % (AUTO) 7.4 % (3-13); PLATELET COUNT 288 10^3/uL (150-450); RED BLOOD COUNT 4.99 10^6/uL (3.72-5.28); RED CELL DISTRIBUTION WIDTH 15.8 % (11.5-14.0); SEGMENTED NEUTROPHILS % (AUTO) 46.9 % (42-78); TOTAL CELLS COUNTED % (AUTO) 100 %; WHITE BLOOD COUNT 5.4 10^3/uL (4.0-10.5)
[2019-02-25 22:52] LABS: APPEARANCE,URINE CLEAR; BILIRUBIN,URINE NEGATIVE (NEGATIVE); COLOR,URINE YELLOW; GLUCOSE, URINE >=500 mg/dL (NEGATIVE); KETONES,URINE NEGATIVE (NEGATIVE); LEUKOCYTE ESTERASE,URINE NEGATIVE (NEGATIVE); NITRITE,URINE POSITIVE (NEGATIVE); PROTEIN,URINE NEGATIVE (NEGATIVE); URINE SPECIFIC GRAVITY 1.032; UROBILINOGEN,URINE NEGATIVE mg/dL (<2.0)
[2019-02-25] MEDS ORDERED: METHOCARBAMOL 750 MG TABLET PO ONE (22:57)
[2019-02-25 23:08] LABS: ALBUMIN 4.4 g/dL (3.5-5.0); ALKALINE PHOSPHATASE 89 U/L (38-126); ANION GAP 11 (5-19); ASPARTATE AMINO TRANSFERASE 31 U/L (14-36); BILIRUBIN,DIRECT 0.1 mg/dL (0.0-0.4); BILIRUBIN,TOTAL 0.5 mg/dL (0.2-1.3); BLOOD UREA NITROGEN 9 mg/dL (7-20); CALCIUM 9.9 mg/dL (8.4-10.2); CARBON DIOXIDE 26 mmol/L (22-30); CHLORIDE 99 mmol/L (98-107); GLUCOSE 351 mg/dL (75-110); POTASSIUM 3.9 mmol/L (3.6-5.0); TOTAL PROTEIN 8.1 g/dL (6.3-8.2)
--- NOTE | 2019-02-25 23:09 | ER Document Report ---
ED General - General Chief Complaint: Neck Problem Stated Complaint: NECK PAIN,DIFFICULTY BREATHING Time Seen by Provider: 02/25/19 21:11 Primary Care Provider: CHAD OROZCO MD [Primary Care Provider] - Follow up as needed Notes: 28-year-old female presents emergency department complaining of left-sided neck pain onset today that is anterolateral and worsens when looking up, turning away from the left side and pushing on it. Denies any difficulty swallowing although she does sometimes have pain with swallowing. Denies foreign body sensation in her throat or sensation of swelling internally. Denies any external swelling as well. Denies fevers but admits sweats. Patient states that she thought it might be due to a toothache she had last week that has completely self resolved. Patient also complains of acute on chronic shortness of breath that she is always attributed to her low iron however it has been more constant for the past several days and is now associated with increasing dyspnea on exertion that requires her to sit and rest. Patient also states that she is an insulin-dependent diabetic who sugar always runs in the 400s, she is aware of this and states that she does not like it when her sugar goes down to the 2 or 300s because then she feels sick. TRAVEL OUTSIDE OF THE [place] IN LAST 30 DAYS: No - Related Data Allergies/Adverse Reactions: No Known Allergies Allergy (Verified 02/25/19 21:00) Past Medical History - General Information source: Patient - Social History Smoking Status: Former Smoker Frequency of alcohol use: Social Drug Abuse: None Family History: CAD, CVA, DM, Hypertension, Malignancy Patient has suicidal ideation: No Patient has homicidal ideation: No Endocrine Medical History: Reports: Hx Diabetes Mellitus Type 1, Hx Diabetes Mellitus Type 2 Renal/ Medical History: Denies: Hx Peritoneal Dialysis Past Surgical History: Reports: Hx Section - x2, Hx Tubal Ligation - Immunizations Immunizations up to date: Yes Hx Diphtheria, Pertussis, Tetanus Vaccination: Yes Review of Systems - Review of Systems Constitutional: See HPI, Diaphoresis. denies: Fever EENT: See HPI Cardiovascular: See HPI - Dyspnea on exertion Respiratory: See HPI Gastrointestinal: No symptoms reported Musculoskeletal: See HPI, Neck pain -: Yes All other systems reviewed and negative Physical Exam - Vital signs Vitals: Temp Pulse Resp BP Pulse Ox 98.8 F 72 18 132/89 H 100 02/25/19 20:17 11/20/19 20:17 02/25/19 20:17 02/25/19 20:17 02/25/19 20:17 Interpretation: Normal - Notes Notes: GENERAL: Alert, interacts well. No acute distress. HEAD: Normocephalic, atraumatic EYES: Pupils equal, round and reactive to light, extraocular movements intact. ENT: Oral mucosa moist, tongue midline. Nares patent, no nasal septal hematoma, TMs intact. No swelling in the posterior oropharynx. NECK: Full range of motion, supple, trachea midline. Able to move through full range of motion however she has tenderness on palpation across the left sternocleidomastoid muscle, no enlarged lymph nodes are palpated, she does have increasing pain with rotation of the neck to the right, no pain with rotation of the neck to the left, no pain with flexion or extension. LUNGS: Clear to auscultation bilaterally, no wheezes, rales or rhonchi, no respiratory distress. HEART: Regular rate and rhythm, no murmurs, gallops, rubs. ABDOMEN: Soft, nontender, nondistended, bowel sounds present in all 4 quadrants. EXTREMITIES: Moves all 4 extremities spontaneously, no edema, radial and dorsalis pedis pulses 2/4 bilaterally. No cyanosis. NEUROLOGICAL: Alert and oriented x3, normal speech. PSYCH: Normal mood, normal affect. SKIN: Warm, Dry, normal turgor, no rashes or lesions noted. Course - Re-evaluation Re-evalutation: 02/26/19 00:36 CBC unremarkable, CMP grossly unremarkable, has elevated glucose but she knows that she always runs in the 300s and has no desire to be lower than that, urinalysis shows glucose but no ketones she does have positive nitrites, she has no urinary symptoms, this appears to be asymptomatic bacteriuria, we will not treat, test is negative, chest x-ray is negative. Symptoms are completely reproducible on palpation of the left sternocleidomastoid muscle. A very low suspicion for infection in the neck, no suspicion for peritonsillar abscess. No suspicion for retropharyngeal abscess. Patient was treated with Robaxin for muscle spasm, approximately 30 minutes to an hour after receiving this she developed a red itchy rash across her chest which is raised, patient will be given Pepcid, Benadryl and Solu-Medrol for apparent allergic reaction and observe to make sure this resolves. We will change her to Flexeril for use at home. 02/26/19 01:46 Rash has resolved, no difficulty breathing. Discharged home. - Vital Signs Vital signs: Temp Pulse Resp BP Pulse Ox 98.8 F 72 18 132/89 H 100 02/25/19 20:17 02/25/19 20:17 02/25/19 20:17 02/25/19 20:17 02/25/19 20:17 - Laboratory Result Diagrams: 02/25/19 22:30 02/25/19 22:30 Laboratory results interpreted by me: 02/25/19 02/25/19 02/25/19 22:30 22:30 22:30 RDW 15.8 H Sodium 135.6 L Creatinine 0.51 L Glucose 351 H Urine Glucose (UA) >=500 H Urine Nitrite POSITIVE H Discharge - Discharge Clinical Impression: Strain of sternocleidomastoid muscle Qualifiers: Encounter type: initial encounter Qualified Code(s): S16.1XXA - Strain of muscle, fascia and tendon at neck level, initial encounter Hyperglycemia due to type 2 diabetes mellitus Qualifiers: Diabetes mellitus bicycle repairer insulin use: with mcc use Qualified Code(s): E11.65 - Type 2 diabetes mellitus with hyperglycemia; Z79.4 - detention (current) use of insulin Allergic reaction caused by a drug Qualifiers: Encounter type: initial encounter Qualified Code(s): T78.40XA - Allergy, unspecified, initial encounter Condition: Stable Disposition: HOME, SELF-CARE Additional Instructions: Please take the Flexeril as directed for the pain in the sternocleidomastoid muscle in your neck. If your pain worsens, you develop fever, you develop difficulty swallowing or any new or concerning symptoms I want you to return to the emergency department immediately. You do not have any anemia. Your blood sugar is elevated. I do not know exactly why you are having increasing shortness of breath when you walk around. Your oxygen level and heart rate stayed normal here. Please follow-up with your primary care physician for further evaluation of your decreased exercise tolerance. You had an allergic reaction to Robaxin, this is also known as methocarbamol. Please do not ever take this again. You may take Benadryl and Pepcid as directed on the box to decrease any itching that she may continue to have. Prescriptions: Cyclobenzaprine HCl [Flexeril 10 mg Tablet] 10 mg PO TIDP PRN #15 tab PRN Reason: Referrals: CHAD OROZCO MD [Primary Care Provider] - Follow up as needed
[2019-02-26] MEDS ORDERED: DIPHENHYDRAMINE HCL 50 MG/ML VIAL IM ONE (00:28)
[2019-02-26] MEDS ORDERED: FAMOTIDINE INJ/PF 20 MG/2 ML SDV IV ONE (00:35)
[2019-02-26] MEDS ORDERED: DIPHENHYDRAMINE HCL 50 MG/ML VIAL IV ONE (00:35)
[2019-02-26] MEDS ORDERED: METHYLPREDNISOLONE INJ 125 MG/2 ML SDV IV ONE (00:35)
[2019-02-26 02:33] VITALS: BP 109/78
== END 2019-02-26 02:05 | disposition home or self-care (01) ==
LOC: ER 19:51
DX: S16.1XXA Strain of muscle, fascia and tendon at neck level, initial encounter (principal); T78.40XA Allergy, unspecified, initial encounter; X58.XXXA Exposure to other specified factors, initial encounter; R06.00 Dyspnea, unspecified; E11.65 Type 2 diabetes mellitus with hyperglycemia; Z79.4 Long term (current) use of insulin
CPT/HCPCS: 99283; 96374; 96375; 36415; 82962; 85025; 81025; 80053; 81001; 71046; J1200; J3490; J2930; S0028

== ENCOUNTER 2019-03-19 08:10 | Emergency (ER) | payer BC ==
[2019-03-19 09:29] LABS: APPEARANCE,URINE CLEAR; BILIRUBIN,URINE NEGATIVE (NEGATIVE); COLOR,URINE STRAW; GLUCOSE, URINE >=500 mg/dL (NEGATIVE); KETONES,URINE NEGATIVE (NEGATIVE); LEUKOCYTE ESTERASE,URINE NEGATIVE (NEGATIVE); NITRITE,URINE NEGATIVE (NEGATIVE); PROTEIN,URINE NEGATIVE (NEGATIVE); URINE SPECIFIC GRAVITY 1.028; UROBILINOGEN,URINE NEGATIVE mg/dL (<2.0)
[2019-03-19] MEDS ORDERED: NORMAL SALINE 1000 ML 1,000 ML IV ONE (10:20)
--- NOTE | 2019-03-19 10:22 | ER Document Report ---
ED Medical Screen (RME) - General Chief Complaint: Vaginal Bleeding Stated Complaint: BLEED IN URINE/RASH/RIGHT SIDE PAIN Time Seen by Provider: 03/19/19 10:03 Primary Care Provider: CHAD OROZCO MD [Primary Care Provider] - Follow up as needed TRAVEL OUTSIDE OF THE [place] IN LAST 30 DAYS: No - HPI Notes: 03/19/19 10:21 28 year old IDDM to the ED with C/O right flank pain, blood in her urine for several days. Also admits to a painful rash to her vaginal and rectal region. Denies hx of kidney stones, but admits to frequent UTI. Admits to general malaise. Denies fevers, chills, chest pain, SOB. I have performed a brief medical screening exam on the patient and determined she will need further evaluation and management by mainside provider. - Related Data Allergies/Adverse Reactions: methocarbamol Allergy (Verified 03/19/19 08:45) Past Medical History - Social History Chew tobacco use (# tins/day): No Frequency of alcohol use: Occasional Drug Abuse: None Family history: Reviewed & Not Pertinent Endocrine Medical History: Reports: Hx Diabetes Mellitus Type 1, Hx Diabetes Mellitus Type 2 Renal/ Medical History: Denies: Hx Peritoneal Dialysis Past Surgical History: Reports: Hx Section - x2, Hx Tubal Ligation - Immunizations Immunizations up to date: Yes Hx Diphtheria, Pertussis, Tetanus Vaccination: Yes Physical Exam - Vital signs Vitals: Temp Pulse Resp BP Pulse Ox 98.2 F 94 16 131/86 H 100 03/19/19 08:14 03/19/19 08:14 03/19/19 08:14 03/19/19 08:14 03/19/19 08:14 Course - Vital Signs Vital signs: Temp Pulse Resp BP Pulse Ox 98.2 F 94 16 131/86 H 100 03/19/19 08:32 03/19/19 08:32 03/19/19 08:32 03/19/19 08:32 03/19/19 08:32 - Laboratory Laboratory results interpreted by me: 03/19/19 08:50 Urine Glucose (UA) >=500 H Doctor's Discharge - Discharge Referrals: CHAD OROZCO MD [Primary Care Provider] - Follow up as needed
[2019-03-19] MEDS ORDERED: KETOROLAC TROMETHAMINE INJ/PF 30 MG/1 ML SDV IV ONE (10:49)
--- NOTE | 2019-03-19 10:53 | ER Document Report ---
ED General - General Chief Complaint: Vaginal Bleeding Stated Complaint: BLEED IN URINE/RASH/RIGHT SIDE PAIN Time Seen by Provider: 03/19/19 10:03 Primary Care Provider: CHAD OROZCO MD [Primary Care Provider] - Follow up as needed TRAVEL OUTSIDE OF THE [place] IN LAST 30 DAYS: No - HPI Notes: Patient is a 28-year-old female, insulin-dependent diabetic, who presents emergency department for evaluation of pain in the right flank, dysuria, and a rash in her vaginal and rectal region. She states that she has had pain in her right flank for about a week. She describes it as a soreness, rates it a 4 out of 5. She states is worsened by palpation. She also believes a somewhat wor sened by urination. She states she has had some dysuria and thinks she saw her blood in her urine starting yesterday. She describes a pressure sensation with urination as well. She has had vaginal discharge and this rash in this area, although she really can give me timing of the rash. She only noticed in the last several days, but states has been avoiding sex because of a discomfort in that region for "a while." She cannot elaborate for me. She denies any fevers, states she has had some chills. She said nausea but no emesis. She states her blood sugar has been in the high 300s, which she states is relatively well- controlled for her. - Related Data Allergies/Adverse Reactions: methocarbamol Allergy (Verified 03/19/19 08:45) Home Medications: Lantus 30 units at night, sliding scale Humalog during the day Past Medical History - General Information source: Patient - Social History Smoking Status: Never Smoker Chew tobacco use (# tins/day): No Frequency of alcohol use: Occasional Drug Abuse: None Family History: CAD, CVA, DM, Hypertension, Malignancy Patient has suicidal ideation: No Patient has homicidal ideation: No Endocrine Medical History: Reports: Hx Diabetes Mellitus Type 1 Renal/ Medical History: Denies: Hx Peritoneal Dialysis Past Surgical History: Reports: Hx Section - x2, Hx Tubal Ligation - Immunizations Immunizations up to date: Yes Hx Diphtheria, Pertussis, Tetanus Vaccination: Yes Review of Systems - Review of Systems Constitutional: See HPI EENT: No symptoms reported Cardiovascular: No symptoms reported Respiratory: No symptoms reported Gastrointestinal: See HPI Genitourinary: See HPI Female Genitourinary: See HPI Musculoskeletal: See HPI Skin: No symptoms reported Neurological/Psychological: No symptoms reported Physical Exam - Vital signs Vitals: Temp Pulse Resp BP Pulse Ox 98.2 F 94 16 131/86 H 100 03/19/19 08:14 03/19/19 08:14 03/19/19 08:14 03/19/19 08:14 03/19/19 08:14 - Notes Notes: Vital signs reviewed, please refer to chart. Head is normocephalic, atraumatic. Pupils equal round, reactive to light. Neck is supple without meningismus. Heart is regular rate and rhythm. Lungs are clear to auscultation bilaterally. Abdomen is soft, minimal suprapubic tenderness without rebound or guarding, normoactive bowel sounds throughout. No CVA tenderness. Examination of the spine is no midline tenderness or step-off. No paraspinal musculature tenderness is appreciated. Extremities without cyanosis, clubbing. Posterior calves are nontender. Peripheral pulses are equal. Skin is warm and dry. Patient is awake, alert, neurological exam is nonfocal. Pelvic exam was performed with KERRY Cárdenas, as high school physical education teacher. She does have a well demarcated erythematous and moist rash consistent with Sarah noted in the intertriginous regions of the groin and rectal areas. Scant amount of discharge, consistent with yeast, noted. No cervical motion tenderness. Course - Re-evaluation Re-evalutation: 03/19/19 12:15 Patient presents emergency department for evaluation of right flank pain, dysuria, and rash in the inguinal region. Her urine fails revealing signs of infection. Awaiting ultrasound, but I do not have a high suspicion of significant nephrolithiasis or infection causing her symptoms. Will be treated as musculoskeletal with pghe-cbx-[id number] anti-inflammatories. In regards to the rash in her genital region, I do suspect a Sarah etiology. She will be treated with nystatin topically. She is given Diflucan secondary to the discharge. She is told if her symptoms persist she may need [id number]-[id number] treatment such as Monistat. She voiced understanding. She is to follow-up with primary care, return to the ED with worsening or new concerning symptoms of any sort. 03/19/19 12:50 Ultrasound unremarkable. Patient will be sent with instructions as earlier discussed. - Vital Signs Vital signs: Temp Pulse Resp BP Pulse Ox 98.4 F 81 16 131/88 H 99 03/19/19 11:15 03/19/19 11:15 03/19/19 11:15 03/19/19 11:15 03/19/19 11:15 - Laboratory Result Diagrams: 03/19/19 10:53 03/19/19 10:53 Laboratory results interpreted by me: 03/19/19 03/19/19 03/19/19 08:50 10:53 10:53 RDW 14.5 H Sodium 134.5 L Chloride 95 L Creatinine 0.42 L Glucose 417 H* POC Glucose Calcium 11.1 H Total Protein 8.7 H Urine Glucose (UA) >=500 H 03/19/19 11:05 RDW Sodium Chloride Creatinine Glucose POC Glucose 379 H Calcium Total Protein Urine Glucose (UA) - Diagnostic Test Radiology reviewed: Reports reviewed Discharge - Discharge Clinical Impression: Vagina, candidiasis, Vulvar candidiasis, Hyperglycemia, Right flank pain Condition: Stable Disposition: HOME, SELF-CARE Instructions: Abdominal Pain ([facility]), Flank Pain ([facility]), Vaginal Yeast Infection ([facility]) Additional Instructions: Try to keep your sugar under control. Apply nystatin cream to the affected area. Tylenol or ibuprofen as needed for flank pain. If you continue to have vaginal discharge after 24 hours, obtain an zhra-mia-ptzztxp yeast medication, such as Monistat 3, and use as directed. Follow-up with your doctor next week. Return to the ED with worsening or new concerning symptoms of any sort. Referrals: CHAD OROZCO MD [Primary Care Provider] - Follow up as needed
[2019-03-19 11:04] LABS: ABSOLUTE BASOPHILS # (AUTO) 0.1 10^3/uL (0.0-0.2); ABSOLUTE EOSINOPHILS # (AUTO) 0.1 10^3/uL (0.0-0.6); ABSOLUTE LYMPHOCYTES (AUTO) 2.1 10^3/uL (0.5-4.7); ABSOLUTE MONOCYTES (AUTO) 0.4 10^3/uL (0.1-1.4); EOSINOPHILS % (AUTO) 1.1 % (0-6); HEMATOCRIT 41.4 % (36.0-47.0); HEMOGLOBIN 13.9 g/dL (12.0-15.5); LYMPHOCYTES % (AUTO) 31.9 % (13-45); MEAN CORPUSCULAR HEMOGLOBIN 27.2 pg (27.0-33.4); MEAN CORPUSCULAR HGB CONC 33.6 g/dL (32.0-36.0); MEAN CORPUSCULAR VOLUME 81 fl (80-97); MONOCYTES % (AUTO) 5.7 % (3-13); PLATELET COUNT 324 10^3/uL (150-450); RED BLOOD COUNT 5.13 10^6/uL (3.72-5.28); RED CELL DISTRIBUTION WIDTH 14.5 % (11.5-14.0); SEGMENTED NEUTROPHILS % (AUTO) 60.3 % (42-78); TOTAL CELLS COUNTED % (AUTO) 100 %; WHITE BLOOD COUNT 6.6 10^3/uL (4.0-10.5)
[2019-03-19 11:24] LABS: ALBUMIN 4.7 g/dL (3.5-5.0); ALKALINE PHOSPHATASE 107 U/L (38-126); ANION GAP 13 (5-19); ASPARTATE AMINO TRANSFERASE 35 U/L (14-36); BILIRUBIN,DIRECT 0.3 mg/dL (0.0-0.4); BILIRUBIN,TOTAL 0.8 mg/dL (0.2-1.3); BLOOD UREA NITROGEN 14 mg/dL (7-20); CALCIUM 11.1 mg/dL (8.4-10.2); CARBON DIOXIDE 27 mmol/L (22-30); CHLORIDE 95 mmol/L (98-107); POTASSIUM 4.8 mmol/L (3.6-5.0); TOTAL PROTEIN 8.7 g/dL (6.3-8.2)
[2019-03-19 11:35] LABS: GLUCOSE 417 mg/dL (75-110)
[2019-03-19] MEDS ORDERED: FLUCONAZOLE 100 MG TABLET PO ONE (12:14)
[2019-03-19] MEDS ORDERED: ACETAMINOPHEN 325 MG TABLET PO ONE (12:14)
[2019-03-19] MEDS ORDERED: ACETAMINOPHEN 325 MG TABLET ONE (12:21)
--- NOTE | 2019-03-19 12:22 | RADIOLOGY REPORT (SQ) ---
EXAM DESCRIPTION: U/S RETROPERITON (RENAL/AORTA) COMPLETED DATE/TIME: 03/19/2019 11:46 am REASON FOR STUDY: flank pain COMPARISON: 10/03/2018. TECHNIQUE: Dynamic and static grayscale images acquired of the kidneys and bladder and recorded on P ACS. Additional selected color Doppler and spectral images recorded. LIMITATIONS: None. FINDINGS: RIGHT KIDNEY: Normal size. Normal echogenicity. No solid or suspicious masses. No hydronep hrosis. No calcifications. LEFT KIDNEY: Normal size. Normal echogenicity. No solid or suspicious masses. No hydronephrosis. No calcifications. BLADDER: No masses. OTHER FINDINGS: No other significant finding. IMPRESSION: NORMAL RENAL AND BLADDER ULTRASOUND. TECHNICAL DOCUMENTATION: JOB ID: [id number] [employer]- All Rights Reserved Reading location - IP/workstation name: [email or web address]
[2019-03-19 12:48] LABS: BACTERIA (WET MOUNT) 4+ BACTERIA SEEN; EPITHELIALS (WET MOUNT) 3+ EPITHELIALS SEEN; RBCS (WET MOUNT) NO RBCS SEEN; T.VAGINALIS (WET MOUNT) TRICHOMONAS SEEN; WBCS (WET MOUNT) 1+ WBCS SEEN; YEAST (WET MOUNT) NO YEAST SEEN
[2019-03-19 13:37] VITALS: BP 120/80
== END 2019-03-19 13:42 | disposition home or self-care (01) ==
LOC: ER 08:10
DX: B37.3 Candidiasis of vulva and vagina (principal); E10.65 Type 1 diabetes mellitus with hyperglycemia; Z79.4 Long term (current) use of insulin; R10.9 Unspecified abdominal pain; R30.0 Dysuria
CPT/HCPCS: 36415; 87210; 82962; 85025; 81025; 80053; 81001; 76770; J1885; J7030; 96361; 96374; 99284

== ENCOUNTER 2019-09-20 16:54 | Emergency (ER) | payer BC ==
--- NOTE | 2019-09-20 17:26 | ER Document Report ---
ED Medical Screen (RME) - General Chief Complaint: Palpitations Stated Complaint: LEG PAIN,RECTAL PAIN Time Seen by Provider: 09/20/19 17:21 Primary Care Provider: CHAD OROZCO MD [Primary Care Provider] - Follow up as needed Mode of Arrival: Ambulatory Information source: Patient Notes: 29-year-old female presents to ED for complaint of hemorrhoid pain yesterday. She states she is done zvdc-lvq-[id number] suppositories for her hemorrhoids and immediately her legs gave out from under her and she fell. She states she also started having heart palpitations and was very weak. She states she has had intermittent heart palpitations and weakness since then. She states she called her on-call doctor and she spoke with her Dr. Treadwell and he told her to come to the emergency room and had of an evaluation. She states she does have a history of diabetes and some type of anemia that she needs to get iron transfusions for it. She states she has not had to have an iron transfusion in a while. She is alert oriented respirations regular and unlabored speaking in full sentences. I have greeted and performed a rapid initial assessment of this patient. A comprehensive ED assessment and evaluation of the patient, analysis of test results and completion of medical decision making process will be conducted by an additional ED providers. TRAVEL OUTSIDE OF THE [place] IN LAST 30 DAYS: No - Related Data Allergies/Adverse Reactions: methocarbamol Allergy (Verified 09/20/19 17:21) Past Medical History - Social History Chew tobacco use (# tins/day): No Frequency of alcohol use: None Drug Abuse: None Family history: Reviewed & Not Pertinent Endocrine Medical History: Reports: Hx Diabetes Mellitus Type 1, Hx Diabetes Mellitus Type 2 Renal/ Medical History: Denies: Hx Peritoneal Dialysis Past Surgical History: Reports: Hx Section - x2, Hx Tubal Ligation - Immunizations Immunizations up to date: Yes Hx Diphtheria, Pertussis, Tetanus Vaccination: Yes Physical Exam - Vital signs Vitals: Temp Pulse Resp BP Pulse Ox 98.3 F 100 18 137/89 H 100 09/20/19 17:04 09/20/19 17:04 09/20/19 17:04 09/20/19 17:04 09/20/19 17:04 Course - Vital Signs Vital signs: Temp Pulse Resp BP Pulse Ox 98.3 F 100 18 137/89 H 100 09/20/19 17:21 09/20/19 17:04 09/20/19 17:04 09/20/19 17:04 09/20/19 17:04 Doctor's Discharge - Discharge Referrals: CHAD OROZCO MD [Primary Care Provider] - Follow up as needed
--- NOTE | 2019-09-20 18:00 | RADIOLOGY REPORT (SQ) ---
EXAM DESCRIPTION: CHEST 2 VIEWS IMAGES COMPLETED DATE/TIME: 09/20/2019 5:50 pm REASON FOR STUDY: Heart palpitations COMPARISON: 02/25/2019 TECHNIQUE: Frontal and lateral radiographic views of the chest acquired. NUMBER OF VIEWS: Two view. LIMITATIONS: None. FINDINGS: LUNGS AND PLEURA: No pneumothorax. No consolidation or pleural effusion. MEDIASTINUM AND HILAR STRUCTURES: Stable. HEART AND VASCULAR STRUCTURES: Stable. BONES: No acute findings. HARDWARE: None in the chest. OTHER: No other significant finding. IMPRESSION: NO ACUTE FINDINGS. TECHNICAL DOCUMENTATION: JOB ID: [id number] [employer]- All Rights Reserved Reading location - IP/workstation name: [email or web address]
[2019-09-20 19:23] LABS: ABSOLUTE BASOPHILS # (AUTO) 0.1 10^3/uL (0.0-0.2); ABSOLUTE EOSINOPHILS # (AUTO) 0.2 10^3/uL (0.0-0.6); ABSOLUTE LYMPHOCYTES (AUTO) 2.4 10^3/uL (0.5-4.7); ABSOLUTE MONOCYTES (AUTO) 0.4 10^3/uL (0.1-1.4); ABSOLUTE NEUT (AUTO) 4.3 10^3/uL (1.7-8.2); BASOPHILS % (AUTO) 1.4 % (0-2); EOSINOPHILS % (AUTO) 2.3 % (0-6); HEMATOCRIT 30.2 % (36.0-47.0); HEMOGLOBIN 9.2 g/dL (12.0-15.5); LYMPHOCYTES % (AUTO) 32.9 % (13-45); MEAN CORPUSCULAR HGB CONC 30.5 g/dL (32.0-36.0); MEAN CORPUSCULAR VOLUME 65 fl (80-97); MONOCYTES % (AUTO) 5.2 % (3-13); PLATELET COUNT 423 10^3/uL (150-450); RED BLOOD COUNT 4.62 10^6/uL (3.72-5.28); RED CELL DISTRIBUTION WIDTH 16.4 % (11.5-14.0); SEGMENTED NEUTROPHILS % (AUTO) 58.2 % (42-78); TOTAL CELLS COUNTED % (AUTO) 100 %; WHITE BLOOD COUNT 7.4 10^3/uL (4.0-10.5)
[2019-09-20 19:38] LABS: ALBUMIN 4.1 g/dL (3.5-5.0); ALKALINE PHOSPHATASE 117 U/L (38-126); ANION GAP 7 (5-19); ASPARTATE AMINO TRANSFERASE 29 U/L (14-36); BILIRUBIN,TOTAL 0.5 mg/dL (0.2-1.3); BLOOD UREA NITROGEN 7 mg/dL (7-20); CALCIUM 9.6 mg/dL (8.4-10.2); CARBON DIOXIDE 26 mmol/L (22-30); CHLORIDE 99 mmol/L (98-107); POTASSIUM 3.8 mmol/L (3.6-5.0); TOTAL PROTEIN 7.5 g/dL (6.3-8.2)
[2019-09-20 19:50] LABS: GLUCOSE 400 mg/dL (75-110)
[2019-09-20 20:01] LABS: APPEARANCE,URINE SLIGHTLY-CLOUDY; BILIRUBIN,URINE NEGATIVE (NEGATIVE); COLOR,URINE STRAW; GLUCOSE, URINE >=500 mg/dL (NEGATIVE); KETONES,URINE TRACE mg/dL (NEGATIVE); LEUKOCYTE ESTERASE,URINE SMALL (NEGATIVE); NITRITE,URINE POSITIVE (NEGATIVE); PROTEIN,URINE NEGATIVE (NEGATIVE); URINE SPECIFIC GRAVITY 1.036; UROBILINOGEN,URINE NEGATIVE mg/dL (<2.0)
[2019-09-20 20:14] LABS: URINE AMPHETAMINES SCREEN NEGATIVE; URINE BARBITURATES SCREEN NEGATIVE; URINE BENZODIAZEPINES SCREEN NEGATIVE; URINE COCAINE SCREEN NEGATIVE; URINE MARIJUANA (THC) SCREEN NEGATIVE; URINE METHADONE SCREEN NEGATIVE; URINE PHENCYCLIDINE SCREEN NEGATIVE
--- NOTE | 2019-09-20 20:20 | ER Document Report ---
ED General - General Chief Complaint: Palpitations Stated Complaint: LEG PAIN,RECTAL PAIN Time Seen by Provider: 09/20/19 17:21 Primary Care Provider: CHAD OROZCO MD [COMMUNITY BASED STAFF] - Follow up as needed Mode of Arrival: Ambulatory Notes: Patient is a 29-year-old -[place] female with a history of type 2 diabetes who presents to the emergency department with a chief complaint of primarily hemorrhoid pain. She states she is been dealing with these hemorrhoids since she has had her children however she feels like they are not getting any better. She states that she also had an episode of palpitations yesterday that was transient and fleeting. She states that at a different point in the day she had an episode where she felt like her legs were trying to give out on her. She states that all these things have resolved today except the hemorrhoids. She called her regular doctor who advised if she could not wait until Saturday morning to come to the ER. Patient denies any bright red blood per rectum. Denies any trauma or blunt injuries. Denies any back pain or injury. Denies any numbness, tingling or weakness. Denies any saddle anesthesia. Denies any urinary complaints. Patient denies any chest pain or shortness of breath. No other pain, complaints or concerns at this time. TRAVEL OUTSIDE OF THE [place] IN LAST 30 DAYS: No - Related Data Allergies/Adverse Reactions: methocarbamol Allergy (Verified 09/20/19 17:21) Past Medical History - General Information source: Patient - Social History Smoking Status: Never Smoker Chew tobacco use (# tins/day): No Frequency of alcohol use: None Drug Abuse: None Family History: CAD, CVA, DM, Hypertension, Malignancy Patient has homicidal ideation: No Endocrine Medical History: Reports: Hx Diabetes Mellitus Type 1, Hx Diabetes Mellitus Type 2 Renal/ Medical History: Denies: Hx Peritoneal Dialysis Past Surgical History: Reports: Hx Section - x2, Hx Tubal Ligation - Immunizations Immunizations up to date: Yes Hx Diphtheria, Pertussis, Tetanus Vaccination: Yes Review of Systems - Review of Systems Cardiovascular: Palpitations Genitourinary: Other - Rectal pain Musculoskeletal: Muscle pain -: Yes All other systems reviewed and negative Physical Exam - Vital signs Vitals: Temp Pulse Resp BP Pulse Ox 98.3 F 100 18 137/89 H 100 09/20/19 17:04 09/20/19 17:04 09/20/19 17:04 09/20/19 17:04 09/20/19 17:04 - General General appearance: Appears well, Alert In distress: None - HEENT Head: Normocephalic, Atraumatic Eyes: Normal Conjunctiva: Normal Extraocular movements intact: Yes Eyelashes: Normal Pupils: PERRL Ears: Normal External canal: Normal Tympanic membrane: Normal Nasal: Normal Pharynx: Normal Neck: Normal, Supple - Respiratory Respiratory status: No respiratory distress Chest status: Nontender Breath sounds: Normal Chest palpation: Normal - Cardiovascular Rhythm: Regular Heart sounds: Normal auscultation Murmur: No - Abdominal Inspection: Normal Distension: No distension Bowel sounds: Normal Tenderness: Nontender Organomegaly: No organomegaly - Rectal Hemorrhoids: External Notes: Single external hemorrhoid at the 12 o'clock position that is compressible and slightly tender. No thrombosis. Surrounding the anus is a circumferential area inside the gluteal cleft that is demonstrating skin breakdown, appears raw and irritated with some mild fluid weeping. Consistent with a tinea infection. Exam chaperoned by female nurse. - Extremities General lower extremity: Other - Diffuse tenderness to the lower extremities to palpation. Full passive range of motion of the lower extremities. Gait slightly limited by pain in the legs. Normal DTRs - Neurological Neuro grossly intact: Yes Cognition: Normal Orientation: AAOx4 [place] Coma Scale Eye Opening: Spontaneous [place] Coma Scale Verbal: Oriented [place] Coma Scale Motor: Obeys Commands [place] Coma Scale Total: 15 Speech: Normal Motor strength normal: LUE, RUE, LLE, RLE Additional motor exam normals: No: Pronator drift Sensory: Normal - Psychological Associated symptoms: Normal affect, Normal mood - Skin Skin Temperature: Warm Skin Moisture: Dry Skin Color: Normal Course - Re-evaluation Re-evalutation: 09/21/19 00:01 Patient blood sugar was corrected to below 200 with the insulin and fluids. She advised the nurse that this is not where she normally lives and she does not feel well below 200 and she quickly began to consume sugary beverages and food. A os-Bacn-Unsn showed her to be back up into 300s with the patient states that she feels better. She has the tinea rash in the buttocks a nonthrombosed hemorrhoid, anemia and a UTI. She should be treated for the tinea in the UTI. She will follow-up regarding the anemia and continue her iron infusions as scheduled and discussed. We will give her Anusol for the hemorrhoid we discussed michaela gil's. Counseled her regarding the importance of outpatient follow-up with her primary doctor and advised that she return here any ER immediately with any new, persistent or worsening symptoms. She verbalized understood and agreed. - Vital Signs Vital signs: Temp Pulse Resp BP Pulse Ox 98.3 F 100 16 122/80 100 09/20/19 17:21 09/20/19 17:04 09/20/19 23:31 09/20/19 23:31 09/20/19 23:31 - Laboratory Result Diagrams: 09/20/19 17:10 09/20/19 17:10 Laboratory results interpreted by me: 09/20/19 09/20/19 09/20/19 17:10 17:10 19:29 Hgb 9.2 L Hct 30.2 L MCV 65 L MCH 20.0 L MCHC 30.5 L RDW 16.4 H Sodium 131.6 L Creatinine 0.39 L Glucose 400 H* POC Glucose Magnesium 1.3 L Urine Glucose (UA) >=500 H Urine Ketones TRACE H Urine Blood MODERATE H Urine Nitrite POSITIVE H Ur Leukocyte Esterase SMALL H 09/20/19 09/20/19 22:08 23:36 Hgb Hct MCV MCH MCHC RDW Sodium Creatinine Glucose POC Glucose 278 H 346 H Magnesium Urine Glucose (UA) Urine Ketones Urine Blood Urine Nitrite Ur Leukocyte Esterase Discharge - Discharge Clinical Impression: Tinea cruris, Hyperglycemia due to diabetes mellitus UTI (urinary tract infection) Qualifiers: Urinary tract infection type: site unspecified Hematuria presence: without hematuria Qualified Code(s): N39.0 - Urinary tract infection, site not specified Anemia Qualifiers: Anemia type: iron deficiency Iron deficiency anemia type: unspecified iron deficiency Qualified Code(s): D50.9 - Iron deficiency anemia, unspecified Hemorrhoid Qualifiers: Hemorrhoid type: unspecified Qualified Code(s): K64.9 - Unspecified hemorrhoids Condition: Stable Disposition: HOME, SELF-CARE Instructions: Urinary Tract Infection ([facility]), HC Hemorrhoid Cream ([facility]), Hyperglycemia ([facility]) Additional Instructions: Please call your regular doctor first thing in the morning for reevaluation and continuation of your conditions in outpatient setting for ongoing management. Please return here or any ER immediately with any new, persistent or worsening symptoms. Prescriptions: Hydrocortisone Acetate [Anusol-Hc] 25 mg RC DAILY PRN #15 supp.rect PRN Reason: Cephalexin Monohydrate [Keflex 500 mg Capsule] 500 mg PO Q6 #39 capsule Nystatin 1,000,000 unit MC TID #1 powder.ea. Referrals: CHAD OROZCO MD [COMMUNITY BASED STAFF] - Follow up as needed
[2019-09-20] MEDS ORDERED: NORMAL SALINE 1000 ML 1,000 ML IV ONE (20:21)
[2019-09-20] MEDS ORDERED: INSULIN REG, HUMAN 100 UNIT/ML 3 ML VIAL (PYX) SUBCUT ONE (20:21)
[2019-09-20] MEDS ORDERED: INSULIN REG, HUMAN 100 UNIT/ML 3 ML VIAL (PYX) IV ONE (20:22)
[2019-09-20] MEDS ORDERED: CEFTRIAXONE 1 GM/D5W RTU 1 GM/50 ML RTUPB IV ONE (21:00)
[2019-09-20] MEDS ORDERED: ONDANSETRON HCL INJ/PF 4 MG/2 ML SDV IV ONE (22:25)
--- NOTE | 2019-09-20 22:39 | EKG REPORT ---
SEVERITY:- BORDERLINE ECG - SINUS RHYTHM PROBABLE LEFT ATRIAL ABNORMALITY : Confirmed by: Anna De Leon MD 20-Sep-2019 22:38:17
[2019-09-21 00:30] VITALS: BP 136/59
== END 2019-09-21 00:30 | disposition home or self-care (01) ==
LOC: ER 16:54
DX: B35.6 Tinea cruris (principal); N39.0 Urinary tract infection, site not specified; E11.65 Type 2 diabetes mellitus with hyperglycemia; D50.9 Iron deficiency anemia, unspecified; K64.4 Residual hemorrhoidal skin tags; R00.2 Palpitations; K62.89 Other specified diseases of anus and rectum; M79.604 Pain in right leg; M79.605 Pain in left leg; M79.10 Myalgia, unspecified site; Z88.8 Allergy status to other drugs, medicaments and biological substances
CPT/HCPCS: 93005; 99284; 96361; 96374; 96375; 36415; 82962; 83690; 83735; 84703; 85025; 80053; 81001; 84484; 80307; 71046; 93010; J1815; J2405; J7030; J0696

== ENCOUNTER 2019-10-08 09:03 | Outpatient (CLI) | payer BC ==
[~2019-10-08 09:03] MED LIST changes: -FERUMOXYTOL (NON-ESRD) 510 MG/NS 100 ML IV PRN; +FERUMOXYTOL 510 MG in NORMAL SALINE 100 ML IV PRN
[2019-10-08 09:13] VITALS: BP 131/85
== END 2019-10-08 10:42 | disposition home or self-care (01) ==
LOC: II 09:03 → 5TH 09:06 → II 10:42
PROVIDERS: ATTEND Internal Medicine
DX: D50.9 Iron deficiency anemia, unspecified (principal); K90.9 Intestinal malabsorption, unspecified
CPT/HCPCS: 96365; Q0138; J7050

== ENCOUNTER 2019-10-15 08:56 | Outpatient (CLI) | payer BC ==
[2019-10-15 09:15] VITALS: BP 131/75
== END 2019-10-15 10:05 | disposition home or self-care (01) ==
LOC: II 08:56 → 5TH 08:58 → II 10:05
PROVIDERS: ATTEND Internal Medicine
DX: D50.9 Iron deficiency anemia, unspecified (principal); K90.9 Intestinal malabsorption, unspecified
CPT/HCPCS: 96365; Q0138; J7050

== ENCOUNTER 2019-12-23 14:38 | Emergency (ER) | payer BC ==
[2019-12-23] MEDS ORDERED: NORMAL SALINE 1000 ML 1,000 ML IV ONE (15:12)
--- NOTE | 2019-12-23 15:12 | ER Document Report ---
ED Medical Screen (RME) - General Chief Complaint: Abdominal Pain Stated Complaint: ABDOMINAL PAIN,BODY ACHES Time Seen by Provider: 12/23/19 15:05 Primary Care Provider: YANET MOONEY MD [Primary Care Provider] - Follow up as needed Mode of Arrival: Ambulatory Information source: Patient Notes: 29-year-old female presented to ED for complaint of abdominal pain and body aches. She states she is diabetic she was on her way to her primary care doctors for a visit when the school called her daughter was also sick. She went to school and got her daughter then came to the emergency room for the bus to be seen. Patient is alert oriented respirations regular nonlabored speaking in full sentences. She states she is very sick but she does not fix her diabetes. We will get blood urine venous blood gas Accu-Chek and IV fluids and she will be seen by up another provider. I have greeted and performed a rapid initial assessment of this patient. A comp rehensive ED assessment and evaluation of the patient, analysis of test results and completion of medical decision making process will be conducted by an additional ED providers. TRAVEL OUTSIDE OF THE [place] IN LAST 30 DAYS: No - Related Data Allergies/Adverse Reactions: methocarbamol Allergy (Verified 09/20/19 17:21) Past Medical History - Social History Family history: Reviewed & Not Pertinent Endocrine Medical History: Reports: Hx Diabetes Mellitus Type 1, Hx Diabetes Mellitus Type 2 Renal/ Medical History: Denies: Hx Peritoneal Dialysis Past Surgical History: Reports: Hx Section - x2, Hx Tubal Ligation - Immunizations Immunizations up to date: Yes Hx Diphtheria, Pertussis, Tetanus Vaccination: Yes Physical Exam - Vital signs Vitals: Temp Pulse Resp BP Pulse Ox 99 F 99 20 133/81 H 99 12/23/19 14:43 12/23/19 14:43 12/23/19 14:43 12/23/19 14:43 12/23/19 14:43 Course - Vital Signs Vital signs: Temp Pulse Resp BP Pulse Ox 99 F 99 20 133/81 H 99 12/23/19 14:43 12/23/19 14:43 12/23/19 14:43 12/23/19 14:43 12/23/19 14:43 Doctor's Discharge - Discharge Referrals: AYNET MOONEY MD [Primary Care Provider] - Follow up as needed
--- NOTE | 2019-12-23 17:08 | ER Document Report ---
ED GI/ - General Chief Complaint: Abdominal Pain Stated Complaint: ABDOMINAL PAIN,BODY ACHES Time Seen by Provider: 12/23/19 15:05 Primary Care Provider: YANET MOONEY MD [Primary Care Provider] - Follow up as needed Mode of Arrival: Ambulatory Information source: Patient Notes: Patient presents complaining of abdominal pain with nausea and diarrhea that s tarted today. Patient also reports generalized body aches and headache. Patient states she had diarrhea x2 episodes. Patient denies any vomiting. Patient denies any fever or urinary symptoms. Patient is here with child who has similar symptoms that started today. TRAVEL OUTSIDE OF THE [place] IN LAST 30 DAYS: No - HPI Patient complains to provider of: Abdominal pain, Diarrhea. No: Vomiting Onset: This morning Timing/Duration: Gradual Quality of pain: Sharp Pain Level: 4 Location: Epigastric Vaginal bleeding (Compared to normal period): None Menstrual period history: denies: Associated symptoms: Diarrhea, Nausea. denies: Blood in stool, Constipation, Vomiting Exacerbated by: Denies Relieved by: Denies Similar symptoms previously: No Recently seen / treated by doctor: No - Related Data Allergies/Adverse Reactions: methocarbamol Allergy (Verified 09/20/19 17:21) Past Medical History - General Information source: Patient - Social History Smoking Status: Never Smoker Frequency of alcohol use: Occasional Drug Abuse: None Occupation: None Lives with: Family Family History: CAD, CVA, DM, Hypertension, Malignancy - Medical History Medical History: Other - Anemia Endocrine Medical History: Reports: Hx Diabetes Mellitus Type 1 Renal/ Medical History: Denies: Hx Peritoneal Dialysis Past Surgical History: Reports: Hx Section - x2, Hx Tubal Ligation - Immunizations Immunizations up to date: Yes Hx Diphtheria, Pertussis, Tetanus Vaccination: Yes Review of Systems - Review of Systems Constitutional: No symptoms reported. denies: Fever EENT: No symptoms reported Cardiovascular: No symptoms reported. denies: Chest pain Respiratory: No symptoms reported. denies: Cough, Short of breath Gastrointestinal: Abdominal pain, Diarrhea, Nausea. denies: Vomiting Genitourinary: No symptoms reported. denies: Dysuria Female Genitourinary: No symptoms reported Musculoskeletal: No symptoms reported Skin: No symptoms reported Hematologic/Lymphatic: No symptoms reported Neurological/Psychological: Headaches. denies: Weakness Physical Exam - Vital signs Vitals: Temp Pulse Resp BP Pulse Ox 99 F 99 20 133/81 H 99 12/23/19 14:43 12/23/19 14:43 12/23/19 14:43 12/23/19 14:43 12/23/19 14:43 - General General appearance: Alert In distress: Mild - HEENT Head: Normocephalic, Atraumatic Eyes: Normal Conjunctiva: Normal Nasal: Normal Mouth/Lips: Normal Mucous membranes: Normal Neck: Normal, Supple. No: Lymphadenopathy - Respiratory Respiratory status: No respiratory distress Chest status: Nontender Breath sounds: Normal. No: Rales, Rhonchi, Stridor, Wheezing Chest palpation: Normal - Cardiovascular Rhythm: Regular Heart sounds: S1 appreciated, S2 appreciated - Abdominal Inspection: Obese Distension: No distension Bowel sounds: Normal Tenderness: Tender - epigastric Organomegaly: No organomegaly - Back Back: CVA tenderness - left - Extremities General upper extremity: Normal inspection, Normal strength General lower extremity: Normal inspection, Normal strength - Neurological Neuro grossly intact: Yes Cognition: Normal [place] Coma Scale Eye Opening: Spontaneous [place] Coma Scale Verbal: Oriented [place] Coma Scale Motor: Obeys Commands [place] Coma Scale Total: 15 - Psychological Associated symptoms: Normal affect, Normal mood - Skin Skin Temperature: Warm Skin Moisture: Dry Skin Color: Normal Course - Re-evaluation Re-evalutation: 12/23/19 19:22 Patient reports feeling better at this time, no additional vomiting. Patient's abdomen soft, no guarding. - Vital Signs Vital signs: Temp Pulse Resp BP Pulse Ox 98.0 F 98 18 120/79 100 12/23/19 21:27 12/23/19 21:27 12/23/19 21:27 12/23/19 21:27 12/23/19 21:27 - Laboratory Result Diagrams: 12/23/19 17:22 12/23/19 17:22 Laboratory results interpreted by me: 12/23/19 12/23/19 12/23/19 15:48 17:22 17:22 Hgb 11.5 L Hct 34.7 L MCV 74 L MCH 24.6 L RDW 20.1 H Sodium 135.4 L BUN 5 L Creatinine 0.42 L Glucose 313 H POC Glucose 380 H Urine Protein Urine Glucose (UA) Urine Ketones Urine Nitrite Ur Leukocyte Esterase 12/23/19 20:06 Hgb Hct MCV MCH RDW Sodium BUN Creatinine Glucose POC Glucose Urine Protein 30 H Urine Glucose (UA) >=500 H Urine Ketones 20 H Urine Nitrite POSITIVE H Ur Leukocyte Esterase TRACE H 12/24/19 01:55 Labs- All tests 24 hr 12/23/19 12/23/19 12/23/19 15:48 17:22 17:22 WBC 5.1 RBC 4.67 Hgb 11.5 L Hct 34.7 L MCV 74 L MCH 24.6 L MCHC 33.1 RDW 20.1 H Plt Count 385 Lymph % (Auto) 26.9 [place] % (Auto) 10.5 Eos % (Auto) 1.2 Baso % (Auto) 0.7 Absolute Neuts (auto) 3.1 Absolute Lymphs (auto) 1.4 Absolute Monos (auto) 0.5 Absolute Eos (auto) 0.1 Absolute Basos (auto) 0.0 Seg Neutrophils % 60.7 Clumped Platelets PRESENT Large Platelets PRESENT Platelet Comment ADEQUATE Polychromasia SLIGHT Hypochromasia SLIGHT Anisocytosis 2+ Microcytosis 1+ Sodium 135.4 L Potassium 4.0 Chloride 100 Carbon Dioxide 28 Anion Gap 7 BUN 5 L Creatinine 0.42 L Est GFR ( Amer) > 60 Est GFR (MDRD) Non-Af > 60 Glucose 313 H POC Glucose 380 H Calcium 9.7 Total Bilirubin 0.6 Direct Bilirubin 0.3 Neonat Total Bilirubin Not Reportable Neonat Direct Bilirubin Not Reportable Neonat Indirect Bili Not Reportable AST 25 ALT 21 Alkaline Phosphatase 102 Total Protein 7.4 Albumin 4.1 Lipase 78.9 Serum HCG, Qual Urine Color Urine Appearance Urine pH Ur Specific [place] Urine Protein Urine Glucose (UA) Urine Ketones Urine Blood Urine Nitrite Urine Bilirubin Urine Urobilinogen Ur Leukocyte Esterase Urine WBC (Auto) Urine RBC (Auto) U Hyaline Cast (Auto) Urine Bacteria (Auto) Squamous Epi Cells Auto Urine Mucus (Auto) Urine Ascorbic Acid 12/23/19 12/23/19 17:22 20:06 WBC RBC Hgb Hct MCV MCH MCHC RDW Plt Count Lymph % (Auto) [place] % (Auto) Eos % (Auto) Baso % (Auto) Absolute Neuts (auto) Absolute Lymphs (auto) Absolute Monos (auto) Absolute Eos (auto) Absolute Basos (auto) Seg Neutrophils % Clumped Platelets Large Platelets Platelet Comment Polychromasia Hypochromasia Anisocytosis Microcytosis Sodium Potassium Chloride Carbon Dioxide Anion Gap BUN Creatinine Est GFR ( Amer) Est GFR (MDRD) Non-Af Glucose POC Glucose Calcium Total Bilirubin Direct Bilirubin Neonat Total Bilirubin Neonat Direct Bilirubin Neonat Indirect Bili AST ALT Alkaline Phosphatase Total Protein Albumin Lipase Serum HCG, Qual NEGATIVE Urine Color YELLOW Urine Appearance SLIGHTLY-CLOUDY Urine pH 5.0 Ur Specific [place] 1.017 Urine Protein 30 H Urine Glucose (UA) >=500 H Urine Ketones 20 H Urine Blood NEGATIVE Urine Nitrite POSITIVE H Urine Bilirubin NEGATIVE Urine Urobilinogen NEGATIVE Ur Leukocyte Esterase TRACE H Urine WBC (Auto) 27 Urine RBC (Auto) 2 U Hyaline Cast (Auto) 5 Urine Bacteria (Auto) 3+ Squamous Epi Cells Auto 3 Urine Mucus (Auto) MOD Urine Ascorbic Acid NEGATIVE - Diagnostic Test Radiology reviewed: Reports reviewed Discharge - Discharge Clinical Impression: Encounter for screening laboratory testing for COVID-19 virus Abdominal pain Qualifiers: Abdominal location: epigastric Qualified Code(s): R10.13 - Epigastric pain Nausea & vomiting Qualifiers: Vomiting type: unspecified Vomiting Intractability: unspecified Qualified Code(s): R11.2 - Nausea with vomiting, unspecified UTI (urinary tract infection) Qualifiers: Urinary tract infection type: site unspecified Hematuria presence: without hematuria Qualified Code(s): N39.0 - Urinary tract infection, site not specified Condition: Stable Disposition: HOME, SELF-CARE Instructions: COVID-19 Guidance for Persons Under Investigation, Abdominal Pain ([facility]), Antinausea Medication ([facility]), Cephalexin ([facility]), Urinary Tract Infection ([facility]), Vomiting ([facility]) Additional Instructions: Return immediately for any new or worsening symptoms Followup with your primary care provider, call tomorrow to make a followup appointment Prescriptions: Cephalexin Monohydrate [Keflex 500 mg Capsule] 500 mg PO BID 5 Days #10 capsule Ondansetron [Zofran Odt 4 mg Tablet] 1 tab PO Q6H #15 tab.rapdis Referrals: YANET MOONEY MD [Primary Care Provider] - Follow up as needed
--- NOTE | 2019-12-23 17:47 | RADIOLOGY REPORT (SQ) ---
EXAM DESCRIPTION: CHEST SINGLE VIEW IMAGES COMPLETED DATE/TIME: 12/23/2019 5:08 pm REASON FOR STUDY: body aches diabetes COMPARISON: 09/20/2019 EXAM PARAMETERS: NUMBER OF VIEWS: One view. TECHNIQUE: Single frontal radiographic view of the chest acquired. RADIATION DOSE: NA LIMITATIONS: None. FINDINGS: LUNGS AND PLEURA: No opacities, masses or pneumothorax. No pleural effusion. MEDIASTINUM AND HILAR STRUCTURES: No masses. Contour normal. HEART AND VASCULAR STRUCTURES: Heart normal in size. Normal vasculature. BONES: No acute findings. HARDWARE: None in the chest. OTHER: No other significant finding. IMPRESSION: NO ACUTE RADIOGRAPHIC FINDING IN THE CHEST. TECHNICAL DOCUMENTATION: JOB ID: [id number] [employer]- All Rights Reserved Reading location - IP/workstation name: [email or web address]
[2019-12-23] MEDS ORDERED: MAG HYDROX/AL HYDROX/SIMETH SUSP 30 ML UDCUP PO ONE (17:49)
[2019-12-23] MEDS ORDERED: LIDOCAINE 2% VISCOUS SOLN 15 ML UDCUP PO ONE (17:49)
[2019-12-23 17:51] LABS: ABSOLUTE EOSINOPHILS # (AUTO) 0.1 10^3/uL (0.0-0.6); ABSOLUTE LYMPHOCYTES (AUTO) 1.4 10^3/uL (0.5-4.7); ABSOLUTE MONOCYTES (AUTO) 0.5 10^3/uL (0.1-1.4); ABSOLUTE NEUT (AUTO) 3.1 10^3/uL (1.7-8.2); BASOPHILS % (AUTO) 0.7 % (0-2); EOSINOPHILS % (AUTO) 1.2 % (0-6); HEMATOCRIT 34.7 % (36.0-47.0); HEMOGLOBIN 11.5 g/dL (12.0-15.5); LYMPHOCYTES % (AUTO) 26.9 % (13-45); MEAN CORPUSCULAR HEMOGLOBIN 24.6 pg (27.0-33.4); MEAN CORPUSCULAR HGB CONC 33.1 g/dL (32.0-36.0); MEAN CORPUSCULAR VOLUME 74 fl (80-97); MONOCYTES % (AUTO) 10.5 % (3-13); PLATELET COUNT 385 10^3/uL (150-450); RED BLOOD COUNT 4.67 10^6/uL (3.72-5.28); RED CELL DISTRIBUTION WIDTH 20.1 % (11.5-14.0); SEGMENTED NEUTROPHILS % (AUTO) 60.7 % (42-78); TOTAL CELLS COUNTED % (AUTO) 100 %; WHITE BLOOD COUNT 5.1 10^3/uL (4.0-10.5)
[2019-12-23] MEDS ORDERED: ONDANSETRON HCL INJ/PF 4 MG/2 ML SDV IV ONE (18:08)
[2019-12-23 18:13] LABS: ALBUMIN 4.1 g/dL (3.5-5.0); ALKALINE PHOSPHATASE 102 U/L (38-126); ANION GAP 7 (5-19); ASPARTATE AMINO TRANSFERASE 25 U/L (14-36); BILIRUBIN,DIRECT 0.3 mg/dL (0.0-0.4); BILIRUBIN,TOTAL 0.6 mg/dL (0.2-1.3); BLOOD UREA NITROGEN 5 mg/dL (7-20); CALCIUM 9.7 mg/dL (8.4-10.2); CARBON DIOXIDE 28 mmol/L (22-30); CHLORIDE 100 mmol/L (98-107); GLUCOSE 313 mg/dL (75-110); TOTAL PROTEIN 7.4 g/dL (6.3-8.2)
[2019-12-23 18:57] LABS: ANISOCYTOSIS 2+; HYPOCHROMASIA SLIGHT; PLATELET CLUMPS PRESENT; PLATELET COMMENT ADEQUATE; PLATELET LARGE PRESENT; POLYCHROMASIA SLIGHT
[2019-12-23] MEDS ORDERED: INSULIN REG, HUMAN 100 UNIT/ML 3 ML VIAL (PYX) SUBCUT ONE (19:07)
[2019-12-23 20:41] LABS: APPEARANCE,URINE SLIGHTLY-CLOUDY; BILIRUBIN,URINE NEGATIVE (NEGATIVE); COLOR,URINE YELLOW; GLUCOSE, URINE >=500 mg/dL (NEGATIVE); KETONES,URINE 20 mg/dL (NEGATIVE); LEUKOCYTE ESTERASE,URINE TRACE (NEGATIVE); NITRITE,URINE POSITIVE (NEGATIVE); PROTEIN,URINE 30 mg/dL (NEGATIVE); URINE SPECIFIC GRAVITY 1.017; UROBILINOGEN,URINE NEGATIVE mg/dL (<2.0)
[2019-12-23] MEDS ORDERED: CEPHALEXIN 500 MG CAPSULE PO ONE (21:07)
[2019-12-23 21:32] VITALS: BP 120/79
== END 2019-12-23 21:33 | disposition home or self-care (01) ==
LOC: ER 14:38
DX: N39.0 Urinary tract infection, site not specified (principal); U07.1 COVID-19; M79.10 Myalgia, unspecified site; R10.9 Unspecified abdominal pain; R19.7 Diarrhea, unspecified; E10.9 Type 1 diabetes mellitus without complications; Z20.828 Contact with and (suspected) exposure to other viral communicable diseases
CPT/HCPCS: 99284; 96361; 96374; 36415; 87086; 82962; 83690; 84703; 85025; 87088; 80053; 81001; 87186; 71045; U0003; J3490; J1815; J2405; J7030; C9803; 87635

== ENCOUNTER 2020-01-01 08:58 | Emergency (ER) | payer BC ==
--- NOTE | 2020-01-01 11:48 | RADIOLOGY REPORT (SQ) ---
EXAM DESCRIPTION: CHEST SINGLE VIEW IMAGES COMPLETED DATE/TIME: 01/01/2020 11:27 am REASON FOR STUDY: worsening covid symptoms COMPARISON: 12/23/2019 EXAM PARAMETERS: NUMBER OF VIEWS: One view. TECHNIQUE: Single frontal radiographic view of the chest acquired. RADIATION DOSE: NA LIMITATIONS: None. FINDINGS: LUNGS AND PLEURA: No opacities, masses or pneumothorax. No pleural effusion. MEDIASTINUM AND HILAR STRUCTURES: No masses. Contour normal. HEART AND VASCULAR STRUCTURES: Heart normal in size. Normal vasculature. BONES: No acute findings. HARDWARE: None in the chest. OTHER: No other significant finding. IMPRESSION: NO ACUTE RADIOGRAPHIC FINDING IN THE CHEST. TECHNICAL DOCUMENTATION: JOB ID: [id number] [employer]- All Rights Reserved Reading location - IP/workstation name: [email or web address]
[2020-01-01 11:53] LABS: ABSOLUTE EOSINOPHILS # (AUTO) 0.1 10^3/uL (0.0-0.6); ABSOLUTE LYMPHOCYTES (AUTO) 2.2 10^3/uL (0.5-4.7); ABSOLUTE MONOCYTES (AUTO) 0.4 10^3/uL (0.1-1.4); ABSOLUTE NEUT (AUTO) 3.2 10^3/uL (1.7-8.2); BASOPHILS % (AUTO) 0.8 % (0-2); EOSINOPHILS % (AUTO) 1.6 % (0-6); HEMATOCRIT 37.2 % (36.0-47.0); HEMOGLOBIN 12.4 g/dL (12.0-15.5); LYMPHOCYTES % (AUTO) 36.8 % (13-45); MEAN CORPUSCULAR HEMOGLOBIN 24.5 pg (27.0-33.4); MEAN CORPUSCULAR HGB CONC 33.3 g/dL (32.0-36.0); MEAN CORPUSCULAR VOLUME 74 fl (80-97); MONOCYTES % (AUTO) 6.9 % (3-13); PLATELET COUNT 381 10^3/uL (150-450); RED BLOOD COUNT 5.05 10^6/uL (3.72-5.28); RED CELL DISTRIBUTION WIDTH 18.5 % (11.5-14.0); SEGMENTED NEUTROPHILS % (AUTO) 53.9 % (42-78); TOTAL CELLS COUNTED % (AUTO) 100 %; WHITE BLOOD COUNT 5.8 10^3/uL (4.0-10.5)
[2020-01-01 12:15] LABS: ALBUMIN 4.5 g/dL (3.5-5.0); ALKALINE PHOSPHATASE 92 U/L (38-126); ANION GAP 11 (5-19); ANISOCYTOSIS 2+; ASPARTATE AMINO TRANSFERASE 21 U/L (14-36); BILIRUBIN,DIRECT 0.3 mg/dL (0.0-0.4); BILIRUBIN,TOTAL 0.5 mg/dL (0.2-1.3); BLOOD UREA NITROGEN 8 mg/dL (7-20); CALCIUM 10.1 mg/dL (8.4-10.2); CARBON DIOXIDE 25 mmol/L (22-30); CHLORIDE 100 mmol/L (98-107); GLUCOSE 353 mg/dL (75-110); POTASSIUM 4.2 mmol/L (3.6-5.0)
[2020-01-01 12:16] LABS: PLATELET COMMENT ADEQUATE
[2020-01-01 12:18] LABS: OVALOCYTES SLIGHT; PLATELET CLUMPS PRESENT; POLYCHROMASIA SLIGHT
--- NOTE | 2020-01-01 12:23 | ER Document Report ---
Entered by MINDA STANFORD SCRIBE 01/01/20 1111 Acting as scribe for:ROSENDO NATHAN MD ED Respiratory Problem - General Chief Complaint: Chest Tightness Stated Complaint: CHEST PAIN Time Seen by Provider: 01/01/20 10:27 Primary Care Provider: YANET MOONEY MD [Primary Care Provider] - Follow up as needed Mode of Arrival: Ambulatory Information source: Patient Notes: This 29 year old female patient who tested positive for COVID-19 on 12/23/2019 presents to the emergency department today stating she "feels worse". She reports that she was getting better until this morning when she woke up with nausea which has continued since 12/22 as well as tightness under her left breast. She reports that two days ago she lost her taste/smell. Patient mentions that her sugars have been running high since getting COVID. She denies vomiting, fevers, chills, cough, or shortness of breath. TRAVEL OUTSIDE OF THE [place] IN LAST 30 DAYS: No - Related Data Allergies/Adverse Reactions: methocarbamol Allergy (Verified 09/20/19 17:21) Past Medical History - General Information source: Patient - Social History Smoking Status: Never Smoker Cigarette use (# per day): No Chew tobacco use (# tins/day): No Frequency of alcohol use: Social Drug Abuse: None Lives with: Family Family History: Reviewed & Not Pertinent, CAD, CVA, DM, Hypertension, Malignancy Patient has homicidal ideation: No Endocrine Medical History: Reports: Other - IDDM Past Surgical History: Reports: Hx Section - x2, Hx Tubal Ligation - Immunizations Immunizations up to date: Yes Hx Diphtheria, Pertussis, Tetanus Vaccination: Yes Review of Systems - Review of Systems Constitutional: denies: Chills, Fever EENT: No symptoms reported Cardiovascular: See HPI, Chest pain Respiratory: denies: Cough, Short of breath Gastrointestinal: See HPI, Nausea. denies: Vomiting Genitourinary: No symptoms reported Female Genitourinary: No symptoms reported Musculoskeletal: No symptoms reported Skin: No symptoms reported Hematologic/Lymphatic: No symptoms reported Neurological/Psychological: No symptoms reported -: Yes All other systems reviewed and negative Physical Exam - Vital signs Vitals: Temp Pulse Resp BP Pulse Ox 99 F 85 19 117/81 100 01/01/20 09:10 01/01/20 09:10 01/01/20 09:10 01/01/20 09:10 01/01/20 09:10 - Notes Notes: Physical Exam: General: Alert, appears uncomfortable. Wrapped up in black blanket. HEENT: Normocephalic. Atraumatic. PERRL. Extraocular movements intact. Oropharynx clear. Neck: Supple. Non-tender. Respiratory: No respiratory distress. Clear and equal breath sounds bilaterally. Cardiovascular: Regular rate and rhythm. Abdominal: Obese. Non-tender. No distension. Normal Bowel Sounds. Back: No gross abnormalities. Extremities: Moves all four extremities. Upper extremities: Normal inspection. Normal ROM. Lower extremities: Normal inspection. No edema. Normal ROM. Neurological: Normal cognition. AAOx4. Normal speech. Psychological: Normal affect. Normal Mood. Skin: Warm. Dry. Normal color. Course - Re-evaluation Re-evalutation: 01/01/20 13:19 The patient was evaluated during the global COVID-19 pandemic and that diagnosis was suspected/considered upon their initial presentation. Their evaluation, treatment and testing was consistent with current guidelines for patients who present with complaints or symptoms that may be related to COVID-19. Patient's chest x-ray is clear. CBC shows a iron deficiency anemia but otherwise is normal. Chem-12 shows a sugar of 358, and patient has a hemoglobin A1c of 13.5 - Vital Signs Vital signs: Temp Pulse Resp BP Pulse Ox 99 F 85 19 117/81 100 01/01/20 09:57 01/01/20 09:10 01/01/20 09:10 01/01/20 09:10 01/01/20 09:10 - Laboratory Result Diagrams: 01/01/20 11:15 01/01/20 11:15 Laboratory results interpreted by me: 01/01/20 01/01/20 01/01/20 11:15 11:15 11:15 MCV 74 L MCH 24.5 L RDW 18.5 H Sodium 135.9 L Creatinine 0.44 L Glucose 353 H Hemoglobin A1c % 13.5 H Magnesium 1.5 L Discharge - Discharge Clinical Impression: Laboratory confirmed diagnosis of COVID-19, Viral syndrome, Cough, Poorly controlled diabetes mellitus Condition: Stable Disposition: HOME, SELF-CARE Additional Instructions: Your chest x-ray today was clear. Your d-dimer and serum ferritin were low, these tests go high when COVID infec tion is getting bad. Your blood sugar was quite high today, and your hemoglobin A1c was 13.5 Continue your regular medications. Continue isolating at home. Be sure to check your sugars regularly and increase your insulin dosing as needed. Drink plenty of fluids and get plenty of rest. Take Delsym DM to help control your cough if needed. Follow-up with your primary care provider when you get over the COVID symptoms to review your diabetes medication regimen so that you can get better control of your sugars. RETURN TO THE EMERGENCY ROOM IF ANY NEW OR WORSENING SYMPTOMS. Referrals: YANET MOONEY MD [Primary Care Provider] - Follow up as needed I personally performed the services described in the documentation, reviewed and edited the documentation which was dictated to the scribe in my presence, and it accurately records my words and actions.
[2020-01-01 12:48] LABS: FERRITIN 9.39 ng/mL (6.2-137.0)
[2020-01-01 13:36] VITALS: BP 118/70
--- NOTE | 2020-01-01 21:19 | EKG REPORT ---
SEVERITY:- BORDERLINE ECG - SINUS RHYTHM PROBABLE LEFT ATRIAL ABNORMALITY BORDERLINE T WAVE ABNORMALITIES : Confirmed by: Anna De Leon MD 01-Jan-2020 21:18:51
== END 2020-01-01 13:40 | disposition home or self-care (01) ==
LOC: ER 08:58
DX: U07.1 COVID-19 (principal); B34.9 Viral infection, unspecified; R07.9 Chest pain, unspecified; R05 Cough; E11.9 Type 2 diabetes mellitus without complications; E66.9 Obesity, unspecified; Z98.51 Tubal ligation status
CPT/HCPCS: 36415; 71045; 80053; 82728; 83036; 83735; 85025; 85379; 87040; 93005; 93010; 99285

== ENCOUNTER 2020-04-15 18:50 | Emergency (ER) | payer BC ==
[2020-04-15] MEDS ORDERED: KETOROLAC TROMETHAMINE INJ/PF 30 MG/1 ML SDV IV ONE (19:38)
--- NOTE | 2020-04-15 19:39 | ER Document Report ---
ED Medical Screen (RME) - General Chief Complaint: Flank Pain Stated Complaint: FLANK PAIN,URINARY URGENCY Time Seen by Provider: 04/15/20 19:37 Primary Care Provider: YANET MOONEY MD [Primary Care Provider] - Follow up as needed Notes: HPI: 30-year-old female presenting with 7 or 8 days of dysuria. States she went to primary care they diagnosed her with a UTI placed her on cephalexin. She has been taking this all week. States symptoms are progressively worsening now with bilateral flank and back pain. Also has a pressure in the suprapubic region. Has had nausea no vomiting no fever. Patient states he did call her today and told her the culture necessitated a change in antibiotics but she does not know what they were calling her and as she has not yet picked it up. PHYSICAL EXAMINATION: Mildly uncomfortable. Mild bilateral CVA tenderness. Mild tenderness over the suprapubic region on palpation limited exam in triage process I have greeted and performed a rapid initial assessment of this patient. A comprehensive ED assessment and evaluation of the patient, analysis of test results and completion of medical decision making process will be conducted by an additional ED providers. Please note that clinical decision making for this patient was made during the 2019 pandemic of novel coronavirus which caused a significant strain on the healthcare system including at this particular facility. Criteria for admission discharge and level of care decisions as well as treatment decisions have necessarily changed TRAVEL OUTSIDE OF THE [place] IN LAST 30 DAYS: No - Related Data Allergies/Adverse Reactions: methocarbamol Allergy (Verified 09/20/19 17:21) Past Medical History - Social History Family history: Reviewed & Not Pertinent Endocrine Medical History: Reports: Hx Diabetes Mellitus Type 1, Hx Diabetes Mellitus Type 2 Renal/ Medical History: Denies: Hx Peritoneal Dialysis Past Surgical History: Reports: Hx Section - x2, Hx Tubal Ligation - Immunizations Immunizations up to date: Yes Hx Diphtheria, Pertussis, Tetanus Vaccination: Yes Physical Exam - Vital signs Vitals: Temp Pulse Resp BP Pulse Ox 98.4 F 87 20 152/94 H 100 04/15/20 18:59 04/15/20 18:59 04/15/20 18:59 04/15/20 18:59 04/15/20 18:59 Course - Vital Signs Vital signs: Temp Pulse Resp BP Pulse Ox 98.4 F 87 20 152/94 H 100 04/15/20 18:59 04/15/20 18:59 04/15/20 18:59 04/15/20 18:59 04/15/20 18:59 Doctor's Discharge - Discharge Referrals: YANET MOONEY MD [Primary Care Provider] - Follow up as needed
[2020-04-15 20:43] LABS: APPEARANCE,URINE CLEAR; BILIRUBIN,URINE NEGATIVE (NEGATIVE); COLOR,URINE YELLOW; GLUCOSE, URINE >=500 mg/dL (NEGATIVE); KETONES,URINE TRACE mg/dL (NEGATIVE); LEUKOCYTE ESTERASE,URINE NEGATIVE (NEGATIVE); NITRITE,URINE POSITIVE (NEGATIVE); PROTEIN,URINE NEGATIVE (NEGATIVE); URINE SPECIFIC GRAVITY 1.033; UROBILINOGEN,URINE NEGATIVE mg/dL (<2.0)
[2020-04-15 21:48] LABS: ABSOLUTE EOSINOPHILS # (AUTO) 0.1 10^3/uL (0.0-0.6); ABSOLUTE LYMPHOCYTES (AUTO) 2.8 10^3/uL (0.5-4.7); ABSOLUTE MONOCYTES (AUTO) 0.5 10^3/uL (0.1-1.4); ABSOLUTE NEUT (AUTO) 4.2 10^3/uL (1.7-8.2); BASOPHILS % (AUTO) 0.5 % (0-2); EOSINOPHILS % (AUTO) 1.2 % (0-6); HEMATOCRIT 30.1 % (36.0-47.0); HEMOGLOBIN 9.4 g/dL (12.0-15.5); LYMPHOCYTES % (AUTO) 36.6 % (13-45); MEAN CORPUSCULAR HEMOGLOBIN 20.1 pg (27.0-33.4); MEAN CORPUSCULAR HGB CONC 31.3 g/dL (32.0-36.0); MONOCYTES % (AUTO) 6.1 % (3-13); PLATELET COUNT 388 10^3/uL (150-450); RED BLOOD COUNT 4.68 10^6/uL (3.72-5.28); RED CELL DISTRIBUTION WIDTH 15.5 % (11.5-14.0); SEGMENTED NEUTROPHILS % (AUTO) 55.6 % (42-78); TOTAL CELLS COUNTED % (AUTO) 100 %; WHITE BLOOD COUNT 7.6 10^3/uL (4.0-10.5)
[2020-04-15 21:53] LABS: MEAN CORPUSCULAR VOLUME 64 fl (80-97)
[2020-04-15 22:04] LABS: POLYCHROMASIA SLIGHT
[2020-04-15 22:05] LABS: ANISOCYTOSIS SLIGHT; OVALOCYTES SLIGHT; PLATELET COMMENT ADEQUATE; TARGET CELLS SLIGHT; TEAR DROP CELLS SLIGHT
[2020-04-15 22:06] LABS: HYPOCHROMASIA SLIGHT; POIKILOCYTOSIS SLIGHT
[2020-04-15 22:15] LABS: ALBUMIN 4.6 g/dL (3.5-5.0); ALKALINE PHOSPHATASE 100 U/L (38-126); ANION GAP 8 (5-19); ASPARTATE AMINO TRANSFERASE 19 U/L (14-36); BILIRUBIN,DIRECT 0.2 mg/dL (0.0-0.4); BILIRUBIN,TOTAL 0.5 mg/dL (0.2-1.3); BLOOD UREA NITROGEN 12 mg/dL (7-20); CALCIUM 10.3 mg/dL (8.4-10.2); CARBON DIOXIDE 27 mmol/L (22-30); CHLORIDE 97 mmol/L (98-107); POTASSIUM 4.5 mmol/L (3.6-5.0); TOTAL PROTEIN 8.2 g/dL (6.3-8.2)
[2020-04-15 22:24] LABS: GLUCOSE 408 mg/dL (75-110)
--- NOTE | 2020-04-15 23:42 | RADIOLOGY REPORT (SQ) ---
EXAM DESCRIPTION: CT ABDOMEN PELVIS WITH IV CONTRAST COMPLETED DATE/TME: 04/15/2020 22:55 CLINICAL HISTORY: 30 years, Female, pyelonephritis TECHNIQUE: Contiguous axial CT images of the abdomen and pelvis. Intravenous contrast: Present. Oral contrast: Absent. DLP 1500 mGy-cm. This exam was performed according to our departmental dose-optimization program, which includes automated exposure control, adjustment of the mA and/or kV according to patient size and/or use of iterative reconstruction technique. COMPARISON: 10/03/2018. FINDINGS: Lower chest: Partially imaged. Lung bases: Unremarkable. Cardiac apex: Unremarkable. Solid abdominal viscera: Liver: Unremarkable. Gallbladder: Unremarkable. Pancreas: Unremarkable. Spleen: Unremarkable. Adrenal glands: Unremarkable. Right kidney: No hydronephrosis. Normal enhancement. Left kidney: No hydronephrosis. Normal enhancement. Urinary bladder: Unremarkable. Abdominal aorta: Unremarkable. Peritoneal: Free fluid: Trace. Free air: None. Other: No pathologic sized lymph nodes in the upper abdomen. Bowel: Stomach: Unremarkable. Small bowel: Unremarkable. Appendix: Unremarkable. Colon: Unremarkable. Rectum: Unremarkable. Uterus: Unremarkable. Bones: Unremarkable. IMPRESSION: No CT evidence of acute process of the abdomen. No evidence of pyelonephritis.
[2020-04-15] MEDS ORDERED: NORMAL SALINE 1000 ML 1,000 ML IV ONE ×2 (23:46→23:51)
[2020-04-15] MEDS ORDERED: RINGERS SOLUTION,LACTATED 1,000 ML IV PRN (23:48)
[2020-04-15] MEDS ORDERED: RINGERS SOLUTION,LACTATED 1,000 ML IV ONE (23:51)
[2020-04-15] MEDS ORDERED: CEFTRIAXONE 1 GM/D5W RTU 1 GM/50 ML RTUPB IV ONE ×2 (23:58→23:59)
--- NOTE | 2020-04-16 00:11 | ER Document Report ---
ED General - General Chief Complaint: Flank Pain Stated Complaint: FLANK PAIN,URINARY URGENCY Time Seen by Provider: 04/15/20 19:37 Primary Care Provider: YANET MOONEY MD [Primary Care Provider] - Follow up as needed TRAVEL OUTSIDE OF THE [place] IN LAST 30 DAYS: No - HPI Notes: 30-year-old female presents with dysuria. Patient states she has had dysuria for the past 7 to 8 days. She was started on Cipro, however was called to say that this was resistant and was prescribed a new antibiotic but she has not yet picked that up. She reports that she has had some suprapubic pain and pain to her bilateral flanks. No vomiting. No fever. In terms of her high blood reyes gar, patient states that her sugars are always very high, she states she takes insulin, she states that she is going to undergo pancreas testing to see why she is so resistant. - Related Data Allergies/Adverse Reactions: methocarbamol Allergy (Verified 09/20/19 17:21) Home Medications: insulin Past Medical History - General Information source: Patient - Social History Smoking Status: Current Some Day Smoker Family History: Reviewed & Not Pertinent, CAD, CVA, DM, Hypertension, Malignancy Endocrine Medical History: Reports: Hx Diabetes Mellitus Type 1, Hx Diabetes Mellitus Type 2 Renal/ Medical History: Denies: Hx Peritoneal Dialysis Past Surgical History: Reports: Hx Section - x2, Hx Tubal Ligation - Immunizations Immunizations up to date: Yes Hx Diphtheria, Pertussis, Tetanus Vaccination: Yes Review of Systems - Review of Systems Constitutional: denies: Fever EENT: No symptoms reported Cardiovascular: No symptoms reported Respiratory: No symptoms reported Gastrointestinal: No symptoms reported Genitourinary: Dysuria, Flank pain Female Genitourinary: No symptoms reported Musculoskeletal: No symptoms reported Skin: No symptoms reported Hematologic/Lymphatic: No symptoms reported Neurological/Psychological: No symptoms reported Physical Exam - Vital signs Vitals: Temp Pulse Resp BP Pulse Ox 98.4 F 87 20 152/94 H 100 04/15/20 18:59 04/15/20 18:59 04/15/20 18:59 04/15/20 18:59 04/15/20 18:59 - General General appearance: Appears well, Alert In distress: None - HEENT Head: Normocephalic, Atraumatic Extraocular movements intact: Yes Pupils: PERRL - Respiratory Breath sounds: Normal - Cardiovascular Rhythm: Regular Heart sounds: Normal auscultation - Abdominal Distension: No distension Tenderness: Nontender - Back Back: No: CVA tenderness - Extremities General upper extremity: Normal ROM General lower extremity: Normal ROM - Neurological Neuro grossly intact: Yes Cognition: Normal Orientation: AAOx4 - Psychological Associated symptoms: Normal affect - Skin Skin Temperature: Warm Course - Re-evaluation Re-evalutation: 30-year-old female uncontrolled diabetic at baseline here with dysuria, known UTI and apparently on resistant antibiotic. Reviewed her med list, looks like Bactrim was called in for her today. On exam she is alert and well-appearing, afebrile, she does not have any CVA tenderness. Through triage she had labs and a CT abdomen done. There is no leukocytosis. Normal bicarb, no anion gap, creatinine within normal limits, potassium within normal limits. She is nitrite positive in her urine, sent for culture. CT abdomen does not demonstrate evidence of pyelonephritis. She is given a dose of Rocephin and fluids, also a dose of [place] for pain control. 04/16/20 01:17 Glucose has down trended and appears to be within patient's normal values. She already has a prescription for Bactrim written. Discussed with her importance o f filling this prescription. Return precautions given, stable time of discharge. - Vital Signs Vital signs: Temp Pulse Resp BP Pulse Ox 98.9 F 80 15 132/82 H 96 04/16/20 02:32 04/16/20 02:32 04/16/20 02:32 04/16/20 02:32 04/16/20 02:32 - Laboratory Results Result Diagrams: 04/15/20 21:21 04/15/20 21:21 Laboratory Results Interpreted: 04/15/20 04/15/20 04/15/20 19:59 21:21 21:21 Hgb 9.4 L Hct 30.1 L MCV 64 L MCH 20.1 L MCHC 31.3 L RDW 15.5 H Sodium 131.9 L Chloride 97 L Glucose 408 H* POC Glucose Calcium 10.3 H Urine Glucose (UA) >=500 H Urine Ketones TRACE H Urine Nitrite POSITIVE H 04/15/20 04/16/20 23:39 01:06 Hgb Hct MCV MCH MCHC RDW Sodium Chloride Glucose POC Glucose 433 H* 376 H Calcium Urine Glucose (UA) Urine Ketones Urine Nitrite Critical Laboratory Results Reviewed: Yes Attending or Supervising Physician who Reviewed Labs: DIANNE PRECIADO - Radiology Results Critical Radiology Results Reviewed: No Critical Results Discharge - Discharge Clinical Impression: Hyperglycemia due to diabetes mellitus, Bacterial UTI Disposition: HOME, SELF-CARE Instructions: Trimethoprim-Sulfa ([facility]) Additional Instructions: Please lemon picker the Bactrim that was prescribed to you. Be sure to drink plenty of fluids. Please follow-up as planned to address your high glucose levels. Return to the emergency department for any concerning worsening symptoms. Referrals: YANET MOONEY MD [Primary Care Provider] - Follow up as needed
[2020-04-16] MEDS ORDERED: HYDROCODONE/ACETAMINOPHEN 5-325 MG TABLET PO ONE (00:20)
[2020-04-16 02:34] VITALS: BP 132/82
== END 2020-04-16 02:33 | disposition home or self-care (01) ==
LOC: ER 18:50
DX: N39.0 Urinary tract infection, site not specified (principal); B96.89 Other specified bacterial agents as the cause of diseases classified elsewhere; Z16.23 Resistance to quinolones and fluoroquinolones; E11.65 Type 2 diabetes mellitus with hyperglycemia; R10.30 Lower abdominal pain, unspecified; R10.9 Unspecified abdominal pain; F17.200 Nicotine dependence, unspecified, uncomplicated; Z79.4 Long term (current) use of insulin; Z98.51 Tubal ligation status; Z88.8 Allergy status to other drugs, medicaments and biological substances
CPT/HCPCS: 99285; 96361; 96375; 96365; 36415; 87086; 82962; 84703; 85025; 87088; 80053; 81001; 87186; 74177; J1885; J7030; J7120; J0696